=== PATIENT | female | born 1940 | race Caucasian/White ===

== ENCOUNTER → 2018-02-21 08:21 | Outpatient (CLI) | payer MEDICARE, OTHER, SELFPAY ==
[2018-02-21 09:48] LABS: Hemoglobin A1C% w Est Avg Glu 6.8 % (4.0-6.0)
[2018-02-21 10:35] LABS: Vitamin D 25 Hydroxy (D3) 34.4 ng/mL (30.0-100.0)
== END ==
PROVIDERS: PCP Physician Assistant; Visit Provider Physician Assistant
DX: E11.8 Type 2 diabetes mellitus with unspecified complications (principal); M81.0 Age-related osteoporosis without current pathological fracture
CPT/HCPCS: 36415; 82306; 83036

== ENCOUNTER → 2018-07-14 08:41 | Outpatient (CLI) | payer MEDICARE, OTHER, SELFPAY ==
[2018-07-14 09:23] LABS: Hemoglobin A1C% w Est Avg Glu 8.3 % (4.0-6.0)
[2018-07-14 09:24] LABS: Alanine Aminotransferase 27 IU/L (9-52); Albumin 4.2 g/dL (3.5-5.0); Albumin Globulin Ratio 1.6 (1.0-2.8); Alkaline Phosphatase 77 U/L (38-126); Aspartate Aminotransferase 32 IU/L (14-36); BUN Creatinine Ratio 14.3 (6-22); Bilirubin Total 0.6 mg/dL (0.2-1.3); Blood Urea Nitrogen 10 mg/dL (7-17); Calcium 9.5 mg/dL (8.4-10.2); Carbon Dioxide 26 mmol/L (22-32); Chloride 105 mmol/L (98-107); Cholesterol 250 mg/dL (140-199); Estimated Glomerular Filt Rate > 60.0 mL/min (>60); Globulin 2.7 g/dL (1.7-4.1); Glucose 132 mg/dL (80-110); HDL Cholesterol 65 mg/dL (40-60); HEMOLYSIS < 15 (0-50); LDL Cholesterol Calculated 165 mg/dL (<100); Potassium 4.7 mmol/L (3.4-5.1); Sodium 143 mmol/L (137-145); Total Protein 6.9 g/dL (6.3-8.2); Triglycerides 98 mg/dL (35-150)
[2018-07-14 09:33] LABS: Creatinine Urine Random 165.1 mg/dL
[2018-07-14 09:39] LABS: Microalbumi Creatinin Ratio Ur 38.7 ug/mg CR (<30); Microalbumin Urine Random 6.4 mg/dL (0-1.6)
[2018-07-14 09:50] LABS: Vitamin D 25 Hydroxy (D3) 49.1 ng/mL (30.0-100.0)
== END ==
PROVIDERS: PCP Physician Assistant; Visit Provider Physician Assistant
DX: E11.65 Type 2 diabetes mellitus with hyperglycemia (principal); I10 Essential (primary) hypertension; I25.10 Atherosclerotic heart disease of native coronary artery without angina pectoris; E78.2 Mixed hyperlipidemia; M81.0 Age-related osteoporosis without current pathological fracture
CPT/HCPCS: 36415; 80053; 80061; 82043; 82306; 82570; 83036

== ENCOUNTER 2018-10-07 07:54 | Emergency (ER) | payer MEDICARE, OTHER, SELFPAY ==
[2018-10-07 07:58] VITALS: BP 113/77; PULSE 94; RESP 16; TEMP 37.3; O2SAT 98; BMI 23.1
--- NOTE | 2018-10-07 08:39 | ED.HEATRA ---
HPI - Head Injury General Chief complaint: Head Injury Stated complaint: BUMP ON HEAD. FELL Time Seen by Provider: 10/07/18 08:31 Source: patient and family Mode of arrival: ambulatory Limitations: no limitations History of Present Illness HPI Narrative: This is a 78-year-old female comes to the emergency department with complaint of head injury. She states Saturday she was getting out of the car she stepped back and there was a drop off and she fell backwards striking her head on a rubber mat for a wheelchair ramp. Patient states she had a large bruise right away. She denies loss of consciousness. It was a witnessed fall. She does take aspirin she states every other day. Patient states that she has not had any other injuries. She denies any neck or back pain. She has some generalized muscular discomfort throughout her entire back. Patient states that she came in today because she was out of town. Patient is denying any dizziness, no vision changes, no nausea or vomiting. She has not had any other GI or urinary symptoms. No difficulty with breathing or chest pain. Patient states that she is scheduled for a trigger finger surgery tomorrow. Related Data Home Medications Medication Instructions Recorded Confirmed ASPIRIN (Aspir-Low) 81 mg PO QDAY #0 08/13/12 07/29/18 chlorpheniramine maleate 4 mg PO QDAY #0 06/12/16 07/29/18 [Aller-Chlor] [MAGNESIUM] 1 tab PO QDAY #0 06/13/17 07/29/18 [VITAMIN E] 1 tab PO QDAY #0 06/13/17 07/29/18 lysine 500 mg PO QDAY #0 06/13/17 07/29/18 sodium chloride 10 ml IH PRN PRN #0 11/20/17 07/29/18 Advair Diskus 500 mcg/50 mcg See Label Instructions .ROUTE 07/29/18 07/29/18 .COMPLEX Fluticasone 50 mcg See Label Instructions .ROUTE 07/29/18 07/29/18 .COMPLEX Miralax See Label Instructions .ROUTE 07/29/18 07/29/18 .COMPLEX Previous Rx's Medication Instructions Recorded calcium carbonate-vitamin D3 1 tab PO BID #180 tab 06/13/17 [Oyster Shell Calcium-Vit D3] albuterol sulfate HFA 90 2 puff INHALATION Q4-6HP PRN #3 ea 05/22/18 mcg/actuation aerosol inhaler citalopram 20 mg tablet 20 mg PO QDAY #90 tab 05/22/18 glipizide ER 2.5 mg tablet, 2.5 - 5 mg PO QDAY #180 tab 05/22/18 extended release 24 hr metformin 500 mg tablet 500 mg PO TID #180 tab 05/22/18 pantoprazole 40 mg tablet,delayed 40 mg PO HS #90 tab 05/22/18 release rosuvastatin 40 mg tablet 40 mg PO HS #90 tab 05/22/18 tretinoin 0.05 % topical cream 1 applictn TOPICAL HS #45 gram 05/22/18 [Test Strips] #100 each 07/09/18 acarbose 25 mg tablet 25 mg PO TID #90 tab 08/04/18 alendronate 40 mg tablet 40 mg PO QWEEK #12 tab 08/04/18 Allergies Allergy/AdvReac Type Severity Reaction Status Date / Time doxycycline Allergy Mild BLISTERS Verified 10/07/18 07:58 Review of Systems Constitutional Denies headache(s) and Reports other (head injury, bruise/hematoma) ENT Ears, Nose, Mouth, and Throat: Denies headache(s) and Denies neck pain Cardiovascular Denies chest pain, Denies syncope, Denies lightheadedness and Denies dyspnea Respiratory Denies chest congestion, Denies cough and Denies dyspnea Gastrointestinal Gastrointestinal: Denies nausea and Denies vomiting Musculoskeletal Reports as per HPI, Denies back pain, Reports myalgias, Denies arthralgias, Denies limited range of motion, Denies muscle weakness, Denies neck pain and Denies radiating pain into limb Integumentary/Breasts Reports unusual bruising (posterior scalp) Neurologic Denies syncope and Denies headache(s) [facility] Medical History Asthma (Chronic) CAD (coronary artery disease) (Chronic) Depression (Chronic) Diabetes mellitus (Chronic) Hyperlipidemia (Chronic) Hypertension (Chronic) Osteoporosis (Chronic) [place] (myocardial infarction) (Resolved 11/2008) Open bimalleolar fracture of right ankle (Resolved 11/29/17) Surgical History History of heart artery stent (Resolved 11/2008) History of open reduction and internal fixation (ORIF) procedure (Resolved 11/29/17) History of tonsillectomy (Resolved 1961) Status post Tyler fundoplication (Resolved 2001) Status post appendectomy (Resolved 1960) Family History Father Alcoholic Stroke Brother Leukemia Mother [place] (myocardial infarction) Sister Heart disease Sister Alzheimer's disease Sister No problems noted. Brother No problems noted. Family/Other Age: 56 Alcoholic Family/Other Age: 54 Hyperlipidemia Family/Other Age: 53 Hyperlipidemia Social History Smoking Status: Never smoker second hand exposure: Yes (I was for 42 years. ) alcohol intake: never substance use type: does not use Exam Narrative Exam Narrative: GEN: Patient appears in mild distress. HEAD: Patient has a 2 cm hematoma on the right posterior scalp, slightly tender, no bogginess, no raccoon/Evangelista sign. NECK: Nontender, painless range of motion, trachea midline Negative Nexus criteria, there is no line tenderness, distracting injury, altered mental status, neuro deficit, recent EtOH. EYES: PERRLA, EOMI ENT: External inspection normal, trachea is midline, TM's are normal no hemotypanum, Nares are clear, no septal hematoma, no dental or oral injury, airway is normal and with normal occlusion, No bony tenderness RESP: Chest is nontender and has symmetric movement, no ecchymosis, breath sounds are normal no crackles, wheezes or rales CVS: Heart sounds are normal, no murmur noted, No JVD. ABG/GI: Nontender, soft, normal bowel sounds, no distention, no organomegaly. NEURO: Oriented AOx3, neuro is grossly intact, sensation and motor is normal all 4 extremities moving, cranial nerves II through XII are intact, GCS is 15, gait is normal. PSYCH: Normal mood and affect SKIN: Intact, warm and dry, no crepitus and without decubitus BACK: No CVA tenderness, no vertebral tenderness, no step-off's, no crepitus EXT: Atraumatic, hips are nontender, no pedal edema, normal color and temperature, normal range of motion of extremities with normal tendon exam, 2+ pulses in all four extremities Initial Vital Signs Initial Vital Signs: Vital Signs Temperature 99.1 F 10/07/18 07:58 Pulse Rate 94 H 10/07/18 07:58 Respiratory Rate 16 10/07/18 07:58 Blood Pressure 113/77 10/07/18 07:58 Pulse Oximetry 98 10/07/18 07:58 Course Orders Ordered: ED Orders 10/07/18 08:41 CT head/brain wo con Stat Vital Signs - 8 hr 10/07/18 07:58 Temperature 99.1 F Pulse Rate 94 H Respiratory Rate 16 Blood Pressure 113/77 Pulse Oximetry 98 MDM - Head Injury Imaging Data CT scan - head: Radiologist's impression: [address] [address] [address] Scan Report Signed Patient: Poppy Meier MR#: [id number] : 1940 Acct:[id number] Age/Sex: 78 / F Date of Service: 10/07/18 Loc: ED Accession Number: [id number] Procedure: CT head/brain wo con Ordering Provider: Tamiko Min D.O. PROCEDURE: CT HEAD/BRAIN WO CON INDICATIONS: 78 year-old female on aspirin status post recent head trauma. TECHNIQUE: Noncontrast 4.5 mm thick angled axial sections acquired from the foramen magnum to the vertex, with coronal and sagittal reformats. For radiation dose reduction, the following was used: automated exposure control, adjustment of mA and/or kV according to patient size. COMPARISON: [facility], CT, HEAD WITHOUT CONTRAST, 11/10/2014, 15:47. FINDINGS: Image quality: Excellent. CSF spaces: Basal cisterns are patent. No extra-axial fluid collections. The ventricles are symmetric in size and shape. There is mild cerebral volume loss, with resultant ventricular and sulcal prominence. Brain: No intracranial hemorrhage, mass, or mass effect. There are subcortical, periventricular and deep white matter hypodensities consistent with mild chronic small vessel ischemic changes. There is intracranial internal carotid artery atherosclerosis. Skull and face: Calvarium and visualized facial bones appear intact, without suspicious lesions. Sinuses: Visualized sinuses demonstrate moderate mucosal thickening within the ethmoid sinuses. The mastoid air cells are clear. IMPRESSION: 1. No acute intracranial abnormality. 2. Mild chronic white matter small vessel ischemic changes and cerebral volume loss. Dictated by: Doug Bernardo M.D. on 10/07/2018 at 9:15 Approved by: Doug Bernardo M.D. on 10/07/2018 at 9:17 MDM Narrative Medical decision making narrative: Patient clinically cleared for her cervical spine. Patient's head CT is negative for any intracranial hemorrhage or other pathology. Discussed with patient she has got some generalized musculoskeletal discomfort but otherwise doing well. Discharged home with recommendations for concussion guidelines and signs and symptoms to watch out for although patient is not describing any symptoms consistent with concussion. Discharge Plan Departure Patient Disposition: Home Clinical Impression: Head injury Discharge Date/Time: 10/07/18 09:51 Interventions: ED Discharge Assessment Last Done: 10/07/18 09:51 Instructions: Closed Head Injury Activity Restrictions/Additional Instructions: Follow-up with her primary care physician in the next 7-10 days if you're having any continuing symptoms. Continue home medications as prescribed. You may take Tylenol as needed for pain. You may take up to a 1000 mg every 8 hr as needed for pain. Return to the Emergency Department for any new or worsening symptoms. Return to the Emergency Department for fevers not controlled by ibuprofen/Tylenol, severe abdominal pain, chest pain, shortness of breath, passing out, facial droop, new weakness or numbness, persistent vomiting, worrisome rash, or any other new or worsening symptoms. Prescriptions: No Action Fluticasone 50 mcg See Patient Comments .ROUTE .COMPLEX RF: 0 Advair Diskus 500 mcg/50 mcg See Patient Comments .ROUTE .COMPLEX RF: 0 Miralax See Patient Comments .ROUTE .COMPLEX RF: 0 ASPIRIN (Aspir-Low) 81 mg PO QDAY Qty: 0 RF: 0 chlorpheniramine maleate [Aller-Chlor] 4 MG tablet 4 mg PO QDAY Qty: 0 RF: 0 lysine 500 MG tablet 500 mg PO QDAY Qty: 0 RF: 0 [VITAMIN E] 1 tab PO QDAY Qty: 0 RF: 0 [MAGNESIUM] 1 tab PO QDAY Qty: 0 RF: 0 calcium carbonate-vitamin D3 [Oyster Shell Calcium-Vit D3] 500 MG/200 IU tablet 1 tab PO BID Qty: 180 RF: 3 sodium chloride 15 ML solution for nebulization 10 ml IH PRN PRNQty: 0 RF: 0 citalopram [Celexa] 20 mg tablet 20 mg PO QDAY Qty: 90 RF: 3 glipizide [Glucotrol XL] 2.5 mg tablet extended release 24hr 2.5 - 5 mg PO QDAY Qty: 180 RF: 3 metformin [Glucophage] 500 mg tablet 500 mg PO TID Qty: 180 RF: 3 pantoprazole 40 mg tablet,delayed release (DR/EC) 40 mg PO HS Qty: 90 RF: 3 rosuvastatin 40 mg tablet 40 mg PO HS Qty: 90 RF: 3 albuterol sulfate [Ventolin HFA] 90 mcg/actuation HFA aerosol inhaler 2 puff INHALATION Q4-6HP PRN (Reason: shortness of breath) Qty: 3 RF: 3 tretinoin 0.05 % cream 1 applictn Topical HS Qty: 45 RF: 0 [Test Strips] .Route .MEDSUPPLY Qty: 100 RF: 0 alendronate 40 mg tablet 40 mg PO QWEEK Qty: 12 RF: 0 acarbose 25 mg tablet 25 mg PO TID Qty: 90 RF: 3 Referrals: Florinda Goins PA-C [Primary Care Provider] -
--- NOTE | 2018-10-07 08:43 | ED_ITS ---
HPI - Head Injury General Chief complaint: Head Injury Stated complaint: BUMP ON HEAD. FELL Time Seen by Provider: 10/07/18 08:31 Source: patient and family Mode of arrival: ambulatory Limitations: no limitations History of Present Illness HPI Narrative: This is a 78-year-old female comes to the emergency department with complaint of head injury. She states Saturday she was getting out of the car she stepped back and there was a drop off and she fell backwards striking her head on a rubber mat for a wheelchair ramp. Patient states she had a large bruise right away. She denies loss of consciousness. It was a witnessed fall. She does take aspirin she states every other day. Patient states that she has not had any other injuries. She denies any neck or back pain. She has some generalized muscular discomfort throughout her entire back. Patient states that she came in today because she was out of town. Patient is denying any dizziness, no vision changes, no nausea or vomiting. She has not had any other GI or urinary symptoms. No difficulty with breathing or chest pain. Patient states that she is scheduled for a trigger finger surgery tomorrow. Related Data Home Medications Medication Instructions Recorded Confirmed ASPIRIN (Aspir-Low) 81 mg PO QDAY #0 08/13/12 07/29/18 chlorpheniramine maleate 4 mg PO QDAY #0 06/12/16 07/29/18 [Aller-Chlor] [MAGNESIUM] 1 tab PO QDAY #0 06/13/17 07/29/18 [VITAMIN E] 1 tab PO QDAY #0 06/13/17 07/29/18 lysine 500 mg PO QDAY #0 06/13/17 07/29/18 sodium chloride 10 ml IH PRN PRN #0 11/20/17 07/29/18 Advair Diskus 500 mcg/50 mcg See Label Instructions .ROUTE 07/29/18 07/29/18 .COMPLEX Fluticasone 50 mcg See Label Instructions .ROUTE 07/29/18 07/29/18 .COMPLEX Miralax See Label Instructions .ROUTE 07/29/18 07/29/18 .COMPLEX Previous Rx's Medication Instructions Recorded calcium carbonate-vitamin D3 1 tab PO BID #180 tab 06/13/17 [Oyster Shell Calcium-Vit D3] albuterol sulfate HFA 90 2 puff INHALATION Q4-6HP PRN #3 ea 05/22/18 mcg/actuation aerosol inhaler citalopram 20 mg tablet 20 mg PO QDAY #90 tab 05/22/18 glipizide ER 2.5 mg tablet, 2.5 - 5 mg PO QDAY #180 tab 05/22/18 extended release 24 hr metformin 500 mg tablet 500 mg PO TID #180 tab 05/22/18 pantoprazole 40 mg tablet,delayed 40 mg PO HS #90 tab 05/22/18 release rosuvastatin 40 mg tablet 40 mg PO HS #90 tab 05/22/18 tretinoin 0.05 % topical cream 1 applictn TOPICAL HS #45 gram 05/22/18 [Test Strips] #100 each 07/09/18 acarbose 25 mg tablet 25 mg PO TID #90 tab 08/04/18 alendronate 40 mg tablet 40 mg PO QWEEK #12 tab 08/04/18 Allergies Allergy/AdvReac Type Severity Reaction Status Date / Time doxycycline Allergy Mild BLISTERS Verified 10/07/18 07:58 Review of Systems Constitutional Denies headache(s) and Reports other (head injury, bruise/hematoma) ENT Ears, Nose, Mouth, and Throat: Denies headache(s) and Denies neck pain Cardiovascular Denies chest pain, Denies syncope, Denies lightheadedness and Denies dyspnea Respiratory Denies chest congestion, Denies cough and Denies dyspnea Gastrointestinal Gastrointestinal: Denies nausea and Denies vomiting Musculoskeletal Reports as per HPI, Denies back pain, Reports myalgias, Denies arthralgias, Denies limited range of motion, Denies muscle weakness, Denies neck pain and Denies radiating pain into limb Integumentary/Breasts Reports unusual bruising (posterior scalp) Neurologic Denies syncope and Denies headache(s) [facility] Medical History Asthma (Chronic) CAD (coronary artery disease) (Chronic) Depression (Chronic) Diabetes mellitus (Chronic) Hyperlipidemia (Chronic) Hypertension (Chronic) Osteoporosis (Chronic) [place] (myocardial infarction) (Resolved 11/2008) Open bimalleolar fracture of right ankle (Resolved 11/29/17) Surgical History History of heart artery stent (Resolved 11/2008) History of open reduction and internal fixation (ORIF) procedure (Resolved 11/29) History of tonsillectomy (Resolved 1961) Status post Tyler fundoplication (Resolved 2001) Status post appendectomy (Resolved 1960) Family History Father Alcoholic Stroke Brother Leukemia Mother [place] (myocardial infarction) Sister Heart disease Sister Alzheimer's disease Sister No problems noted. Brother No problems noted. Family/Other Age: 56 Alcoholic Family/Other Age: 54 Hyperlipidemia Family/Other Age: 53 Hyperlipidemia Social History Smoking Status: Never smoker second hand exposure: Yes (I was for 42 years. ) alcohol intake: never substance use type: does not use Exam Narrative Exam Narrative: GEN: Patient appears in mild distress. HEAD: Patient has a 2 cm hematoma on the right posterior scalp, slightly tender , no bogginess, no raccoon/Evangelista sign. NECK: Nontender, painless range of motion, trachea midline Negative Nexus criteria, there is no line tenderness, distracting injury, altered mental status, neuro deficit, recent EtOH. EYES: PERRLA, EOMI ENT: External inspection normal, trachea is midline, TM's are normal no hemotypanum, Nares are clear, no septal hematoma, no dental or oral injury, airway is normal and with normal occlusion, No bony tenderness RESP: Chest is nontender and has symmetric movement, no ecchymosis, breath sounds are normal no crackles, wheezes or rales CVS: Heart sounds are normal, no murmur noted, No JVD. ABG/GI: Nontender, soft, normal bowel sounds, no distention, no organomegaly. NEURO: Oriented AOx3, neuro is grossly intact, sensation and motor is normal all 4 extremities moving, cranial nerves II through XII are intact, GCS is 15, gait is normal. PSYCH: Normal mood and affect SKIN: Intact, warm and dry, no crepitus and without decubitus BACK: No CVA tenderness, no vertebral tenderness, no step-off's, no crepitus EXT: Atraumatic, hips are nontender, no pedal edema, normal color and temperature, normal range of motion of extremities with normal tendon exam, 2+ pulses in all four extremities Initial Vital Signs Initial Vital Signs: Vital Signs Temperature 99.1 F 10/07/18 07:58 Pulse Rate 94 H 10/07/18 07:58 Respiratory Rate 16 10/07/18 07:58 Blood Pressure 113/77 10/07/18 07:58 Pulse Oximetry 98 10/07/18 07:58 Course Orders Ordered: ED Orders 10/07/18 08:41 CT head/brain wo con Stat Vital Signs - 8 hr 10/07/18 07:58 Temperature 99.1 F Pulse Rate 94 H Respiratory Rate 16 Blood Pressure 113/77 Pulse Oximetry 98 MDM - Head Injury Imaging Data CT scan - head: Radiologist's impression: [address] [address] [address] Scan Report Signed Patient: Poppy Meier MR#: [id number] : 1940 Acct:[id number] Age/Sex: 78 / F Date of Service: 10/07/18 Loc: ED Accession Number: [id number] Procedure: CT head/brain wo con Ordering Provider: Tamiko Min D.O. PROCEDURE: CT HEAD/BRAIN WO CON INDICATIONS: 78 year-old female on aspirin status post recent head trauma. TECHNIQUE: Noncontrast 4.5 mm thick angled axial sections acquired from the foramen magnum to the vertex, with coronal and sagittal reformats. For radiation dose reduction, the following was used: automated exposure control, adjustment of mA and/or kV according to patient size. COMPARISON: [facility], CT, HEAD WITHOUT CONTRAST, 11/10/2014, 15:47. FINDINGS: Image quality: Excellent. CSF spaces: Basal cisterns are patent. No extra-axial fluid collections. The ventricles are symmetric in size and shape. There is mild cerebral volume loss , with resultant ventricular and sulcal prominence. Brain: No intracranial hemorrhage, mass, or mass effect. There are subcortical , periventricular and deep white matter hypodensities consistent with mild chronic small vessel ischemic changes. There is intracranial internal carotid artery atherosclerosis. Skull and face: Calvarium and visualized facial bones appear intact, without suspicious lesions. Sinuses: Visualized sinuses demonstrate moderate mucosal thickening within the ethmoid sinuses. The mastoid air cells are clear. IMPRESSION: 1. No acute intracranial abnormality. 2. Mild chronic white matter small vessel ischemic changes and cerebral volume loss. Dictated by: Doug Bernardo M.D. on 10/07/2018 at 9:15 Approved by: Doug Bernardo M.D. on 10/07/2018 at 9:17 MDM Narrative Medical decision making narrative: Patient clinically cleared for her cervical spine. Patient's head CT is negative for any intracranial hemorrhage or other pathology. Discussed with patient she has got some generalized musculoskeletal discomfort but otherwise doing well. Discharged home with recommendations for concussion guidelines and signs and symptoms to watch out for although patient is not describing any symptoms consistent with concussion. Discharge Plan Departure Patient Disposition: Home Clinical Impression: Head injury Discharge Date/Time: 10/07/18 09:51 Interventions: ED Discharge Assessment Last Done: 10/07/18 09:51 Instructions: Closed Head Injury Activity Restrictions/Additional Instructions: Follow-up with her primary care physician in the next 7-10 days if you're having any continuing symptoms. Continue home medications as prescribed. You may take Tylenol as needed for pain. You may take up to a 1000 mg every 8 hr as needed for pain. Return to the Emergency Department for any new or worsening symptoms. Return to the Emergency Department for fevers not controlled by ibuprofen/ Tylenol, severe abdominal pain, chest pain, shortness of breath, passing out, facial droop, new weakness or numbness, persistent vomiting, worrisome rash, or any other new or worsening symptoms. Prescriptions: No Action Fluticasone 50 mcg See Patient Comments .ROUTE .COMPLEX RF: 0 Advair Diskus 500 mcg/50 mcg See Patient Comments .ROUTE .COMPLEX RF: 0 Miralax See Patient Comments .ROUTE .COMPLEX RF: 0 ASPIRIN (Aspir-Low) 81 mg PO QDAY Qty: 0 RF: 0 chlorpheniramine maleate [Aller-Chlor] 4 MG tablet 4 mg PO QDAY Qty: 0 RF: 0 lysine 500 MG tablet 500 mg PO QDAY Qty: 0 RF: 0 [VITAMIN E] 1 tab PO QDAY Qty: 0 RF: 0 [MAGNESIUM] 1 tab PO QDAY Qty: 0 RF: 0 calcium carbonate-vitamin D3 [Oyster Shell Calcium-Vit D3] 500 MG/200 IU tablet 1 tab PO BID Qty: 180 RF: 3 sodium chloride 15 ML solution for nebulization 10 ml IH PRN PRNQty: 0 RF: 0 citalopram [Celexa] 20 mg tablet 20 mg PO QDAY Qty: 90 RF: 3 glipizide [Glucotrol XL] 2.5 mg tablet extended release 24hr 2.5 - 5 mg PO QDAY Qty: 180 RF: 3 metformin [Glucophage] 500 mg tablet 500 mg PO TID Qty: 180 RF: 3 pantoprazole 40 mg tablet,delayed release (DR/EC) 40 mg PO HS Qty: 90 RF: 3 rosuvastatin 40 mg tablet 40 mg PO HS Qty: 90 RF: 3 albuterol sulfate [Ventolin HFA] 90 mcg/actuation HFA aerosol inhaler 2 puff INHALATION Q4-6HP PRN (Reason: shortness of breath) Qty: 3 RF: 3 tretinoin 0.05 % cream 1 applictn Topical HS Qty: 45 RF: 0 [Test Strips] .Route .MEDSUPPLY Qty: 100 RF: 0 alendronate 40 mg tablet 40 mg PO QWEEK Qty: 12 RF: 0 acarbose 25 mg tablet 25 mg PO TID Qty: 90 RF: 3 Referrals: Florinda Goins PA-C [Primary Care Provider] -
[2018-10-07 09:50] VITALS: BP 124/81; PULSE 67; RESP 15; O2SAT 97
== END 2018-10-07 09:51 | disposition home or self-care (01) ==
PROVIDERS: Emergency Provider Emergency Medicine; PCP Physician Assistant
DX: S09.90XA Unspecified injury of head, initial encounter (principal); W19.XXXA Unspecified fall, initial encounter
CPT/HCPCS: 70450; 99282; 99284

== ENCOUNTER → 2018-11-25 07:22 | Outpatient (CLI) | payer MEDICARE, OTHER, SELFPAY ==
[2018-11-25 08:23] LABS: Cholesterol 149 mg/dL (140-199); HDL Cholesterol 58 mg/dL (40-60); LDL Cholesterol Calculated 76 mg/dL (<100); Triglycerides 75 mg/dL (35-150)
[2018-11-25 08:24] LABS: Hemoglobin A1C% w Est Avg Glu 8.1 % (4.0-6.0)
== END ==
PROVIDERS: PCP Physician Assistant; Visit Provider Physician Assistant
DX: E11.65 Type 2 diabetes mellitus with hyperglycemia (principal); E11.8 Type 2 diabetes mellitus with unspecified complications; E78.2 Mixed hyperlipidemia
CPT/HCPCS: 36415; 80061; 83036

== ENCOUNTER → 2019-03-12 08:27 | Outpatient (CLI) | payer MEDICARE, OTHER, SELFPAY ==
[2019-03-12 09:19] LABS: Hemoglobin A1C% w Est Avg Glu 7.6 % (4.0-6.0)
[2019-03-12 09:33] LABS: Cholesterol 144 mg/dL (140-199); HDL Cholesterol 52 mg/dL (40-60); LDL Cholesterol Calculated 68 mg/dL (<100); Triglycerides 118 mg/dL (35-150)
== END ==
PROVIDERS: PCP Physician Assistant; Visit Provider Physician Assistant
DX: E11.65 Type 2 diabetes mellitus with hyperglycemia (principal); E11.8 Type 2 diabetes mellitus with unspecified complications; E78.2 Mixed hyperlipidemia
CPT/HCPCS: 36415; 80061; 83036

== ENCOUNTER 2019-03-21 11:30 | Emergency (ER) | payer MEDICARE, OTHER, SELFPAY ==
[2019-03-21 11:35] VITALS: BP 128/99; PULSE 89; RESP 13; TEMP 36.9; O2SAT 97; BMI 22.6
--- NOTE | 2019-03-21 11:43 | DI.RAD.S_ITS ---
PROCEDURE: XR CHEST 1V INDICATIONS: chest pain TECHNIQUE: One view of the chest was acquired. COMPARISON: [facility], CHEST 1 VIEW, 07/03/2016, 2:15. [facility], CHEST 2 VIEW, 06/12/2016, 14:34. FINDINGS: Surgical changes and devices: None. Lungs and pleura: Lungs are clear. No pleural effusions or pneumothorax. Mediastinum: Mediastinal contours appear normal. Heart size is normal. Bones and chest wall: No suspicious bony lesions. Overlying soft tissues appear unremarkable. IMPRESSION: No acute process. Dictated by: Leslee Alejandro M.D. on 03/21/2019 at 11:39 Approved by: Leslee Alejandro M.D. on 03/21/2019 at 11:39
--- NOTE | 2019-03-21 11:43 | ED.CHESTPAIN ---
HPI - Chest Pain General Chief Complaint: Chest Pain Stated Complaint: Feels like weight on chest Time Seen by Provider: 03/21/19 11:36 Source: patient and family Mode of arrival: ambulatory Limitations: no limitations History of Present Illness HPI narrative: The patient is a 78-year-old female history of coronary artery disease presenting with what she thought was GERD. She woke up this morning with acid like reflux symptoms and some chest pressure. She actually had this yesterday as well he took nitro glycerin it did not seem to help. It stays in the center of her chest that is nonradiating nothing makes it better or worse. She denies any shortness of breath, no heart palpitations MD complaint: chest pain Duration: constant Pain radiation: none Relieving factors: nothing Exacerbating factors: nothing Related Data Home Medications Medication Instructions Recorded Confirmed lysine 500 mg PO QDAY #0 06/13/17 03/21/19 aspirin [Aspirin Childrens] 81 mg PO DAILY 03/21/19 03/21/19 fluticasone propion-salmeterol 1 inh INHALATION BID PRN 03/21/19 03/21/19 [Advair Diskus] Previous Rx's Medication Instructions Recorded calcium carbonate-vitamin D3 1 tab PO BID #180 tab 06/13/17 [Oyster Shell Calcium-Vit D3] albuterol sulfate HFA 90 2 puff INHALATION Q4-6HP PRN #3 ea 05/22/18 mcg/actuation aerosol inhaler pantoprazole 40 mg tablet,delayed 40 mg PO HS #90 tab 05/22/18 release rosuvastatin 40 mg tablet 40 mg PO HS #90 tab 05/22/18 [Test Strips] #100 each 07/09/18 acarbose 25 mg tablet 25 mg PO TID #90 tab 08/04/18 alendronate 40 mg tablet 40 mg PO QWEEK #12 tab 11/27/18 citalopram 20 mg tablet 20 mg PO QDAY #90 tab 01/29/19 glipizide ER 2.5 mg tablet, 2.5 - 5 mg PO QDAY #180 tab 01/29/19 extended release 24 hr metformin 500 mg tablet 500 mg PO TID #180 tab 01/29/19 Allergies Allergy/AdvReac Type Severity Reaction Status Date / Time doxycycline Allergy Mild BLISTERS Verified 03/21/19 11:46 Review of Systems Review of Systems GENERAL: Denies chills, fatigue, malaise, fever, sweats, travel HEENT: Denies sinus pain, ear pain, sore throat, difficulty swallowing, neck pain RESPIRATORY: Denies dyspnea, cough, wheezing, hemoptysis, sputum. CARDIOVASCULAR: See HPI GASTROINTESTINAL: Denies nausea, vomiting, abdominal pain, diarrhea, constipation, melena. : Denies dysuria, frequency, incontinence, hematuria, urinary retention, flank pain. MUSCULOSKELETAL: Denies weakness, joint pain, or bony pain SKIN: No rash, no erythema, no pruritus NEUROLOGIC: Denies weakness, dizziness, headache, numbness, change in speech, confusion PSYCHIATRIC: No concerning psychosocial issues. 12 point review of systems is negative except for those stated above and HPI [facility] Family History (Updated 07/22/18 @ 09:27 by Philly Mayo) Father Alcoholic Stroke Brother Leukemia Mother [place] (myocardial infarction) Sister Heart disease Sister Alzheimer's disease Sister No problems noted. Brother No problems noted. Family/Other Age: 56 Alcoholic Family/Other Age: 54 Hyperlipidemia Family/Other Age: 53 Hyperlipidemia Social History Smoking Status: Never smoker second hand exposure: Yes (I was for 42 years. ) alcohol intake: never substance use type: does not use Exam Initial Vital Signs Initial Vital Signs: Vital Signs Temperature 98.4 F 03/21/19 11:35 Pulse Rate 89 03/21/19 11:35 Respiratory Rate 13 03/21/19 11:35 Blood Pressure 128/99 H 03/21/19 11:35 Pulse Oximetry 97 03/21/19 11:35 GENERAL: Alert pleasant elderly female no acute distress HEENT: Head atraumatic,EOMI, pupils reactive, face symmetric, [moist] mucous membranes CARDIOVASCULAR: Regular rate and rhythm without murmurs, rubs or gallops. RESPIRATORY: Breath sounds equal bilaterally, no wheezes rales or rhonchi. ABDOMEN: Soft, nontender. Normoactive bowel sounds all 4 quadrants. No guarding or rebound. EXTREMITIES: Normal range of motion, no clubbing or edema. Neurovascularly intact NEUROLOGICAL: Alert and oriented x4.Normal gait and speech. Cranial nerves II through XII grossly intact. SKIN: Warm, dry, no laceration, no petechiae, no rashes or lesions. Course Orders Ordered: ED Orders 03/21/19 11:43 XR chest 1V Stat EKG-12 Lead Stat 03/21/19 11:50 B Type Natriuretic Peptide Stat Complete Blood Count AUTO DIFF Stat Comprehensive Metabolic Panel Stat Lipase Stat Partial Thromboplastin Time Stat Prothrombin Time INR Stat Troponin & CK Cardiac Panel Stat 03/21/19 14:31 EKG-12 Lead Stat 03/21/19 14:55 Troponin I Stat Discontinued Medications Aspirin (Aspirin Chew) 324 mg PO NOW ONE Stop: 03/21/19 11:44 Last Admin: 03/21/19 11:44 Dose: 324 mg Sodium Chloride (Normal Saline 0.9%) 1,000 mls @ 150 mls/hr IV CONT TERRIE Last Infusion: 03/21/19 16:22 Dose: 0 mls/hr Admin: 03/21/19 11:45 Dose: 150 mls/hr Nitroglycerin (Nitrostat) 0.4 mg SL NOW ONE Stop: 03/21/19 11:44 Last Admin: 03/21/19 11:45 Dose: 0.4 mg Nitroglycerin (Nitrostat) 0.4 mg SL [id number] PRN PRN Reason: Chest Pain Pantoprazole Sodium (Protonix) 40 mg IV NOW ONE Stop: 03/21/19 12:06 Last Admin: 03/21/19 12:16 Dose: 40 mg Vital Signs - 8 hr 03/21/19 11:35 03/21/19 11:45 03/21/19 12:06 Temperature 98.4 F Pulse Rate 89 82 88 Respiratory Rate 13 11 L Blood Pressure 128/99 H 135/102 H 123/66 Blood Pressure [Left Arm] 123/66 Pulse Oximetry 97 97 03/21/19 13:10 03/21/19 15:09 03/21/19 16:07 Temperature Pulse Rate 76 83 73 Respiratory Rate 11 L 16 16 Blood Pressure Blood Pressure [Left Arm] 117/64 128/70 121/66 Pulse Oximetry 96 97 97 MDM - Chest Pain Lab Data Attestation: I reviewed the patient's lab results. Result diagrams: 03/21/19 11:50 03/21/19 11:50 Lab Results 03/21/19 03/21/19 03/21/19 Range/Units 11:50 11:50 11:50 WBC 5.5 (4.5-11.0) X10^3/uL RBC 4.82 (4.0-5.2) X10^6/uL Hgb 13.7 (12.0-16.0) g/dL Hct 41.4 (36-46) % MCV 85.8 (80-100) fL MCH 28.4 (26-34) PG MCHC 33.1 (30-36) % RDW 15.2 H (11.6-14.8) % Plt Count 185 (150-400) X10^3/uL Neut % (Auto) 47.3 L (50-75) % Lymph % (Auto) 22.8 L (25-40) % [place] % (Auto) 7.1 (3-14) % Eos % (Auto) 20.5 H (2-4) % Baso % (Auto) 2.3 H (0-2) % Neut # (Auto) 2600 (1719-8642) /uL Lymph # (Auto) 1300 (9718-3861) /uL [place] # (Auto) 400 (0-900) /uL Eos # (Auto) 1100 H (0-450) /uL Baso # (Auto) 100 (0-100) /uL PT 11.4 (10.1-12.7) SECONDS INR 1.0 (0.9-1.3) APTT 30 (26.4-36.2) SECONDS Sodium 141 (137-145) mmol/L Potassium 4.8 (3.4-5.1) mmol/L Chloride 105 (98-107) mmol/L Carbon Dioxide 27 (22-32) mmol/L BUN 10 (7-17) mg/dL Creatinine 0.60 (0.52-1.04) mg/dL Estimated GFR > 60.0 (>60) mL/min BUN/Creatinine Ratio 16.7 (6-22) Glucose 240 H (80-110) mg/dL Calcium 10.2 (8.4-10.2) mg/dL Total Bilirubin 0.7 (0.2-1.3) mg/dL AST 24 (14-36) IU/L ALT 20 (9-52) IU/L Alkaline Phosphatase 56 (38-126) U/L Total Creatine Kinase 30 (30-135) U/L CK-MB (CK-2) TNP CK-MB (CK-2) Rel Index TNP Troponin I < 0.012 (0.01-0.034) ng/mL B-Natriuretic Peptide < 100 (<100) Total Protein 7.2 (6.3-8.2) g/dL Albumin 4.3 (3.5-5.0) g/dL Globulin 2.9 (1.7-4.1) g/dL Albumin/Globulin Ratio 1.5 (1.0-2.8) Lipase 92 (23-300) U/L 03/21/19 Range/Units 14:55 WBC (4.5-11.0) X10^3/uL RBC (4.0-5.2) X10^6/uL Hgb (12.0-16.0) g/dL Hct (36-46) % MCV (80-100) fL MCH (26-34) PG MCHC (30-36) % RDW (11.6-14.8) % Plt Count (150-400) X10^3/uL Neut % (Auto) (50-75) % Lymph % (Auto) (25-40) % [place] % (Auto) (3-14) % Eos % (Auto) (2-4) % Baso % (Auto) (0-2) % Neut # (Auto) (6662-9840) /uL Lymph # (Auto) (8871-7797) /uL [place] # (Auto) (0-900) /uL Eos # (Auto) (0-450) /uL Baso # (Auto) (0-100) /uL PT (10.1-12.7) SECONDS INR (0.9-1.3) APTT (26.4-36.2) SECONDS Sodium (137-145) mmol/L Potassium (3.4-5.1) mmol/L Chloride (98-107) mmol/L Carbon Dioxide (22-32) mmol/L BUN (7-17) mg/dL Creatinine (0.52-1.04) mg/dL Estimated GFR (>60) mL/min BUN/Creatinine Ratio (6-22) Glucose (80-110) mg/dL Calcium (8.4-10.2) mg/dL Total Bilirubin (0.2-1.3) mg/dL AST (14-36) IU/L ALT (9-52) IU/L Alkaline Phosphatase (38-126) U/L Total Creatine Kinase (30-135) U/L CK-MB (CK-2) CK-MB (CK-2) Rel Index Troponin I < 0.012 (0.01-0.034) ng/mL B-Natriuretic Peptide (<100) Total Protein (6.3-8.2) g/dL Albumin (3.5-5.0) g/dL Globulin (1.7-4.1) g/dL Albumin/Globulin Ratio (1.0-2.8) Lipase (23-300) U/L Imaging Data Chest x-ray: Radiologist's impression: PROCEDURE: XR CHEST 1V INDICATIONS: chest pain TECHNIQUE: One view of the chest was acquired. COMPARISON: [facility], CHEST 1 VIEW, 07/03/2016, 2:15. [facility], CHEST 2 VIEW, 06/12/2016, 14:34. FINDINGS: Surgical changes and devices: None. Lungs and pleura: Lungs are clear. No pleural effusions or pneumothorax. Mediastinum: Mediastinal contours appear normal. Heart size is normal. Bones and chest wall: No suspicious bony lesions. Overlying soft tissues appear unremarkable. IMPRESSION: No acute process. Dictated by: Leslee Alejandro M.D. on 03/21/2019 at 11:39 ECG Data Attestation: I personally reviewed and interpreted this ECG as follows: Prior ECG tracings: available for review Interpretation: EKG 1.: Normal sinus rhythm rate 80 low voltage noted in lead [address] changes no T-wave inversion from previous EKG no ST elevations or depressions [place] interval 186 EKG 2. Normal sinus rhythm rate 89 similar to prior no changes EKG 3. Normal sinus rhythm rate [address] changes or other prior EKG MDM Narrative Medical decision making narrative: Patient has have to 3 hour troponins which are negative. She is chest pain-free. And no EKG changes I discussed with her that she still needs a stress test. Her PCP can arrange this for her. I discussed with her and her if she should have any new or worsening chest discomfort she needs return to the ER immediately and can even call 911. She agrees. She overall is feeling much better. Patient had no change with nitroglycerin. Discharge Plan Departure Patient Disposition: Home Clinical Impression: Atypical chest pain Discharge Date/Time: 03/21/19 16:23 Interventions: ED Discharge Assessment Last Done: 03/21/19 16:22 Instructions: DI for Atypical Chest Pain Activity Restrictions/Additional Instructions: *You have been diagnosed with atypical chest *What to do: You still need a stress test. Please talk to your primary for scheduling *Continue to take medications as directed *Follow up with your primary care provider in 2-3 days *Return to ER if you should have increasing chest pain, shortness of breath or any new, worsening or concerning symptoms Prescriptions: No Action alendronate 40 mg tablet 40 mg PO QWEEK Qty: 12 RF: 3 lysine 500 MG tablet 500 mg PO QDAY Qty: 0 RF: 0 calcium carbonate-vitamin D3 [Oyster Shell Calcium-Vit D3] 500 MG/200 IU tablet 1 tab PO BID Qty: 180 RF: 3 pantoprazole 40 mg tablet,delayed release (DR/EC) 40 mg PO HS Qty: 90 RF: 3 rosuvastatin 40 mg tablet 40 mg PO HS Qty: 90 RF: 3 albuterol sulfate [Ventolin HFA] 90 mcg/actuation HFA aerosol inhaler 2 puff INHALATION Q4-6HP PRN (Reason: shortness of breath) Qty: 3 RF: 3 [Test Strips] .Route .MEDSUPPLY Qty: 100 RF: 0 acarbose 25 mg tablet 25 mg PO TID Qty: 90 RF: 3 glipizide [Glucotrol XL] 2.5 mg tablet extended release 24hr 2.5 - 5 mg PO QDAY Qty: 180 RF: 3 metformin [Glucophage] 500 mg tablet 500 mg PO TID Qty: 180 RF: 3 citalopram [Celexa] 20 mg tablet 20 mg PO QDAY Qty: 90 RF: 3 aspirin [Aspirin Childrens] 81 mg Tablet,Chewable 81 mg PO DAILY RF: 0 fluticasone propion-salmeterol [Advair Diskus] 250-50 mcg/dose Blister With Device 1 inh INHALATION BID PRN (Reason: allergies) RF: 0 Referrals: Florinda Goins PA-C [Primary Care Provider] -
[2019-03-21] MEDS: ASPIRIN 81 MG TAB 324 MG PO (11:44)
[2019-03-21 11:45] VITALS: BP 135/102; PULSE 82
[2019-03-21] MEDS: SODIUM CHLORIDE 0.9% 1,000 ML 150 ML IV (11:45)
[2019-03-21] MEDS: NITROGLYCERIN 0.4 MG SL TAB SL (11:45)
[2019-03-21 11:59] LABS: Add Manual Diff / Slide Review NO; Basophils Absolute Auto 100 /uL (0-100); Basophils Percent Auto 2.3 % (0-2); Eosinophils Absolute Auto 1100 /uL (0-450); Eosinophils Percent Auto 20.5 % (2-4); Hematocrit 41.4 % (36-46); Hemoglobin 13.7 g/dL (12.0-16.0); Lymphocytes Absolute Auto 1300 /uL (1100-4500); Lymphocytes Percent Auto 22.8 % (25-40); Mean Corpuscular HGB Conc 33.1 % (30-36); Mean Corpuscular Hemoglobin 28.4 PG (26-34); Mean Corpuscular Volume 85.8 fL (80-100); Monocytes Absolute Auto 400 /uL (0-900); Monocytes Percent Auto 7.1 % (3-14); Neutrophils Absolute Auto 2600 /uL (1500-7000); Neutrophils Percent Auto 47.3 % (50-75); Platelet Count 185 X10^3/uL (150-400); Red Blood Cell Count 4.82 X10^6/uL (4.0-5.2); Red Cell Distribution Width 15.2 % (11.6-14.8); White Blood Cell Count 5.5 X10^3/uL (4.5-11.0)
[2019-03-21 12:06] VITALS: BP 123/66; PULSE 84; PULSE 88; RESP 11; O2SAT 97
[2019-03-21 12:09] LABS: Prothrombin Time 11.4 SECONDS (10.1-12.7)
[2019-03-21 12:11] LABS: PTT Partial Thromboplastin Tim 30 SECONDS (26.4-36.2)
[2019-03-21 12:15] LABS: Alanine Aminotransferase 20 IU/L (9-52); Albumin 4.3 g/dL (3.5-5.0); Albumin Globulin Ratio 1.5 (1.0-2.8); Alkaline Phosphatase 56 U/L (38-126); Aspartate Aminotransferase 24 IU/L (14-36); BUN Creatinine Ratio 16.7 (6-22); Bilirubin Total 0.7 mg/dL (0.2-1.3); Blood Urea Nitrogen 10 mg/dL (7-17); Calcium 10.2 mg/dL (8.4-10.2); Carbon Dioxide 27 mmol/L (22-32); Chloride 105 mmol/L (98-107); Creatine Kinase 30 U/L (30-135); Estimated Glomerular Filt Rate > 60.0 mL/min (>60); Globulin 2.9 g/dL (1.7-4.1); Glucose 240 mg/dL (80-110); HEMOLYSIS < 15 (0-50); Lipase 92 U/L (23-300); Potassium 4.8 mmol/L (3.4-5.1); Sodium 141 mmol/L (137-145); Total Protein 7.2 g/dL (6.3-8.2)
[2019-03-21] MEDS: PANTOPRAZOLE 40 MG VIAL IV (12:16)
[2019-03-21 12:27] LABS: Troponin I < 0.012 ng/mL (0.01-0.034)
[2019-03-21 12:30] LABS: B Type Natriuretic Peptide < 100 (<100)
[2019-03-21 13:10] VITALS: BP 117/64; PULSE 76; RESP 11; O2SAT 96
[2019-03-21 15:09] VITALS: BP 128/70; PULSE 83; RESP 16; O2SAT 97
[2019-03-21 15:28] LABS: Troponin I < 0.012 ng/mL (0.01-0.034)
[2019-03-21 16:07] VITALS: BP 121/66; PULSE 73; RESP 16; O2SAT 97
--- NOTE | 2019-03-21 17:48 | ED_ITS ---
HPI - Chest Pain General Chief Complaint: Chest Pain Stated Complaint: Feels like weight on chest Time Seen by Provider: 03/21/19 11:36 Source: patient and family Mode of arrival: ambulatory Limitations: no limitations History of Present Illness HPI narrative: The patient is a 78-year-old female history of coronary artery disease presenting with what she thought was GERD. She woke up this morning with acid like reflux symptoms and some chest pressure. She actually had this yesterday as well he took nitro glycerin it did not seem to help. It stays in the center of her chest that is nonradiating nothing makes it better or worse. She denies any shortness of breath, no heart palpitations MD complaint: chest pain Duration: constant Pain radiation: none Relieving factors: nothing Exacerbating factors: nothing Related Data Home Medications Medication Instructions Recorded Confirmed lysine 500 mg PO QDAY #0 06/13/17 03/21/19 aspirin [Aspirin Childrens] 81 mg PO DAILY 03/21/19 03/21/19 fluticasone propion-salmeterol 1 inh INHALATION BID PRN 03/21/19 03/21/19 [Advair Diskus] Previous Rx's Medication Instructions Recorded calcium carbonate-vitamin D3 1 tab PO BID #180 tab 06/13/17 [Oyster Shell Calcium-Vit D3] albuterol sulfate HFA 90 2 puff INHALATION Q4-6HP PRN #3 ea 05/22/18 mcg/actuation aerosol inhaler pantoprazole 40 mg tablet,delayed 40 mg PO HS #90 tab 05/22/18 release rosuvastatin 40 mg tablet 40 mg PO HS #90 tab 05/22/18 [Test Strips] #100 each 07/09/18 acarbose 25 mg tablet 25 mg PO TID #90 tab 08/04/18 alendronate 40 mg tablet 40 mg PO QWEEK #12 tab 11/27/18 citalopram 20 mg tablet 20 mg PO QDAY #90 tab 01/29/19 glipizide ER 2.5 mg tablet, 2.5 - 5 mg PO QDAY #180 tab 01/29/19 extended release 24 hr metformin 500 mg tablet 500 mg PO TID #180 tab 01/29/19 Allergies Allergy/AdvReac Type Severity Reaction Status Date / Time doxycycline Allergy Mild BLISTERS Verified 03/21/19 11:46 Review of Systems Review of Systems GENERAL: Denies chills, fatigue, malaise, fever, sweats, travel HEENT: Denies sinus pain, ear pain, sore throat, difficulty swallowing, neck pain RESPIRATORY: Denies dyspnea, cough, wheezing, hemoptysis, sputum. CARDIOVASCULAR: See HPI GASTROINTESTINAL: Denies nausea, vomiting, abdominal pain, diarrhea, constipation, melena. : Denies dysuria, frequency, incontinence, hematuria, urinary retention, flank pain. MUSCULOSKELETAL: Denies weakness, joint pain, or bony pain SKIN: No rash, no erythema, no pruritus NEUROLOGIC: Denies weakness, dizziness, headache, numbness, change in speech, confusion PSYCHIATRIC: No concerning psychosocial issues. 12 point review of systems is negative except for those stated above and HPI [facility] Family History (Updated 07/22/18 @ 09:27 by Philly Mayo) Father Alcoholic Stroke Brother Leukemia Mother [place] (myocardial infarction) Sister Heart disease Sister Alzheimer's disease Sister No problems noted. Brother No problems noted. Family/Other Age: 56 Alcoholic Family/Other Age: 54 Hyperlipidemia Family/Other Age: 53 Hyperlipidemia Social History Smoking Status: Never smoker second hand exposure: Yes (I was for 42 years. ) alcohol intake: never substance use type: does not use Exam Initial Vital Signs Initial Vital Signs: Vital Signs Temperature 98.4 F 03/21/19 11:35 Pulse Rate 89 03/21/19 11:35 Respiratory Rate 13 03/21/19 11:35 Blood Pressure 128/99 H 03/21/19 11:35 Pulse Oximetry 97 03/21/19 11:35 GENERAL: Alert pleasant elderly female no acute distress HEENT: Head atraumatic,EOMI, pupils reactive, face symmetric, [moist] mucous membranes CARDIOVASCULAR: Regular rate and rhythm without murmurs, rubs or gallops. RESPIRATORY: Breath sounds equal bilaterally, no wheezes rales or rhonchi. ABDOMEN: Soft, nontender. Normoactive bowel sounds all 4 quadrants. No guarding or rebound. EXTREMITIES: Normal range of motion, no clubbing or edema. Neurovascularly intact NEUROLOGICAL: Alert and oriented x4.Normal gait and speech. Cranial nerves II through XII grossly intact. SKIN: Warm, dry, no laceration, no petechiae, no rashes or lesions. Course Orders Ordered: ED Orders 03/21/19 11:43 XR chest 1V Stat EKG-12 Lead Stat 03/21/19 11:50 B Type Natriuretic Peptide Stat Complete Blood Count AUTO DIFF Stat Comprehensive Metabolic Panel Stat Lipase Stat Partial Thromboplastin Time Stat Prothrombin Time INR Stat Troponin & CK Cardiac Panel Stat 03/21/19 14:31 EKG-12 Lead Stat 03/21/19 14:55 Troponin I Stat Discontinued Medications Aspirin (Aspirin Chew) 324 mg PO NOW ONE Stop: 03/21/19 11:44 Last Admin: 03/21/19 11:44 Dose: 324 mg Sodium Chloride (Normal Saline 0.9%) 1,000 mls @ 150 mls/hr IV CONT TERRIE Last Infusion: 03/21/19 16:22 Dose: 0 mls/hr Admin: 03/21/19 11:45 Dose: 150 mls/hr Nitroglycerin (Nitrostat) 0.4 mg SL NOW ONE Stop: 03/21/19 11:44 Last Admin: 03/21/19 11:45 Dose: 0.4 mg Nitroglycerin (Nitrostat) 0.4 mg SL [id number] PRN PRN Reason: Chest Pain Pantoprazole Sodium (Protonix) 40 mg IV NOW ONE Stop: 03/21/19 12:06 Last Admin: 03/21/19 12:16 Dose: 40 mg Vital Signs - 8 hr 03/21/19 11:35 03/21/19 11:45 03/21/19 12:06 Temperature 98.4 F Pulse Rate 89 82 88 Respiratory Rate 13 11 L Blood Pressure 128/99 H 135/102 H 123/66 Blood Pressure [Left Arm] 123/66 Pulse Oximetry 97 97 03/21/19 13:10 03/21/19 15:09 03/21/19 16:07 Temperature Pulse Rate 76 83 73 Respiratory Rate 11 L 16 16 Blood Pressure Blood Pressure [Left Arm] 117/64 128/70 121/66 Pulse Oximetry 96 97 97 MDM - Chest Pain Lab Data Attestation: I reviewed the patient's lab results. Result diagrams: 03/21/19 11:50 03/21/19 11:50 Lab Results 03/21/19 03/21/19 03/21/19 Range/Units 11:50 11:50 11:50 WBC 5.5 (4.5-11.0) X10^3/uL RBC 4.82 (4.0-5.2) X10^6/uL Hgb 13.7 (12.0-16.0) g/dL Hct 41.4 (36-46) % MCV 85.8 (80-100) fL MCH 28.4 (26-34) PG MCHC 33.1 (30-36) % RDW 15.2 H (11.6-14.8) % Plt Count 185 (150-400) X10^3/uL Neut % (Auto) 47.3 L (50-75) % Lymph % (Auto) 22.8 L (25-40) % [place] % (Auto) 7.1 (3-14) % Eos % (Auto) 20.5 H (2-4) % Baso % (Auto) 2.3 H (0-2) % Neut # (Auto) 2600 (6976-2025) /uL Lymph # (Auto) 1300 (2192-4258) /uL [place] # (Auto) 400 (0-900) /uL Eos # (Auto) 1100 H (0-450) /uL Baso # (Auto) 100 (0-100) /uL PT 11.4 (10.1-12.7) SECONDS INR 1.0 (0.9-1.3) APTT 30 (26.4-36.2) SECONDS Sodium 141 (137-145) mmol/L Potassium 4.8 (3.4-5.1) mmol/L Chloride 105 (98-107) mmol/L Carbon Dioxide 27 (22-32) mmol/L BUN 10 (7-17) mg/dL Creatinine 0.60 (0.52-1.04) mg/dL Estimated GFR > 60.0 (>60) mL/min BUN/Creatinine Ratio 16.7 (6-22) Glucose 240 H (80-110) mg/dL Calcium 10.2 (8.4-10.2) mg/dL Total Bilirubin 0.7 (0.2-1.3) mg/dL AST 24 (14-36) IU/L ALT 20 (9-52) IU/L Alkaline Phosphatase 56 (38-126) U/L Total Creatine Kinase 30 (30-135) U/L CK-MB (CK-2) TNP CK-MB (CK-2) Rel Index TNP Troponin I < 0.012 (0.01-0.034) ng/mL B-Natriuretic Peptide < 100 (<100) Total Protein 7.2 (6.3-8.2) g/dL Albumin 4.3 (3.5-5.0) g/dL Globulin 2.9 (1.7-4.1) g/dL Albumin/Globulin Ratio 1.5 (1.0-2.8) Lipase 92 (23-300) U/L 03/21/19 Range/Units 14:55 WBC (4.5-11.0) X10^3/uL RBC (4.0-5.2) X10^6/uL Hgb (12.0-16.0) g/dL Hct (36-46) % MCV (80-100) fL MCH (26-34) PG MCHC (30-36) % RDW (11.6-14.8) % Plt Count (150-400) X10^3/uL Neut % (Auto) (50-75) % Lymph % (Auto) (25-40) % [place] % (Auto) (3-14) % Eos % (Auto) (2-4) % Baso % (Auto) (0-2) % Neut # (Auto) (1826-4358) /uL Lymph # (Auto) (4060-2303) /uL [place] # (Auto) (0-900) /uL Eos # (Auto) (0-450) /uL Baso # (Auto) (0-100) /uL PT (10.1-12.7) SECONDS INR (0.9-1.3) APTT (26.4-36.2) SECONDS Sodium (137-145) mmol/L Potassium (3.4-5.1) mmol/L Chloride (98-107) mmol/L Carbon Dioxide (22-32) mmol/L BUN (7-17) mg/dL Creatinine (0.52-1.04) mg/dL Estimated GFR (>60) mL/min BUN/Creatinine Ratio (6-22) Glucose (80-110) mg/dL Calcium (8.4-10.2) mg/dL Total Bilirubin (0.2-1.3) mg/dL AST (14-36) IU/L ALT (9-52) IU/L Alkaline Phosphatase (38-126) U/L Total Creatine Kinase (30-135) U/L CK-MB (CK-2) CK-MB (CK-2) Rel Index Troponin I < 0.012 (0.01-0.034) ng/mL B-Natriuretic Peptide (<100) Total Protein (6.3-8.2) g/dL Albumin (3.5-5.0) g/dL Globulin (1.7-4.1) g/dL Albumin/Globulin Ratio (1.0-2.8) Lipase (23-300) U/L Imaging Data Chest x-ray: Radiologist's impression: PROCEDURE: XR CHEST 1V INDICATIONS: chest pain TECHNIQUE: One view of the chest was acquired. COMPARISON: [facility], CHEST 1 VIEW, 07/03/2016, 2:15. [facility], CHEST 2 VIEW, 06/12/2016, 14:34. FINDINGS: Surgical changes and devices: None. Lungs and pleura: Lungs are clear. No pleural effusions or pneumothorax. Mediastinum: Mediastinal contours appear normal. Heart size is normal. Bones and chest wall: No suspicious bony lesions. Overlying soft tissues appear unremarkable. IMPRESSION: No acute process. Dictated by: Leslee Alejandro M.D. on 03/21/2019 at 11:39 ECG Data Attestation: I personally reviewed and interpreted this ECG as follows: Prior ECG tracings: available for review Interpretation: EKG 1.: Normal sinus rhythm rate 80 low voltage noted in lead [address] changes no T-wave inversion from previous EKG no ST elevations or depressions [place] interval 186 EKG 2. Normal sinus rhythm rate 89 similar to prior no changes EKG 3. Normal sinus rhythm rate [address] changes or other prior EKG MDM Narrative Medical decision making narrative: Patient has have to 3 hour troponins which are negative. She is chest pain-free. And no EKG changes I discussed with her that she still needs a stress test. Her PCP can arrange this for her. I discussed with her and her if she should have any new or worsening chest discomfort she needs return to the ER immediately and can even call 911. She agrees. She overall is feeling much better. Patient had no change with nitroglycerin. Discharge Plan Departure Patient Disposition: Home Clinical Impression: Atypical chest pain Discharge Date/Time: 03/21/19 16:23 Interventions: ED Discharge Assessment Last Done: 03/21/19 16:22 Instructions: DI for Atypical Chest Pain Activity Restrictions/Additional Instructions: *You have been diagnosed with atypical chest *What to do: You still need a stress test. Please talk to your primary for scheduling *Continue to take medications as directed *Follow up with your primary care provider in 2-3 days *Return to ER if you should have increasing chest pain, shortness of breath or any new, worsening or concerning symptoms Prescriptions: No Action alendronate 40 mg tablet 40 mg PO QWEEK Qty: 12 RF: 3 lysine 500 MG tablet 500 mg PO QDAY Qty: 0 RF: 0 calcium carbonate-vitamin D3 [Oyster Shell Calcium-Vit D3] 500 MG/200 IU tablet 1 tab PO BID Qty: 180 RF: 3 pantoprazole 40 mg tablet,delayed release (DR/EC) 40 mg PO HS Qty: 90 RF: 3 rosuvastatin 40 mg tablet 40 mg PO HS Qty: 90 RF: 3 albuterol sulfate [Ventolin HFA] 90 mcg/actuation HFA aerosol inhaler 2 puff INHALATION Q4-6HP PRN (Reason: shortness of breath) Qty: 3 RF: 3 [Test Strips] .Route .MEDSUPPLY Qty: 100 RF: 0 acarbose 25 mg tablet 25 mg PO TID Qty: 90 RF: 3 glipizide [Glucotrol XL] 2.5 mg tablet extended release 24hr 2.5 - 5 mg PO QDAY Qty: 180 RF: 3 metformin [Glucophage] 500 mg tablet 500 mg PO TID Qty: 180 RF: 3 citalopram [Celexa] 20 mg tablet 20 mg PO QDAY Qty: 90 RF: 3 aspirin [Aspirin Childrens] 81 mg Tablet,Chewable 81 mg PO DAILY RF: 0 fluticasone propion-salmeterol [Advair Diskus] 250-50 mcg/dose Blister With Device 1 inh INHALATION BID PRN (Reason: allergies) RF: 0 Referrals: Florinda Goins PA-C [Primary Care Provider] -
== END 2019-03-21 16:23 | disposition home or self-care (01) ==
PROVIDERS: Emergency Provider Emergency Medicine; PCP Physician Assistant
DX: R07.89 Other chest pain (principal)
CPT/HCPCS: 36415; 36591; 71045; 80053; 82550; 83690; 83880; 84484; 85025; 85610; 85730; 93005; 93010; 99283; C9113

== ENCOUNTER → 2019-03-26 10:22 | Outpatient (CLI) | payer MEDICARE, OTHER, SELFPAY ==
--- NOTE | 2019-03-26 10:25 | DI.RAD.S_ITS ---
PROCEDURE: FL BARIUM SWALLOW INDICATIONS: GERD History of Lap Tyler for GERD in 2000 COMPARISON: [facility], RF, UPPER GI AIR CONTRAST WITH KUB, 01/21/2009, 13:09. [facility], CR, XR CHEST 1V, 03/21/2019, 12:17. [facility], US, US CAROTID DOPPLER BI, 03/26/2019, 11:16. FINDINGS: Function: There is moderate esophageal dysmotility with disorganized tertiary contractions. Severe gastroesophageal reflux was elicited on examination. There is obstruction of a calibrated barium tablet at the gastroesophageal junction. The barium tablet eventually went through the GE junction with additional water at the end of the exam. Morphology: Air-contrast images demonstrate normal mucosal morphology. There is mild narrowing at the gastroesophageal junction which could be secondary to postsurgical change. A small hiatal hernia is noted. No extrinsic mass effects or diverticula. Limited images of the stomach demonstrate normal appearance. IMPRESSION: 1. There is mild narrowing of the gastroesophageal junction with brief obstruction of the pelvic barium tablet. This finding could be secondary to postsurgical change or focal stricture. Upper endoscopy may be obtained for further evaluation if clinically indicated. 2. Moderate gastroesophageal dysmotility. 3. Severe gastroesophageal reflux. 4. Small hiatal hernia. Dictated by: Daniel Redman M.D. on 03/26/2019 at 14:12 Approved by: Daniel Redman M.D. on 03/26/2019 at 14:19
--- NOTE | 2019-03-26 10:25 | DI.US.S_ITS ---
PROCEDURE: US CAROTID DOPPLER BI INDICATIONS: HISTORY OF MILD CAROTID STENOSIS; CAD; DM TECHNIQUE: Color and pulse Doppler interrogation was performed of both carotid systems, with image documentation and velocity measurements. COMPARISON: [facility], , CAROTID ARTERY DOPPLER BILAT, 11/22/2017, 9:18. FINDINGS: Stenosis calculations are based on SRU (Society of Radiologists in Ultrasound) criteria. Right side: Brachial blood pressure: 135/84 mm Hg. Common carotid artery peak systolic velocity: 96 cm/sec. Internal carotid artery peak systolic velocity: 98 cm/sec. Internal carotid artery end diastolic velocity: 31 cm/sec. External carotid artery peak systolic velocity: 132 cm/sec. ICA/CCA peak systolic ratio: 1.0. Alexander scale imaging description: Mild scattered plaque in Percent internal carotid artery stenosis: Less than 50%. Vertebral artery: Flow direction is antegrade. Left side: Brachial blood pressure: 137/83 mm Hg. Common carotid artery peak systolic velocity: 75 cm/sec. Internal carotid artery peak systolic velocity: 119 cm/sec. Internal carotid artery end diastolic velocity: 29 cm/sec. External carotid artery peak systolic velocity: 325 cm/sec. ICA/CCA peak systolic ratio: 1.6. Alexander scale imaging description: Heavy scattered plaque. Percent internal carotid artery stenosis: Less than 50%. Vertebral artery: Flow direction is antegrade. IMPRESSION: Stable less than 50% bilateral internal carotid artery stenosis. Dictated by: Mario BHAT Interpreted: Anand Gomez MD on 03/26/2019 at 12:58 Approved by: Anand Gomez M.D. on 03/26/2019 at 17:01
== END ==
PROVIDERS: PCP Physician Assistant; Visit Provider Physician Assistant
DX: I65.23 Occlusion and stenosis of bilateral carotid arteries (principal); K21.9 Gastro-esophageal reflux disease without esophagitis; K22.4 Dyskinesia of esophagus; K44.9 Diaphragmatic hernia without obstruction or gangrene; I25.10 Atherosclerotic heart disease of native coronary artery without angina pectoris; E11.9 Type 2 diabetes mellitus without complications; I10 Essential (primary) hypertension
CPT/HCPCS: 74220; 93880

== ENCOUNTER 2019-04-27 10:26 | Day surgery (SDC) | payer MEDICARE, OTHER, SELFPAY ==
[2019-04-27] VITALS (9 sets, daily range): BP systolic 103–127; BP diastolic 56–82; PULSE 16–85; RESP 12–77; TEMP 35.9–36.4; O2SAT 92–96; BMI 22.3
--- NOTE | 2019-04-27 | PATH_ITS ---
[facility] Accession Number: [id number] . 01 Material submitted: . PART A: gastrointestinal site - RANDOM GASTRIC BIOPSIES PART B: gastrointestinal site - GASTRIC FUNDAL POLYP . 01 Clinical history: . EGD A. EVALUATE FOR H. PYLORI AND GASTRITIS . 02 Diagnosis: A. Random Stomach, Biopsies: Gastric antral and body mucosa with minimal chronic gastritis. No evidence of Helicobacter organisms on H/E stain. Negative for intestinal metaplasia, dysplasia or malignancy. . B. Gastric Fundus, Polyp: Features of hyperplastic gastric polyp. No evidence of Helicobacter organisms on H/E stain. Negative for intestinal metaplasia, dysplasia or malignancy. Additional step sections examined. [facility]/04/28/2019 . 02 Electronically signed: . Tyrone Grimes MD, PhD, Pathologist NPI- [id number] . 01 Gross description: . Part A: RANDOM GASTRIC BIOPSIES: Received in formalin are multiple fragment(s) of urrutia, soft tissue measuring 0.1 x 0.1 x 0.1 cm to 0.4 x 0.1 x 0.1 cm which is entirely submitted and submitted entirely in 1 cassette(s) Part B: GASTRIC FUNDAL POLYP: Received in formalin are 3 fragment(s) of urrutia, soft tissue measuring 0.1 x 0.1 x 0.1 cm to 0.2 x 0.2 x 0.1 cm which is entirely submitted and submitted entirely in 1 cassette(s) /DMC /D[facility] . 02 Pathologist provided ICD-10: K29.70, K31.7 . 02 CPT . 794616, 818067 Performed at: 01 [facility] [address] [place] [address] [address], [place], [place] [id number] MD Doug Royal MD Phone: [phone] Performed at: 02 [facility] [place] [address] [place] [id number] MD Khloe Zelaya MD Phone: [phone]
[2019-04-27] MEDS: SODIUM CHLORIDE 0.9% 1,000 ML 200 ML IV (11:30)
--- NOTE | 2019-04-27 11:50 | PM.HP.1 ---
History of Present Illness Date Patient Seen: 04/27/19 Time Patient Seen: 11:40 Chief complaint: 22701 EGD Narrative: Patient seen and examined Relatively unchanged since recent clinic visit Does report an episode dry heaves and felt shifting in epigastrium. Has noted less reflux symptoms since this time Patient History Family & Social History Family History (Updated 04/14/19 @ 10:13 by Myah Wells RN) Father Alcoholic Stroke Hypertension Brother Leukemia Mother [place] (myocardial infarction) Heart disease Sister Heart disease Sister Alzheimer's disease Sister No problems noted. Brother No problems noted. Family/Other Age: 56 Alcoholic Family/Other Age: 54 Hyperlipidemia Family/Other Age: 53 Hyperlipidemia Social History: household members spouse Tobacco & Substance use: Smoking Status Never smoker alcohol intake never Substance Use Type does not use Meds Home Medications Medication Instructions Recorded Confirmed Type calcium carbonate-vitamin D3 1 tab PO BID #180 tab 06/13/17 04/27/19 Rx [Oyster Shell Calcium-Vit D3] lysine 500 mg PO QDAY #0 06/13/17 04/27/19 History albuterol sulfate HFA 90 2 puff INHALATION Q4-6HP PRN #3 ea 05/22/18 04/27/19 Rx mcg/actuation aerosol inhaler [Test Strips] #100 each 07/09/18 04/14/19 Rx acarbose 25 mg tablet 25 mg PO TID #90 tab 08/04/18 04/27/19 Rx alendronate 40 mg tablet 40 mg PO QWEEK #12 tab 11/27/18 04/27/19 Rx citalopram 20 mg tablet 20 mg PO QDAY #90 tab 01/29/19 04/27/19 Rx glipizide ER 2.5 mg tablet, 2.5 - 5 mg PO QDAY #180 tab 01/29/19 04/27/19 Rx extended release 24 hr metformin 500 mg tablet 500 mg PO TID #180 tab 01/29/19 04/27/19 Rx aspirin [Aspirin Childrens] 81 mg PO DAILY 03/21/19 04/27/19 History fluticasone propion-salmeterol 1 inh INHALATION BID PRN 03/21/19 04/27/19 History [Advair Diskus] pantoprazole 40 mg tablet,delayed 40 mg PO HS #90 tab 03/23/19 04/27/19 Rx release rosuvastatin 40 mg tablet 40 mg PO HS #90 tab 04/06/19 04/27/19 Rx sucralfate 100 mg/mL oral 2 gram PO BID #420 ml 04/06/19 04/27/19 Rx suspension ezetimibe [Zetia] 10 mg PO DAILY 04/27/19 04/27/19 History Allergies Allergy/AdvReac Type Severity Reaction Status Date / Time doxycycline Allergy Mild BLISTERS Verified 04/27/19 11:08 Exam Vital Signs (past 8 hours): - 04/27/19 10:50 Temperature 97.3 F L Pulse Rate 16 L Respiratory Rate 77 H Blood Pressure 127/82 Pulse Oximetry 96 Oxygen Delivery Method Room Air
[2019-04-27] MEDS: MIDAZOLAM 5 MG/5 ML VIAL IV (11:51)
[2019-04-27] MEDS: LIDOCAINE 4% SOLN 50 ML 20 ML TOP (11:51)
[2019-04-27] MEDS: TETRACAINE/BENZOCAINE/BUTAMBEN (CETACAINE) BOTTLE 1 SPRAY TOP ×2 (11:52→11:55)
[2019-04-27] MEDS: fentaNYL 250 MCG/5 ML INJ IV (11:56)
--- NOTE | 2019-04-27 12:19 | PM.OP.ENDO ---
Operative Date/Time/Diagnoses Date of procedure: 04/27/19 Time of procedure: 12:20 Pre-op diagnosis: Recurrent reflux after Tyler fundoplication Post-op diagnosis: same Procedure & Clinicians Study performed: EGD, gastric biopsies Same procedure as scheduled: Yes Indications: 78-year-old woman with Tyler fundoplication performed laparoscopically over a decade ago, presented to clinic with new onset of GERD symptoms fairly severe Surgeon: Uriel Spicer Procedure Notes SCOAP/Timeout: completed Procedure in detail: Patient was taken to the endoscopy suite, time-out was completed. For the entire course of the procedure a total of 50 mcg of fentanyl and 2 mg of midazolam were given. The gastroscope was then introduced through the oropharynx the epiglottis was readily identified and was passed posterior to this intubating the pharyngeal esophagus readily. The scope was then easily advanced down the remainder of the esophagus into the stomach. The stomach rugae appeared generally healthy there was some punctate areas of erythema these were biopsied. The pylorus a pill to healthy there were no gastric ulcers or pyloric ulcers. The scope was easily passed through the pylorus into the 1st portion of the duodenum which appeared to be normal with healthy mucosa and jeffery. The scope was then withdrawn to the stomach and retroflexed to look at the anti-reflux mechanism The valve was quite patulous and had obviously broken down The lip appears thick of approximately 2 cm in length from the prior Tyler fundoplication The anterior groove was completely absent the posterior groove was deep but relatively wide The lesser curvature was also wide The GE junction itself was opened with a patulous flap-type valve. I was able to with the retroflexed endoscope, up through the open valve mechanism and visualize the GE junction. The diaphragmatic hiatus was fairly close to the wrap with the GE junction more distal to this. The Z-line was measured at 35 cm from the incisors, the fundal wrap was at 37 cm from the incisors, The scope was withdrawn into the distal esophagus -from this vantage point the anti reflux mechanism/GE junction was opened during all phases of the respiratory cycle Evaluating the data as a whole it appeared that the wrap had slipped down onto the stomach body and the wrap/superior stomach body was partially herniated into the chest Scope withdrawal time: Na Sedation minutes: 21 Findings: polyp Specimen(s): other (Random gastric biopsies evaluate for H pylori, fundic polyp) Complications: none Impression: Slipped Tyler fundoplication -with portion of the wrap in chest Open GE junction/valve Fundic polyp status post biopsy Plan for aftercare: Follow up in clinic for discussion of results Follow up: weeks Disposition: PACU
--- NOTE | 2019-04-27 12:24 | SUR.PHASEI ---
Eyes open spontaneously, appropriate responses to voice. Skin warm and dry, resp unlabored, declines ice chips & returned to sleep.
--- NOTE | 2019-04-27 12:29 | P.OP.ENDO_ITS ---
Operative Date/Time/Diagnoses Date of procedure: 04/27/19 Time of procedure: 12:20 Pre-op diagnosis: Recurrent reflux after Tyler fundoplication Post-op diagnosis: same Procedure & Clinicians Study performed: EGD, gastric biopsies Same procedure as scheduled: Yes Indications: 78-year-old woman with Tyler fundoplication performed laparoscop ically over a decade ago, presented to clinic with new onset of GERD symptoms fairly severe Surgeon: Uriel Spicer Procedure Notes SCOAP/Timeout: completed Procedure in detail: Patient was taken to the endoscopy suite, time-out was completed. For the entire course of the procedure a total of 50 mcg of fentanyl and 2 mg of midazolam were given. The gastroscope was then introduced through the oropharynx the epiglottis was readily identified and was passed posterior to this intubating the pharyngeal esophagus readily. The scope was then easily advanced down the remainder of the esophagus into the stomach. The stomach rugae appeared generally healthy there was some punctate areas of erythema these were biopsied. The pylorus a pill to healthy there were no gastric ulcers or pyloric ulcers. The scope was easily passed through the pylorus into the 1st portion of the duodenum which appeared to be normal with healthy mucosa and jeffery. The scope was then withdrawn to the stomach and retroflexed to look at the anti- reflux mechanism The valve was quite patulous and had obviously broken down The lip appears thick of approximately 2 cm in length from the prior Tyler fundoplication The anterior groove was completely absent the posterior groove was deep but rel atively wide The lesser curvature was also wide The GE junction itself was opened with a patulous flap-type valve. I was able to with the retroflexed endoscope, up through the open valve mechanism and visualize the GE junction. The diaphragmatic hiatus was fairly close to the wrap with the GE junction more distal to this. The Z-line was measured at 35 cm from the incisors, the fundal wrap was at 37 cm from the incisors, The scope was withdrawn into the distal esophagus -from this vantage point the anti reflux mechanism/GE junction was opened during all phases of the respiratory cycle Evaluating the data as a whole it appeared that the wrap had slipped down onto the stomach body and the wrap/superior stomach body was partially herniated into the chest Scope withdrawal time: Na Sedation minutes: 21 Findings: polyp Specimen(s): other (Random gastric biopsies evaluate for H pylori, fundic polyp) Complications: none Impression: Slipped Tyler fundoplication -with portion of the wrap in chest Open GE junction/valve Fundic polyp status post biopsy Plan for aftercare: Follow up in clinic for discussion of results Follow up: weeks Disposition: PACU
--- NOTE | 2019-04-27 12:54 | SUR.PHASEI ---
1241 Report given to RN, patient to OPD, awake, drowsy, stable.
== END 2019-04-27 13:30 | disposition home or self-care (01) ==
PROVIDERS: PCP Physician Assistant; Visit Provider Surgery
PROC: 0DJ08ZZ Inspection of Upper Intestinal Tract, Via Natural or Artificial Opening Endoscopic (ICD-10-PCS; CPT 43235; principal; 2019-04-27 11:45)
DX: K21.9 Gastro-esophageal reflux disease without esophagitis (principal); K29.70 Gastritis, unspecified, without bleeding; Z98.890 Other specified postprocedural states; K31.7 Polyp of stomach and duodenum
CPT/HCPCS: 43239; 88305; 99152; J2250; J3010

== ENCOUNTER → 2019-05-13 09:09 | Outpatient (CLI) | payer MEDICARE, OTHER, SELFPAY ==
--- NOTE | 2019-05-13 09:12 | DI.NM.S_ITS ---
PROCEDURE: NM GASTRIC EMPTYING STUDY RADIOPHARMACEUTICAL: 1.0 mCi Tc-99m sulfur colloid in an egg sandwich. INDICATIONS: diabetic gastroparesis? TECHNIQUE: A Tc-99m labeled sulfur colloid labeled egg sandwich or oatmeal was served to the patient. Anterior and posterior planar images of the abdomen were obtained at 0 minutes and 30 minutes, then at hourly intervals up to 4 hours. The patient was upright and ambulating during the interval. COMPARISON: None. FINDINGS: The stomach has normal size, morphology, and position. There is normal emptying of solid gastric contents from the stomach by visual inspection. No gastroesophageal reflux is visualized. The percentage of tracer retained at specific time points are as follows: Time point Percent gastric retention Normal range 30 minutes 83% 70% or more 1 hour 75% 30% to 90% 2 hours 41% 60% or less 3 hours 7% 30% or less IMPRESSION: Normal gastric emptying study. Dictated by: Antonio Avalos M.D. on 05/13/2019 at 14:28 Approved by: Antonio Avalos M.D. on 05/13/2019 at 14:29
== END ==
PROVIDERS: PCP Physician Assistant; Visit Provider Surgery
DX: K21.9 Gastro-esophageal reflux disease without esophagitis (principal)
CPT/HCPCS: 78264; A9541

== ENCOUNTER → 2019-06-05 08:31 | Outpatient (CLI) | payer MEDICARE, OTHER, SELFPAY | PROVIDERS: PCP Physician Assistant; Visit Provider Surgery | DX: K30 Functional dyspepsia (principal) | CPT/HCPCS: 86677 ==

== ENCOUNTER → 2019-07-13 09:52 | Outpatient (CLI) | payer MEDICARE, OTHER, SELFPAY | PROVIDERS: PCP Physician Assistant; Visit Provider Physician Assistant | DX: E11.65 Type 2 diabetes mellitus with hyperglycemia (principal) | CPT/HCPCS: 36415; 83036 ==

== ENCOUNTER 2019-11-23 09:29 | Day surgery (SDC) | payer MEDICARE, OTHER, SELFPAY ==
[2019-11-23] VITALS (7 sets, daily range): BP systolic 99–136; BP diastolic 59–74; PULSE 70–78; RESP 11–16; TEMP 35.7–36.3; O2SAT 95–99; BMI 23.4
[2019-11-23] MEDS: SODIUM CHLORIDE 0.9% 1,000 ML 200 ML IV (10:09)
--- NOTE | 2019-11-23 11:04 | PM.HP.1 ---
History of Present Illness History of Present Illness Date Patient Seen: 11/23/19 Time Patient Seen: 11:05 Chief complaint: [address] EGD Narrative: 79-year-old woman with a history of gastroesophageal reflux disease and I hyperplastic gastric polyp resected on EGD 6 months ago. She is here for a repeat EGD. Minimal gastroesophageal reflux disease. Her only symptom is belching but otherwise she has no dysphagia dyspepsia. She is not on anticoagulation. Patient History Family & Social History Family History (Updated 04/14/19 @ 10:13 by Myah Wells RN) Father Alcoholic Stroke Hypertension Brother Leukemia Mother [place] (myocardial infarction) Heart disease Sister Heart disease Sister Alzheimer's disease Sister No problems noted. Brother No problems noted. Family/Other Age: 57 Alcoholic Family/Other Age: 55 Hyperlipidemia Family/Other Age: 54 Hyperlipidemia Social History: household members spouse Tobacco & Substance use: Smoking Status Never smoker alcohol intake never Substance Use Type does not use Meds Home Medications and Allergies Home Medications Medication Instructions Recorded Confirmed Type calcium carbonate-vitamin D3 1 tab PO BID #180 tab 06/13/17 11/23/19 Rx [Oyster Shell Calcium-Vit D3] lysine 500 mg PO QDAY #0 06/13/17 11/23/19 History albuterol sulfate 90 mcg/actuation 2 puff INHALATION Q4-6HP PRN #3 ea 05/22/18 11/23/19 Rx aerosol inhaler [Test Strips] #100 each 07/09/18 08/12/19 Rx alendronate 40 mg tablet 40 mg PO QWEEK #12 tab 11/27/18 11/23/19 Rx citalopram 20 mg tablet 20 mg PO QDAY #90 tab 01/29/19 11/23/19 Rx glipizide 2.5 mg tablet, extended 2.5 - 5 mg PO QDAY #180 tab 01/29/19 11/23/19 Rx release 24 hr metformin 500 mg tablet 500 mg PO TID #180 tab 01/29/19 11/23/19 Rx pantoprazole 40 mg tablet,delayed 40 mg PO HS #90 tab 03/23/19 11/23/19 Rx release rosuvastatin 40 mg tablet 40 mg PO HS #90 tab 04/06/19 11/23/19 Rx ezetimibe [Zetia] 10 mg PO DAILY 04/27/19 11/23/19 History aspirin 81 mg tablet,delayed 81 mg PO DAILY 08/12/19 11/23/19 History release fluticasone 250 mcg-salmeterol 50 1 inh INHALATION BID PRN #180 each 08/12/19 11/23/19 Rx mcg/dose blistr powdr for inhalation Allergies Allergy/AdvReac Type Severity Reaction Status Date / Time doxycycline Allergy Mild BLISTERS Verified 11/23/19 09:53 acarbose AdvReac Severe gas; Verified 11/23/19 09:53 belching sucralfate AdvReac Severe Nausea Verified 11/23/19 09:53 Review of Systems Review of Systems Narrative: A 10 point review of systems is negative except as noted in the HPI Exam Vital Signs (past 8 hours): - 11/23/19 09:59 Temperature 96.2 F L Pulse Rate 77 Respiratory Rate 16 Blood Pressure 136/74 Pulse Oximetry 97 Oxygen Delivery Method Room Air Narrative Exam Narrative: General-no acute distress, well nourished HEENT-moist mucous membranes, no scleral icterus Neck-supple, no lymphadenopathy Chest- non labored respirations, clear to auscultation bilaterally Cardiac-regular rate no peripheral edema Abdomen-soft, nontender, non distended Extremities-warm, well perfused Neurological-alert and oriented, no focal deficits Assessment & Plan Assessment and plan (1) Gastric polyp: Current visit: Yes Status: Acute Assessment & Plan narrative: 79-year-old female with a history of hyperplastic polyp and on pantoprazole for gastroesophageal reflux disease. Polyp was resected 6 months ago she is here for surveillance EGD. Discussed the technical nature of the procedure including its risks of bleeding infection perforation need for further procedure operation. Questions were answered she is in agreement with this plan
[2019-11-23] MEDS: LIDOCAINE 4% SOLN 50 ML 20 ML TOP (11:10)
[2019-11-23] MEDS: fentaNYL 250 MCG/5 ML INJ IV (11:11)
[2019-11-23] MEDS: MIDAZOLAM 5 MG/ML VIAL 4 MG IV (11:11)
--- NOTE | 2019-11-23 11:12 | PM.OP.ENDO ---
Operative Date/Time/Diagnoses Date of procedure: 11/23/19 Time of procedure: 11:12 Pre-op diagnosis: Gastric polyp Post-op diagnosis: same Procedure & Clinicians Study performed: Esophagoduodenoscopy Same procedure as scheduled: Yes Indications: History of gastric polyp Surgeon: Donell Srinivasan Procedure Notes SCOAP/Timeout: Performed Procedure in detail: Patient placed in left lateral decubitus position. Time out was performed. Procedural sedation was administered with Versed and Fentanyl. A bite block was placed. the scope was inserted into the mouth and advanced through the esophagus and into the stomach. The pylorus was intubated and the duodenum was normal. The scope was retroflexed within the stomach and there was a hiatal hernia, there were no gastric polyps. No ulcers, or gastritis. The scope was withdrawn into the esophagus the Z line was seen at 35 cm from the incisions. There was no mart's esophagitis or masses or strictures. Stomach was desufflated and scope removed. Patient tolerated procedure well. Sedation minutes: 4 Findings: hiatal hernia Complications: none Impression: Hiatal hernia Post-procedure Recommendations: Reflux diet Disposition: same day surgery
== END 2019-11-23 12:18 | disposition home or self-care (01) ==
PROVIDERS: Referring Provider Surgery; Visit Provider Surgery
PROC: 0DJ08ZZ Inspection of Upper Intestinal Tract, Via Natural or Artificial Opening Endoscopic (ICD-10-PCS; CPT 43235; principal; 2019-11-23 10:45)
DX: K31.7 Polyp of stomach and duodenum (principal); K44.9 Diaphragmatic hernia without obstruction or gangrene
CPT/HCPCS: 43235; J2250; J3010

== ENCOUNTER → 2020-05-02 10:08 | Outpatient (CLI) | payer MEDICARE, OTHER, SELFPAY ==
[2020-05-02 11:02] LABS: Add Manual Diff / Slide Review NO; Basophils Absolute Auto 100 /uL (0-100); Basophils Percent Auto 0.9 % (0-2); Eosinophils Absolute Auto 600 /uL (0-450); Eosinophils Percent Auto 11.2 % (2-4); Hematocrit 40.4 % (36-46); Hemoglobin 13.4 g/dL (12.0-16.0); Lymphocytes Absolute Auto 1700 /uL (1100-4500); Lymphocytes Percent Auto 29.1 % (25-40); Mean Corpuscular HGB Conc 33.2 % (30-36); Mean Corpuscular Hemoglobin 28.1 PG (26-34); Mean Corpuscular Volume 84.7 fL (80-100); Monocytes Absolute Auto 400 /uL (0-900); Monocytes Percent Auto 7.6 % (3-14); Neutrophils Absolute Auto 2900 /uL (1500-7000); Neutrophils Percent Auto 51.2 % (50-75); Platelet Count 191 X10^3/uL (150-400); Red Blood Cell Count 4.77 X10^6/uL (4.0-5.2); Red Cell Distribution Width 14.2 % (11.6-14.8); White Blood Cell Count 5.7 X10^3/uL (4.5-11.0)
[2020-05-02 11:16] LABS: Alanine Aminotransferase 19 IU/L (<35); Albumin 4.2 g/dL (3.5-5.0); Albumin Globulin Ratio 1.4 (1.0-2.8); Alkaline Phosphatase 104 U/L (38-126); Aspartate Aminotransferase 27 IU/L (14-36); BUN Creatinine Ratio 21.1 (6-22); Bilirubin Total 0.8 mg/dL (0.2-1.3); Blood Urea Nitrogen 16 mg/dL (7-17); Calcium 10.2 mg/dL (8.4-10.2); Carbon Dioxide 25 mmol/L (22-32); Chloride 106 mmol/L (98-107); Cholesterol 171 mg/dL (140-199); Estimated Glomerular Filt Rate > 60.0 mL/min (>60); Globulin 2.9 g/dL (1.7-4.1); Glucose 231 mg/dL (80-110); HDL Cholesterol 57 mg/dL (40-60); HEMOLYSIS < 15 (0-50); LDL Cholesterol Calculated 91 mg/dL (<100); Potassium 4.6 mmol/L (3.4-5.1); Sodium 139 mmol/L (137-145); Total Protein 7.1 g/dL (6.3-8.2); Triglycerides 116 mg/dL (35-150)
[2020-05-02 11:44] LABS: Hemoglobin A1C% w Est Avg Glu 10.3 % (4.0-6.0)
[2020-05-02 12:06] LABS: Vitamin D 25 Hydroxy (D3) 30.9 ng/mL (30.0-100.0)
[2020-05-02 20:50] LABS: Creatinine Urine Random 84.5 mg/dL
[2020-05-02 20:55] LABS: Microalbumi Creatinin Ratio Ur 28.4 ug/mg CR (<30); Microalbumin Urine Random 2.4 mg/dL (0-1.6)
== END ==
PROVIDERS: Referring Provider Internal Medicine; Visit Provider Internal Medicine
DX: M81.0 Age-related osteoporosis without current pathological fracture (principal); E11.9 Type 2 diabetes mellitus without complications; F32.1 Major depressive disorder, single episode, moderate
CPT/HCPCS: 80053; 80061; 82043; 82306; 82570; 83036; 84443; 85025

== ENCOUNTER → 2020-05-18 09:05 | Outpatient (CLI) | payer MEDICARE, OTHER, SELFPAY ==
[2020-05-19 07:09] LABS: C Peptide 2.9 ng/mL (1.1-4.4)
== END ==
PROVIDERS: PCP Internal Medicine; Referring Provider Internal Medicine; Visit Provider Internal Medicine
DX: E11.21 Type 2 diabetes mellitus with diabetic nephropathy (principal)
CPT/HCPCS: 36415; 84681

== ENCOUNTER 2020-05-19 13:55 | Emergency (ER) | payer MEDICARE, OTHER, SELFPAY ==
[2020-05-19 14:00] VITALS: BP 128/99; PULSE 86; RESP 16; TEMP 36.8; O2SAT 98
--- NOTE | 2020-05-19 14:05 | DI.CT.S_ITS ---
PROCEDURE: CT HEAD/BRAIN WO CON INDICATIONS: head trauma LEFT FORHEAD TECHNIQUE: Noncontrast 4.5 mm thick angled axial sections acquired from the foramen magnum to the vertex, with coronal and sagittal reformats. For radiation dose reduction, the following was used: automated exposure control, adjustment of mA and/or kV according to patient size. COMPARISON: [facility], CT, CT HEAD/BRAIN WO CON, 10/07/2018, 8:44. [facility], CT, HEAD WITHOUT CONTRAST, 11/10/2014, 15:47. FINDINGS: Image quality: Excellent. CSF spaces: Basal cisterns are patent. No extra-axial fluid collections. The ventricles are symmetric in size and shape. Brain: No acute intracranial hemorrhage or mass effect. There is cerebral volume loss for age, with resultant ventricular and sulcal prominence. There are periventricular and deep white matter chronic small vessel ischemic changes. There is intracranial internal carotid artery atherosclerosis. Skull and face: Irregularity of the skin surface overlying the right frontal sinus may represent focal laceration. No underlying skull fracture is seen. Sinuses: There is partial opacification of the ethmoid air cells bilaterally. Mild mucosal thickening is seen in the left sphenoid sinus and the bilateral maxillary sinuses. IMPRESSION: No acute intracranial hemorrhage or mass effect. Probable forehead laceration. No skull fracture is seen. Mild chronic microvascular ischemic changes. Dictated by: Abdulaziz Amaro M.D. on 05/19/2020 at 14:41 Approved by: Abdulaziz Amaro M.D. on 05/19/2020 at 14:45
--- NOTE | 2020-05-19 14:05 | DI.RAD.S_ITS ---
PROCEDURE: XR KNEE RT 3V INDICATIONS: R knee pain post fall TECHNIQUE: 4 views of the knee were acquired. COMPARISON: None. FINDINGS: Bones: No fractures or dislocations. No suspicious bony lesions. Soft tissues: No joint effusion. No suspicious soft tissue calcifications. IMPRESSION: Moderately severe osteoarthritis as indicated by joint space narrowing at the lateral compartment, mild to moderate such degenerative change at the medial compartment and mild osteoarthritis at the patellofemoral joint. No acute trauma found. Dictated by: Antonio Avalos M.D. on 05/19/2020 at 15:03 Approved by: Antonio Avalos M.D. on 05/19/2020 at 15:04
--- NOTE | 2020-05-19 14:05 | DI.RAD.S_ITS ---
PROCEDURE: XR WRIST RT MIN 3V INDICATIONS: R wrist pain post fall TECHNIQUE: 4 views of the wrist were acquired. COMPARISON: None. FINDINGS: Bones: No fractures or dislocations. No suspicious bony lesions. Scaphoid view: No trauma. Soft tissues: No suspicious soft tissue calcifications. IMPRESSION: No trauma found. If there is clinical concern for presence of hidden fracture follow-up by delayed plain films or advanced imaging, such as CT or MRI, could be obtained. The normal superimposition of multiple osseous margins in this area reduces the study's ability to detect nondisplaced fractures. Dictated by: Antonio Avalos M.D. on 05/19/2020 at 15:02 Approved by: Antonio Avalos M.D. on 05/19/2020 at 15:03
--- NOTE | 2020-05-19 14:07 | ED.FALL ---
HPI - Fall <ALAN VelizP - Last Filed: 05/19/20 20:53> General Chief Complaint: Fall Stated Complaint: FALL Time Seen by Provider: 05/19/20 13:56 Source: EMS Mode of arrival: EMS History of Present Illness HPI Narrative: 79yo female with a history of diabetes, presents to the emergency department after a fall. She states she was walking to the pharmacy when she tripped and fell forward hitting her head on the tile floor. Bystanders witnessed the fall, no loss of consciousness, no vomiting. Patient denies feeling a symptoms prior to fall such as dizziness or weakness. Patient states she needed help getting up, was transported to the hospital via EMS. She states she has a dull aching 5/10 headache, right wrist and right knee pain. Patient states she is currently taking aspirin, denies taking any Coumadin, warfarin, or Plavix. Patient denies any dizziness at this time, chest pain, shortness of breath, high fevers, vertigo, nausea, vomiting, diarrhea, or other concerns. Related Data Home Medications Medication Instructions Recorded Confirmed aspirin 81 mg tablet,delayed 81 mg PO DAILY 08/12/19 06/03/20 release Previous Rx's Medication Instructions Recorded calcium carbonate-vitamin D3 1 tab PO BID #180 tab 06/13/17 [Oyster Shell Calcium-Vit D3] albuterol sulfate 90 mcg/actuation 2 puff INHALATION Q4-6HP PRN #3 ea 05/22/18 aerosol inhaler citalopram 20 mg tablet 20 mg PO QDAY #90 tab 01/29/19 rosuvastatin 40 mg tablet 40 mg PO HS #90 tab 04/06/19 fluticasone 250 mcg-salmeterol 50 1 inh INHALATION BID PRN #180 each 08/12/19 mcg/dose blistr powdr for inhalation ezetimibe 10 mg tablet 10 mg PO DAILY #90 tab 06/03/20 glipizide 2.5 mg tablet, extended 2.5 mg PO TID #270 tab 06/03/20 release 24 hr lancets percision extra #100 each 06/03/20 lisinopril 2.5 mg tablet 2.5 mg PO DAILY #90 tab 06/03/20 metformin 1,000 mg tablet 1,000 mg PO BID #180 tab 06/03/20 pantoprazole 40 mg tablet,delayed 40 mg PO HS #90 tab 06/03/20 release [Test Strips] #100 each 06/10/20 Allergies Allergy/AdvReac Type Severity Reaction Status Date / Time doxycycline Allergy Mild BLISTERS Verified 06/03/20 13:27 acarbose AdvReac Severe gas; Verified 06/03/20 13:27 belching sucralfate AdvReac Severe Nausea Verified 06/03/20 13:27 Review of Systems <ANTONIO Veliz - Last Filed: 05/19/20 20:53> Review of Systems Narrative: REVIEW OF SYSTEMS: GENERAL: Denies fever or chills. HENT: Reports head trauma, see HPI. EYES: No loss of vision, double vision, eye pain, or irritation. CARDIOVASCULAR: No chest pain or syncope. RESPIRATORY: No shortness of breath or cough. GASTROINTESTINAL: No nausea, vomiting, diarrhea, or constipation. GENITOURINARY: No flank pain. MUSCULOSKELETAL: Reports right sided wrist and knee pain, see HPI. INTEGUMENTARY: No rash, lesions, or pruritus. NEURO: No numbness or tingling. No confusion. No LOC. No dizziness. PSYCH: No behavior or mood changes. Patient History <ANTONIO Veliz - Last Filed: 05/19/20 20:53> Medical History (Updated 06/04/20 @ 19:41 by Noe Simpson MD) Asthma (Chronic) CAD (coronary artery disease) (Chronic) Depression (Chronic) Diabetes mellitus (Chronic) Hemorrhoids (Chronic) History of open fracture (Resolved) Hyperlipidemia (Chronic) Hypertension (Chronic) CA (myocardial infarction) (Resolved 11/2008) Open bimalleolar fracture of right ankle (Resolved 11/29/17) Osteoporosis (Chronic) Vaginal candidiasis (Resolved) Surgical History History of heart artery stent (Resolved 11/2008) History of open reduction and internal fixation (ORIF) procedure (Resolved 11/29/17) History of tonsillectomy (Resolved 1961) Status post appendectomy (Resolved 1960) Status post Tyler fundoplication (Resolved 2001) Family History Father Alcoholic Stroke Hypertension Brother Leukemia Mother CA (myocardial infarction) Heart disease Sister Heart disease Sister Alzheimer's disease Sister No problems noted. Brother No problems noted. Family/Other Age: 57 Alcoholic Family/Other Age: 55 Hyperlipidemia Family/Other Age: 54 Hyperlipidemia Social History marital status: household members: spouse occupational status: previously employed Smoking Status: Never smoker second hand exposure: Yes (I was for 42 years. ) alcohol intake: never substance use type: does not use Smoking Status: Never smoker Substance Use Type: does not use Exam <ANTONIO Veliz - Last Filed: 05/19/20 20:53> Initial Vital Signs Initial Vital Signs: Vital Signs Temperature 98.3 F 05/19/20 14:00 Pulse Rate 86 05/19/20 14:00 Respiratory Rate 16 05/19/20 14:00 Blood Pressure 128/99 H 05/19/20 14:00 Pulse Oximetry 98 05/19/20 14:00 PHYSICAL EXAMINATION: GENERAL: Well groomed, alert, and cooperative. Answers questions promptly and appropriately. Vital signs noted. HENT: Ecchymosis noted to right eyebrow and over upper nasal bridge. A 3 cm laceration noted above right eyebrow on forehead. No foreign bodies. EYES: Conjunctiva pink, sclera white, no periorbital swelling. CHEST: Normal to inspection and without deformities. CARDIOVASCULAR: S1 and S2 sounds normal. Regular rate and rhythm, no murmurs, clicks, or bruits. No pedal edema. RESPIRATORY: Normal respiratory rate, trachea midline, airway patent. No stridor, nasal flaring or accessory muscle use. Lungs are clear in all rocha without wheeze, rhonchi, or crackles. GASTROINTESTINAL: Bowel sounds normoactive. Abdomen is soft and non-tender. No organomegaly. MUSCULOSKELETAL: Tenderness radial aspect of wrist with palpation. Slight tenderness to palpation of right knee, small amount of ecchymosis noted. No significant effusion appreciated. Normal gait and coordination. Equal tone and mass bilaterally. EXTREMITIES: CMS intact. Moves all extremities. SKIN: Warm, dry, soft, appropriate color for ethnicity. Large 9cm x 5cm skin tear noted to right wrist, small amount of ecchymosis noted. NEURO: Alert and Oriented X 3. Good coordination. No ataxia, or sensory deficits, or cognitive issues. Cranial Nerves: II: Visual rocha grossly intact. III & IV & : EOMIs V: Able to open and close jaw. VII: Facial movements symetrical. Able to close eyelids tightly. VIII: Hearing grossly intact, adequate balance. X: Uvula pronation intact. XI: Patient is able to shrug shoulders. XII: Patient is able to stick out tongue and move it side to side. PSYCH: Appropriate affect and mood. <Parminder Vieira MD - Last Filed: 06/13/20 07:13> Initial Vital Signs Initial Vital Signs: Vital Signs Temperature 98.3 F 05/19/20 14:00 Pulse Rate 86 05/19/20 14:00 Respiratory Rate 16 05/19/20 14:00 Blood Pressure 128/99 H 05/19/20 14:00 Pulse Oximetry 98 05/19/20 14:00 Procedures <ANTONIO Veliz - Last Filed: 05/19/20 20:53> Laceration Repair Laceration 1: Site: face Size (cm): 3 Description: linear Depth: simple, single layer Pre-repair: wound explored and irrigated extensively Skin layer closed with: dermabond Scores <ANTONIO Veliz - Last Filed: 05/19/20 20:53> Nexus Score for C-Spine Focal Neurologic deficit present: No Midline spinal tenderness present: No Altered level of conciousness present: No Intoxication present: No Distracting Injury Present: No Nexus Criteria for C-spine: 0 Course <ANTONIO Veliz - Last Filed: 05/19/20 20:53> Course Course Narrative: Tdap updated. Tylenol given for pain, patient states she is feeling much better. Orders Ordered: Discontinued Medications Acetaminophen (Tylenol) 650 mg PO NOW ONE Stop: 05/19/20 14:06 Last Admin: 05/19/20 14:52 Dose: 650 mg Documented by: AVRIL Diphtheria/Tetanus/Acell Pertussis (Adacel) 0.5 ml IM .ONCE ONE Stop: 05/19/20 14:06 Last Admin: 05/19/20 14:51 Dose: 0.5 ml Documented by: AVRIL Vital Signs Vital signs: Vital Signs - 8 hr 05/19/20 14:00 05/19/20 14:42 05/19/20 15:00 Temperature 98.3 F Pulse Rate 86 89 Respiratory Rate 16 Blood Pressure 128/99 H Pulse Oximetry 98 97 97 05/19/20 15:30 05/19/20 15:31 Temperature Pulse Rate 83 86 Respiratory Rate Blood Pressure 110/65 Pulse Oximetry 97 97 <Parminder Vieira MD - Last Filed: 06/13/20 07:13> Orders Ordered: Discontinued Medications Acetaminophen (Tylenol) 650 mg PO NOW ONE Stop: 05/19/20 14:06 Last Admin: 05/19/20 14:52 Dose: 650 mg Documented by: AVRIL Diphtheria/Tetanus/Acell Pertussis (Adacel) 0.5 ml IM .ONCE ONE Stop: 05/19/20 14:06 Last Admin: 05/19/20 14:51 Dose: 0.5 ml Documented by: AVRIL Vital Signs Vital signs: Vital Signs - 8 hr 05/19/20 14:00 05/19/20 14:42 05/19/20 15:00 Temperature 98.3 F Pulse Rate 86 89 Respiratory Rate 16 Blood Pressure 128/99 H Pulse Oximetry 98 97 97 05/19/20 15:30 05/19/20 15:31 Temperature Pulse Rate 83 86 Respiratory Rate Blood Pressure 110/65 Pulse Oximetry 97 97 MDM - Fall <ANTONIO Veliz - Last Filed: 05/19/20 20:53> Medical Records Attestation: I reviewed the patient's medical records. Lab Data Attestation: I reviewed the patient's lab results. Imaging Data CT scan - head: Radiologist's Impression: [address] [address] [address] Scan Report Signed Patient: Poppy Meier KMR#: [id number] : 2Acct:[id number] Age/Sex: 79 / FDate of Service: 05/19/20 Loc: ED Accession Number: [id number] Procedure: CT head/brain wo con Ordering Provider: Evy Villarreal PROCEDURE: CT HEAD/BRAIN WO CON INDICATIONS: head trauma LEFT FORHEAD TECHNIQUE: Noncontrast 4.5 mm thick angled axial sections acquired from the foramen magnum to the vertex, with coronal and sagittal reformats. For radiation dose reduction, the following was used: automated exposure control, adjustment of mA and/or kV according to patient size. COMPARISON: [facility], CT, CT HEAD/BRAIN WO CON, 10/07/2018, 8:44. [facility], CT, HEAD WITHOUT CONTRAST, 11/10/2014, 15:47. FINDINGS: Image quality: Excellent. CSF spaces: Basal cisterns are patent. No extra-axial fluid collections. The ventricles are symmetric in size and shape. Brain: No acute intracranial hemorrhage or mass effect. There is cerebral volume loss for age, with resultant ventricular and sulcal prominence. There are periventricular and deep white matter chronic small vessel ischemic changes. There is intracranial internal carotid artery atherosclerosis. Skull and face: Irregularity of the skin surface overlying the right frontal sinus may represent focal laceration. No underlying skull fracture is seen. Sinuses: There is partial opacification of the ethmoid air cells bilaterally. Mild mucosal thickening is seen in the left sphenoid sinus and the bilateral maxillary sinuses. IMPRESSION: No acute intracranial hemorrhage or mass effect. Probable forehead laceration. No skull fracture is seen. Mild chronic microvascular ischemic changes. Dictated by: Abdulaziz Amaro M.D. on 05/19/2020 at 14:41 Approved by: Abdulaziz Amaro M.D. on 05/19/2020 at 14:45 CT Face: Radiologist's Impression: [place] [address] CT Scan Report Signed Patient: Poppy Meier KMR#: [id number] : 2Acct:[id number] Age/Sex: 79 / FDate of Service: 05/19/20 Loc: ED Accession Number: [id number] Procedure: CT facial bones wo con Ordering Provider: Evy Villarreal PROCEDURE: CT FACIAL BONES WO CON INDICATIONS: Trauma to LEFT forehead and nose TECHNIQUE: Noncontrast 2.5 mm thick axial images acquired from the mandible through the frontal sinuses, with coronal and sagittal reformatting. For radiation dose reduction, the following was used: automated exposure control, adjustment of mA and/or kV according to patient size. COMPARISON: None. FINDINGS: Image quality: Excellent. Bones and teeth: Orbital hermosillo are intact. Sinus hermosillo show no fracture or deformity. Nasal bones and septum are intact. Visualized portions of the mandible demonstrate no fractures or subluxation. Zygomatic arches are intact. Pterygoid plates are intact. Visualized portions of the skull base and auditory canals are intact. Degenerative changes are seen in the temporomandibular joints bilaterally. Mild multilevel degenerative changes are seen in the included portions of the cervical spine. Sinuses: There is partial opacification of the ethmoid air cells bilaterally. Mild mucosal thickening is seen in the left sphenoid sinus and both maxillary sinuses as well as the inferior portion of the left frontal sinus. Mastoid air cells are aerated. Soft tissues: Focal skin irregularity in the right forehead with mild subcutaneous edema most likely represents small focal laceration. The adjacent calvarium is intact. Thinning of the intra-articular lenses is compatible with prior cataract/cataracts surgery. No enlarged lymph nodes. Vascular: Visualized vascular structures appear normal in the absence of contrast. Bony vascular foramina and canals are intact. IMPRESSION: 1. Right forehead laceration is noted. No acute facial fracture is seen. 2. Mucosal thickening and partial opacification throughout the paranasal sinuses. Dictated by: Abdulaziz Amaro M.D. on 05/19/2020 at 14:45 Approved by: Abdulaziz Amaro M.D. on 05/19/2020 at 14:53 CT wrist: Radiologist's Impression: [place] [address] XRay Report Signed Patient: Poppy Meier KMR#: [id number] : 2Acct:[id number] Age/Sex: 79 / FDate of Service: 05/19/20 Loc: ED Accession Number: [id number] Procedure: XR wrist RT min 3V Ordering Provider: Evy Villarreal PROCEDURE: XR WRIST RT MIN 3V INDICATIONS: R wrist pain post fall TECHNIQUE: 4 views of the wrist were acquired. COMPARISON: None. FINDINGS: Bones: No fractures or dislocations. No suspicious bony lesions. Scaphoid view: No trauma. Soft tissues: No suspicious soft tissue calcifications. IMPRESSION: No trauma found. If there is clinical concern for presence of hidden fracture follow-up by delayed plain films or advanced imaging, such as CT or MRI, could be obtained. The normal superimposition of multiple osseous margins in this area reduces the study's ability to detect nondisplaced fractures. Dictated by: Antonio Avalos M.D. on 05/19/2020 at 15:02 Approved by: Antonio Avalos M.D. on 05/19/2020 at 15:03 CT knee: Radiologist's Impression: [address] [address] XRay Report Signed Patient: Poppy Meier KMR#: [id number] : 2Acct:[id number] Age/Sex: 79 / FDate of Service: 05/19/20 Loc: ED Accession Number: [id number] Procedure: XR knee RT 3V Ordering Provider: Evy Villarreal PROCEDURE: XR KNEE RT 3V INDICATIONS: R knee pain post fall TECHNIQUE: 4 views of the knee were acquired. COMPARISON: None. FINDINGS: Bones: No fractures or dislocations. No suspicious bony lesions. Soft tissues: No joint effusion. No suspicious soft tissue calcifications. IMPRESSION: Moderately severe osteoarthritis as indicated by joint space narrowing at the lateral compartment, mild to moderate such degenerative change at the medial compartment and mild osteoarthritis at the patellofemoral joint. No acute trauma found. Dictated by: Antonio Avalos M.D. on 05/19/2020 at 15:03 Approved by: Antonio Avalos M.D. on 05/19/2020 at 15:04 [facility] Narrative Medical decision making narrative: 79-year-old female presents emergency department for a clearly stated mechanical fall with a laceration to her face, swelling around her nose, and right wrist and right knee pain. CT negative for any fractures, nexus score 0. Patient awake and alert. No concerning signs as vomiting or syncope. X-rays negative for wrist fractures or infections. Patient able to ambulate without difficulty. Laceration repaired with Dermabond per procedure note. Return precautions given for new or worsening symptoms. Patient agreed to plan of care verbalized understanding. Discharge Plan Departure Patient Disposition: Home Clinical Impression: Head injury, Laceration, Skin tear Discharge Date/Time: 05/19/20 15:50 Instructions: DI for Laceration Repair, How to Prevent Falls, Closed Head Injury Activity Restrictions/Additional Instructions: Thank you for entrusting me with your care today. As discussed, your laceration was repaired with glue. Do not place any Neosporin or ointment on this area for the next 5 days. Please try to keep the area dry for the next 24 hours. After that, you may rinse the area gently with soap and water. The glue will start to peel off in the next few days, do not pull on it. Your x-rays and CTs are negative for any fractures or other concerns such as bleeding in the brain. Keep the bandage on your skin tear for the next 24 hours, after that you may remove the bandage. Apply Neosporin or bacitracin to the area 1 to 2 times a day. Wash gently with soap and water. You may feel more tired and sore over the next few days. Use Tylenol for pain. Return emergency department for any new or worsening symptoms such as vomiting, unusual behavior, severe pain, or any other concerns. Prescriptions: No Action calcium carbonate-vitamin D3 [Oyster Shell Calcium-Vit D3] 500 MG/200 IU tablet 1 tab PO BID Qty: 180 RF: 3 albuterol sulfate [Ventolin HFA] 90 mcg/actuation HFA aerosol inhaler 2 puff INHALATION Q4-6HP PRN (Reason: shortness of breath) Qty: 3 RF: 3 citalopram [Celexa] 20 mg tablet 20 mg PO QDAY Qty: 90 RF: 3 rosuvastatin 40 mg tablet 40 mg PO HS Qty: 90 RF: 3 (DME) [Test Strips] 0 .Route .MEDSUPPLY Qty: 100 RF: 3 aspirin [Adult Low Dose Aspirin] 81 mg tablet,delayed release (DR/EC) 81 mg PO DAILY RF: 0 fluticasone propion-salmeterol [Advair Diskus] 250-50 mcg/dose blister with device 1 inh INHALATION BID PRN (Reason: allergies) Qty: 180 RF: 3 lisinopril 2.5 mg tablet 2.5 mg PO DAILY Qty: 90 RF: 3 metformin 1,000 mg tablet 1,000 mg PO BID Qty: 180 RF: 3 glipizide [Glucotrol XL] 2.5 mg tablet extended release 24hr 2.5 mg PO TID Qty: 270 RF: 3 ezetimibe 10 mg tablet 10 mg PO DAILY Qty: 90 RF: 3 pantoprazole 40 mg tablet,delayed release (DR/EC) 40 mg PO HS Qty: 90 RF: 3 (DME) lancets percision extra Qty: 100 RF: 5 Referrals: Stephenie Gore MD [Primary Care Provider] -
--- NOTE | 2020-05-19 14:15 | DI.CT.S_ITS ---
PROCEDURE: CT FACIAL BONES WO CON INDICATIONS: Trauma to LEFT forehead and nose TECHNIQUE: Noncontrast 2.5 mm thick axial images acquired from the mandible through the frontal sinuses, with coronal and sagittal reformatting. For radiation dose reduction, the following was used: automated exposure control, adjustment of mA and/or kV according to patient size. COMPARISON: None. FINDINGS: Image quality: Excellent. Bones and teeth: Orbital hermosillo are intact. Sinus hermosillo show no fracture or deformity. Nasal bones and septum are intact. Visualized portions of the mandible demonstrate no fractures or subluxation. Zygomatic arches are intact. Pterygoid plates are intact. Visualized portions of the skull base and auditory canals are intact. Degenerative changes are seen in the temporomandibular joints bilaterally. Mild multilevel degenerative changes are seen in the included portions of the cervical spine. Sinuses: There is partial opacification of the ethmoid air cells bilaterally. Mild mucosal thickening is seen in the left sphenoid sinus and both maxillary sinuses as well as the inferior portion of the left frontal sinus. Mastoid air cells are aerated. Soft tissues: Focal skin irregularity in the right forehead with mild subcutaneous edema most likely represents small focal laceration. The adjacent calvarium is intact. Thinning of the intra-articular lenses is compatible with prior cataract/cataracts surgery. No enlarged lymph nodes. Vascular: Visualized vascular structures appear normal in the absence of contrast. Bony vascular foramina and canals are intact. IMPRESSION: 1. Right forehead laceration is noted. No acute facial fracture is seen. 2. Mucosal thickening and partial opacification throughout the paranasal sinuses. Dictated by: Abdulaziz Amaro M.D. on 05/19/2020 at 14:45 Approved by: Abdulaziz Amaro M.D. on 05/19/2020 at 14:53
[2020-05-19 14:42] VITALS: PULSE 89; O2SAT 97
[2020-05-19] MEDS: TET,DIPH,PERTUSS(ACELL),VAC/PF 0.5 ML SYRINGE IM (14:51)
[2020-05-19] MEDS: ACETAMINOPHEN 325 MG TABLET 650 MG PO (14:52)
[2020-05-19 15:00] VITALS: O2SAT 97
[2020-05-19 15:30] VITALS: PULSE 83; O2SAT 97
[2020-05-19 15:31] VITALS: BP 110/65; PULSE 86; PULSE 87; O2SAT 97
== END 2020-05-19 15:50 | disposition home or self-care (01) ==
PROVIDERS: Emergency Provider Nurse Practitioner; PCP Internal Medicine
DX: S01.01XA Laceration without foreign body of scalp, initial encounter (principal); W01.0XXA Fall on same level from slipping, tripping and stumbling without subsequent striking against object, initial encounter
CPT/HCPCS: 12013; 70450; 70486; 73110; 73562; 90471; 99284; 90715

== ENCOUNTER → 2020-06-03 14:19 | Outpatient (CLI) | payer MEDICARE, OTHER, SELFPAY ==
--- NOTE | 2020-06-03 14:21 | DI.RAD.S_ITS ---
PROCEDURE: XR RIBS RT MIN 3V W CXR 1V INDICATIONS: Chest pain following fall TECHNIQUE: To views of the right ribs were acquired, along with a single view chest. COMPARISON: None. FINDINGS: Surgical changes and devices: None. Bones and chest wall: No fractures or dislocations. No suspicious bony lesions. Overlying soft tissues appear unremarkable. Lungs and pleura: No pleural effusions or pneumothorax. Lungs appear clear. Mediastinum: Mediastinal contours appear normal. Heart size is normal. IMPRESSION: No displaced rib fracture. No acute cardiopulmonary disease process. Dictated by: Elyse Jean MD, PhD on 06/03/2020 at 15:11 Approved by: Elyse Jean MD, PhD on 06/03/2020 at 15:12
== END ==
PROVIDERS: PCP Student in an Organized Health Care Education/Training Program; Referring Provider Student in an Organized Health Care Education/Training Program; Visit Provider Student in an Organized Health Care Education/Training Program
DX: R07.9 Chest pain, unspecified (principal)
CPT/HCPCS: 71101

== ENCOUNTER → 2020-06-17 09:44 | Outpatient (CLI) | payer MEDICARE, OTHER, SELFPAY | PROVIDERS: PCP Student in an Organized Health Care Education/Training Program; Referring Provider Student in an Organized Health Care Education/Training Program; Visit Provider Student in an Organized Health Care Education/Training Program | DX: M81.0 Age-related osteoporosis without current pathological fracture (principal); Z78.0 Asymptomatic menopausal state; E11.9 Type 2 diabetes mellitus without complications | CPT/HCPCS: 77080 ==

== ENCOUNTER → 2020-08-04 09:50 | Outpatient (CLI) | payer MEDICARE, OTHER, SELFPAY ==
[2020-08-04 19:07] LABS: Hemoglobin A1C% w Est Avg Glu 7.8 % (4.0-6.0)
== END ==
PROVIDERS: PCP Student in an Organized Health Care Education/Training Program; Referring Provider Student in an Organized Health Care Education/Training Program; Visit Provider Student in an Organized Health Care Education/Training Program
DX: E11.65 Type 2 diabetes mellitus with hyperglycemia (principal); E11.8 Type 2 diabetes mellitus with unspecified complications
CPT/HCPCS: 36415; 83036

== ENCOUNTER → 2020-08-07 08:52 | Outpatient (CLI) | payer MEDICARE, OTHER, SELFPAY ==
[2020-08-08 20:13] LABS: COVID19 Sendout Not Detected (Not Detect)
== END ==
PROVIDERS: PCP Student in an Organized Health Care Education/Training Program; Visit Provider Physician Assistant
DX: Z11.59 Encounter for screening for other viral diseases (principal)
CPT/HCPCS: 87635

== ENCOUNTER 2020-08-10 07:55 | Day surgery (SDC) | payer MEDICARE, OTHER, SELFPAY ==
--- NOTE | 2020-08-10 | PATH_ITS ---
[facility] Accession Number: [id number] . 01 Material submitted: . colon - HEPATIC FLEXURE POLYP . 01 Clinical history: . DX COLONOSCOPY . 02 Diagnosis: Hepatic Flexure, Polyp, Biopsy: Tubular adenoma. MRV 08/16/2020 1455 Local . 02 Electronically signed: . Khloe Zelaya MD, Pathologist NPI- [id number] . 01 Gross description: . Received in formalin, labeled hepatic flexure polyp, and consists of two urrutia-pink fragments of soft tissue measuring 0.5 x 0.4 x 0.2 cm in aggregate. The specimen is entirely submitted in cassette A1. ([id number]) /MRV 08/11/2020 1549 Local . 02 Pathologist provided ICD-10: D12.3 . 02 CPT . 965946 Performed at: 01 [facility] [address], [place], [place] [id number] MD Doug Royal MD Phone: [phone] Performed at: 02 [facility] [address] [place], [place] [id number] MD Khloe Zelaya MD Phone: [phone]
[2020-08-10 08:16] VITALS: BP 101/63; PULSE 105; RESP 20; TEMP 36.2; O2SAT 98; BMI 22.3
--- NOTE | 2020-08-10 08:18 | PM.HP.1 ---
History of Present Illness History of Present Illness Chief complaint: DX COLONOSCOPY Narrative: Patient is a 79 year old female who presented for colonoscopy. She was seen in the office 06/30/2020 for change of bowel habits, fecal incontinence and history of polyps. Patient History Medical History (Updated 06/04/20 @ 19:41 by Noe Simpson MD) Asthma (Chronic) CAD (coronary artery disease) (Chronic) Depression (Chronic) Diabetes mellitus (Chronic) Hemorrhoids (Chronic) History of open fracture (Resolved) Hyperlipidemia (Chronic) Hypertension (Chronic) ND (myocardial infarction) (Resolved 11/2008) Open bimalleolar fracture of right ankle (Resolved 11/29/17) Osteoporosis (Chronic) Vaginal candidiasis (Resolved) Surgical History History of heart artery stent (Resolved 11/2008) History of open reduction and internal fixation (ORIF) procedure (Resolved 11/29/17) History of tonsillectomy (Resolved 1961) Status post appendectomy (Resolved 1960) Status post Tyler fundoplication (Resolved 2001) Family & Social History Family History Father Alcoholic Stroke Hypertension Brother Leukemia Mother ND (myocardial infarction) Heart disease Sister Heart disease Sister Alzheimer's disease Sister No problems noted. Brother No problems noted. Family/Other Age: 57 Alcoholic Family/Other Age: 55 Hyperlipidemia Family/Other Age: 54 Hyperlipidemia Social History: household members spouse Tobacco & Substance use: Smoking Status Never smoker alcohol intake never Substance Use Type does not use Meds Home Medications and Allergies Home Medications Medication Instructions Recorded Confirmed Type calcium carbonate-vitamin D3 1 tab PO BID #180 tab 06/13/17 08/10/20 Rx [Oyster Shell Calcium-Vit D3] albuterol sulfate 90 mcg/actuation 2 puff INHALATION Q4-6HP PRN #3 ea 05/22/18 08/10/20 Rx aerosol inhaler citalopram 20 mg tablet 20 mg PO QDAY #90 tab 01/29/19 08/10/20 Rx rosuvastatin 40 mg tablet 40 mg PO HS #90 tab 04/06/19 08/10/20 Rx aspirin 81 mg tablet,delayed 81 mg PO DAILY 08/12/19 08/10/20 History release fluticasone 250 mcg-salmeterol 50 1 inh INHALATION BID PRN #180 each 08/12/19 08/10/20 Rx mcg/dose blistr powdr for inhalation ezetimibe 10 mg tablet 10 mg PO DAILY #90 tab 06/03/20 08/10/20 Rx glipizide 2.5 mg tablet, extended 2.5 mg PO TID #270 tab 06/03/20 08/10/20 Rx release 24 hr lancets percision extra #100 each 06/03/20 08/10/20 Rx lisinopril 2.5 mg tablet 2.5 mg PO DAILY #90 tab 06/03/20 08/10/20 Rx metformin 1,000 mg tablet 1,000 mg PO BID #180 tab 06/03/20 08/10/20 Rx pantoprazole 40 mg tablet,delayed 40 mg PO HS #90 tab 06/03/20 08/10/20 Rx release [Test Strips] #100 each 06/10/20 08/10/20 Rx Allergies Allergy/AdvReac Type Severity Reaction Status Date / Time doxycycline Allergy Mild BLISTERS Verified 06/30/20 13:04 acarbose AdvReac Severe gas; Verified 06/30/20 13:04 belching sucralfate AdvReac Severe Nausea Verified 06/30/20 13:04
--- NOTE | 2020-08-10 08:19 | PM.HP.1 ---
History of Present Illness History of Present Illness Chief complaint: DX COLONOSCOPY Narrative: Patient is a 79 year old female who presented for colonoscopy. She was seen in the office 06/30/2020 for change of bowel habits, fecal incontinence and history of polyps. Patient History Medical History Asthma (Chronic) CAD (coronary artery disease) (Chronic) Depression (Chronic) Diabetes mellitus (Chronic) Hemorrhoids (Chronic) History of open fracture (Resolved) Hyperlipidemia (Chronic) Hypertension (Chronic) VA (myocardial infarction) (Resolved 11/2008) Open bimalleolar fracture of right ankle (Resolved 11/29/17) Osteoporosis (Chronic) Vaginal candidiasis (Resolved) Surgical History History of heart artery stent (Resolved 11/2008) History of open reduction and internal fixation (ORIF) procedure (Resolved 11/29/17) History of tonsillectomy (Resolved 1961) Status post appendectomy (Resolved 1960) Status post Tyler fundoplication (Resolved 2001) Family & Social History Family History Father Alcoholic Stroke Hypertension Brother Leukemia Mother [place] (myocardial infarction) Heart disease Sister Heart disease Sister Alzheimer's disease Sister No problems noted. Brother No problems noted. Family/Other Age: 57 Alcoholic Family/Other Age: 55 Hyperlipidemia Family/Other Age: 54 Hyperlipidemia Social History: household members spouse Tobacco & Substance use: Smoking Status Never smoker alcohol intake never Substance Use Type does not use Meds Home Medications and Allergies Home Medications Medication Instructions Recorded Confirmed Type calcium carbonate-vitamin D3 1 tab PO BID #180 tab 06/13/17 08/10/20 Rx [Oyster Shell Calcium-Vit D3] albuterol sulfate 90 mcg/actuation 2 puff INHALATION Q4-6HP PRN #3 ea 05/22/18 08/10/20 Rx aerosol inhaler citalopram 20 mg tablet 20 mg PO QDAY #90 tab 01/29/19 08/10/20 Rx rosuvastatin 40 mg tablet 40 mg PO HS #90 tab 04/06/19 08/10/20 Rx aspirin 81 mg tablet,delayed 81 mg PO DAILY 11/13/19 11/11/20 History release fluticasone 250 mcg-salmeterol 50 1 inh INHALATION BID PRN #180 each 08/12/19 08/10/20 Rx mcg/dose blistr powdr for inhalation ezetimibe 10 mg tablet 10 mg PO DAILY #90 tab 06/03/20 08/10/20 Rx glipizide 2.5 mg tablet, extended 2.5 mg PO TID #270 tab 06/03/20 08/10/20 Rx release 24 hr lancets percision extra #100 each 06/03/20 08/10/20 Rx lisinopril 2.5 mg tablet 2.5 mg PO DAILY #90 tab 06/03/20 08/10/20 Rx metformin 1,000 mg tablet 1,000 mg PO BID #180 tab 06/03/20 08/10/20 Rx pantoprazole 40 mg tablet,delayed 40 mg PO HS #90 tab 06/03/20 08/10/20 Rx release [Test Strips] #100 each 06/10/20 08/10/20 Rx Allergies Allergy/AdvReac Type Severity Reaction Status Date / Time doxycycline Allergy Mild BLISTERS Verified 06/30/20 13:04 acarbose AdvReac Severe gas; Verified 06/30/20 13:04 belching sucralfate AdvReac Severe Nausea Verified 06/30/20 13:04
[2020-08-10] MEDS: SODIUM CHLORIDE 0.9% 1,000 ML 70 ML IV (08:34)
--- NOTE | 2020-08-10 08:59 | PM.HP.1 ---
History of Present Illness History of Present Illness Chief complaint: DX COLONOSCOPY Narrative: Patient is a 79 year old female who presented for colonoscopy. She was seen in the office 06/30/2020 for change of bowel habits, fecal incontinence and history of polyps. She denies any changes to her symptoms since that time. Patient History Medical History Asthma (Chronic) CAD (coronary artery disease) (Chronic) Depression (Chronic) Diabetes mellitus (Chronic) Hemorrhoids (Chronic) History of open fracture (Resolved) Hyperlipidemia (Chronic) Hypertension (Chronic) [place] (myocardial infarction) (Resolved 11/2008) Open bimalleolar fracture of right ankle (Resolved 11/29/17) Osteoporosis (Chronic) Vaginal candidiasis (Resolved) Surgical History History of heart artery stent (Resolved 11/2008) History of open reduction and internal fixation (ORIF) procedure (Resolved 11/29/17) History of tonsillectomy (Resolved 1961) Status post appendectomy (Resolved 1960) Status post Tyler fundoplication (Resolved 2001) Family & Social History Family History Father Alcoholic Stroke Hypertension Brother Leukemia Mother [place] (myocardial infarction) Heart disease Sister Heart disease Sister Alzheimer's disease Sister No problems noted. Brother No problems noted. Family/Other Age: 57 Alcoholic Family/Other Age: 55 Hyperlipidemia Family/Other Age: 54 Hyperlipidemia Social History: household members spouse Tobacco & Substance use: Smoking Status Never smoker alcohol intake never Substance Use Type does not use Meds Home Medications and Allergies Home Medications Medication Instructions Recorded Confirmed Type calcium carbonate-vitamin D3 1 tab PO BID #180 tab 06/13/17 08/10/20 Rx [Oyster Shell Calcium-Vit D3] albuterol sulfate 90 mcg/actuation 2 puff INHALATION Q4-6HP PRN #3 ea 05/22/18 08/10/20 Rx aerosol inhaler citalopram 20 mg tablet 20 mg PO QDAY #90 tab 01/29/19 08/10/20 Rx rosuvastatin 40 mg tablet 40 mg PO HS #90 tab 04/06/19 08/10/20 Rx aspirin 81 mg tablet,delayed 81 mg PO DAILY 08/12/19 08/10/20 History release fluticasone 250 mcg-salmeterol 50 1 inh INHALATION BID PRN #180 each 08/12/19 08/10/20 Rx mcg/dose blistr powdr for inhalation ezetimibe 10 mg tablet 10 mg PO DAILY #90 tab 06/03/20 08/10/20 Rx glipizide 2.5 mg tablet, extended 2.5 mg PO TID #270 tab 06/03/20 08/10/20 Rx release 24 hr lancets percision extra #100 each 06/03/20 08/10/20 Rx lisinopril 2.5 mg tablet 2.5 mg PO DAILY #90 tab 06/03/20 08/10/20 Rx metformin 1,000 mg tablet 1,000 mg PO BID #180 tab 06/03/20 08/10/20 Rx pantoprazole 40 mg tablet,delayed 40 mg PO HS #90 tab 06/03/20 08/10/20 Rx release [Test Strips] #100 each 06/10/20 08/10/20 Rx Allergies Allergy/AdvReac Type Severity Reaction Status Date / Time doxycycline Allergy Mild BLISTERS Verified 06/30/20 13:04 acarbose AdvReac Severe gas; Verified 06/30/20 13:04 belching sucralfate AdvReac Severe Nausea Verified 06/30/20 13:04 Review of Systems Review of Systems ROS: Yes All systems reviewed with the patient and are negative except as otherwise documented Exam Vital Signs (past 8 hours): - 08/10/20 08:16 Temperature 97.1 F L Pulse Rate 105 H Respiratory Rate 20 Blood Pressure 101/63 Pulse Oximetry 98 Oxygen Delivery Method Room Air Const General: cooperative, healthy appearing, comfortable, well developed and well groomed Nutritional Appearance: thin Orientation: alert, awake and oriented x3 HENMT Head: normocephalic and atraumatic Resp Effort & Inspection: normal respiratory effort and able to speak in complete sentences Auscultation: clear to auscultation bilaterally Cardio Rate: regular rate Rhythm: regular rhythm Heart Sounds: S1 normal and S2 normal GI Palpation: soft and No tender Auscultation: normal bowel sounds Extrem Right lower extremity: no edema Left lower extremity: no edema Assessment & Plan Assessment & Plan narrative: 1. Change in bowel habits 2. History of colon polyps - Colonoscopy today, further recommendations to follow
[2020-08-10] MEDS: fentaNYL 250 MCG/5 ML INJ IV (09:02)
[2020-08-10] MEDS: MIDAZOLAM 5 MG/5 ML VIAL IV (09:02)
[2020-08-10 09:30] VITALS: BP 93/56; PULSE 89; RESP 10; TEMP 36.3; O2SAT 98
[2020-08-10 09:35] VITALS: BP 94/55; PULSE 89; RESP 10; O2SAT 97
--- NOTE | 2020-08-10 09:36 | PM.OP.ENDO ---
Operative Date/Time/Diagnoses Date of procedure: 08/10/20 Time of procedure: 09:04 Procedure Notes Procedure in detail: Surgeon: Amina Ravi DO Procedure: Colonoscopy with polypectomy Preoperative diagnosis: 1. Change in bowel habits 2. History of colon polyps Postoperative diagnosis: 1. 3 mm polyp at the hepatic flexure 2. Scattered diverticulosis in the descending and sigmoid colon 3. Grade 1 mild internal hemorrhoids Medications: Conscious sedation using 2 mg IV of Midazolam and 50 mcg IV of Fentanyl Preanesthesia Assessment An H and P was performed/updated and the Px?s ASA class is 2. The procedure was discussed in detail with the patient. The potential risks and complications including infection, bleeding, missed lesions, perforation, need for surgery in case of perforation, prolonged hospital stay, and were explained. A brief question and answer period was allotted and once all questions were answered, informed consent was obtained. The patient was brought back to the procedure room and placed on standard monitoring. The patient?s vital signs were monitored continuously throughout the entire procedure. Prior to starting, a timeout was performed to confirm the patient?s identity, allergies, medications, and procedure. Procedure in detail The patient was placed in left lateral decubitus position and once adequate sedation was obtained a ALBARO was performed. The digital rectal examination did not reveal any palpable lesions. The tip of the colonoscope was placed in the anal canal and advanced with some difficulty, due to tortuous colon manual pressure was applied and we were able to advance all the way to the cecum which was identified by the appendiceal orifice and the ileocecal valve. Careful examination of all hermosillo of the colon was performed with irrigation of any residual stool. A 2nd pass evaluation was completed in the ascending colon. 3 mm polyp in hepatic flexure removed with Jumbo forceps Scattered diverticulosis noted in the sigmoid and descending colon Mild grade 1 internal hemorrhoids were noted on retroflexion The patient tolerated the procedure well and will be brought back to the recovery area to be discharged once criteria are met. The prep was judged to be good/excellent and adequate to identify polyps less than 5 mm. The withdrawal time was 9min. The total physician intraservice time was 21 minutes. Complications There were no complications and estimated blood loss was minimal. Recommendations: Resume previous diet Continue outPx medications Follow up pathology results No repeat colonoscopy due to age Office follow up if persistent symptoms An emergency contact number was given to the patient for any complications related to the procedure
[2020-08-10 09:40] VITALS: BP 97/57; PULSE 91; RESP 17; O2SAT 96
[2020-08-10 09:45] VITALS: BP 100/64; PULSE 88; RESP 14; TEMP 36.9; O2SAT 97
[2020-08-10 10:10] VITALS: BP 101/63; PULSE 89; RESP 16; TEMP 36.9; O2SAT 98
--- NOTE | 2020-08-10 10:20 | SUR.PHASEII ---
Dr. De Guzman to bedside to speak with pt, pt to have f/u at their office, doctor said she would have them schedule the appt. Multiple attempts to contact have not been successful, pt dressed and awaiting in chair.
== END 2020-08-10 10:21 | disposition home or self-care (01) ==
PROVIDERS: PCP Student in an Organized Health Care Education/Training Program; Referring Provider Student in an Organized Health Care Education/Training Program; Visit Provider Student in an Organized Health Care Education/Training Program
PROC: 0DJD8ZZ Inspection of Lower Intestinal Tract, Via Natural or Artificial Opening Endoscopic (ICD-10-PCS; CPT 45378; principal; 2020-08-10 09:00)
DX: R19.4 Change in bowel habit (principal); R15.0 Incomplete defecation; I10 Essential (primary) hypertension; E11.9 Type 2 diabetes mellitus without complications; I25.10 Atherosclerotic heart disease of native coronary artery without angina pectoris; J45.909 Unspecified asthma, uncomplicated; E78.5 Hyperlipidemia, unspecified; I25.2 Old myocardial infarction; Z79.84 Long term (current) use of oral hypoglycemic drugs; K64.0 First degree hemorrhoids; K57.30 Diverticulosis of large intestine without perforation or abscess without bleeding; D12.3 Benign neoplasm of transverse colon
CPT/HCPCS: 45380; J2250; J3010

== ENCOUNTER → 2020-11-23 07:35 | Outpatient (CLI) | payer MEDICARE, OTHER, SELFPAY ==
[2020-11-23 08:24] LABS: Hemoglobin A1C% w Est Avg Glu 7.8 % (4.0-6.0)
== END ==
PROVIDERS: PCP Student in an Organized Health Care Education/Training Program; Referring Provider Student in an Organized Health Care Education/Training Program; Visit Provider Student in an Organized Health Care Education/Training Program
DX: E11.9 Type 2 diabetes mellitus without complications (principal)
CPT/HCPCS: 36415; 83036

== ENCOUNTER 2021-01-11 12:28 | Observation (INO) | payer MEDICARE, OTHER, SELFPAY ==
[2021-01-11] VITALS (71 sets, daily range): BP systolic 76–169; BP diastolic 43–83; PULSE 65–113; RESP 12–28; TEMP 36.6–37.1; O2SAT 88–99; BMI 21.7; BMI 22.4
--- NOTE | 2021-01-11 12:30 | DI.CT.S_ITS ---
PROCEDURE: CT HEAD/BRAIN WO CON INDICATIONS: fall 8ft TECHNIQUE: Noncontrast 4.5 mm thick angled axial sections acquired from the foramen magnum to the vertex, with coronal and sagittal reformats. For radiation dose reduction, the following was used: automated exposure control, adjustment of mA and/or kV according to patient size. COMPARISON: [facility], CT, CT HEAD/BRAIN WO CON, 05/19/2020, 14:12. FINDINGS: Image quality: Excellent. CSF spaces: Basal cisterns are patent. No extra-axial fluid collections. The ventricles are symmetric in size and shape. Brain: No intracranial bleeds or masses. There is cerebral volume loss for age, with resultant ventricular and sulcal prominence. There are moderate periventricular and deep white matter chronic small vessel ischemic changes. There is intracranial internal carotid artery atherosclerosis. Skull and face: Calvarium and visualized facial bones appear intact, without suspicious lesions. Subgaleal hematoma, left occipital region. Sinuses: Chronic ethmoid sinusitis with subtotal opacification of the anterior ethmoids and patchy opacification of the posterior ethmoids and some bony remodeling. Small air-fluid level in the left maxillary sinus. Left maxillary sinus mucosal thickening. IMPRESSION: 1. Age related volume loss and moderate small vessel ischemic change. 2. No evidence acute stroke, hemorrhage, or mass. 3. No evidence of significant intracranial sequelae of acute trauma. 4. Left posterior occipital subgaleal hematoma. 5. Acute on chronic sinusitis. Dictated by: Anand Gomez M.D. on 01/11/2021 at 12:46 Approved by: Anand Gomez M.D. on 01/11/2021 at 12:49
--- NOTE | 2021-01-11 12:38 | DI.CT.S_ITS ---
PROCEDURE: CT CHEST ABD PEL W CON INDICATIONS: fall pain ribs TECHNIQUE: After the administration of intravenous contrast, 5 mm thick sections acquired from the lung apices to the symphysis. 2.5 mm thick coronal and sagittal reformats were acquired. Additional 7 mm thick coronal maximum intensity projection (MIP) reformats acquired through the lungs. Optional 10-minute delayed imaging may be performed from the kidneys to the bladder. For radiation dose reduction, the following was used: automated exposure control, adjustment of mA and/or kV according to patient size. COMPARISON: None. FINDINGS: Image quality: Excellent. CHEST: Lungs: No pulmonary contusions or lacerations. No acute airspace opacities. No pneumothorax or hemothorax. Central and peripheral airways appear patent and normal in caliber. Mediastinum: No mediastinal hematomas. Heart size is normal. No pericardial effusion. Thoracic aorta and pulmonary arteries demonstrate normal size and enhancement. No mediastinal or hilar adenopathy. Esophagus is normal in caliber. No hiatal hernia. Chest wall: Numerous old left-sided rib fractures. No acute rib fractures. No subcutaneous emphysema. No axillary or supraclavicular adenopathy. Thyroid gland contains multiple thyroid nodules, including a 1.4 cm right thyroid nodule and a 2.0 cm right thyroid nodule. ABDOMEN: Solid organs: Liver is normal in size and enhancement, without lacerations. Gallbladder is unremarkable. Biliary system is non-dilated. Pancreas enhances normally, without transection. Spleen is normal in size and enhancement, without lacerations. No adrenal hematomas. There is an indeterminate left adrenal nodule measuring 2.5 x 1.5 cm. Both kidneys enhance normally, without hydronephrosis or lacerations. Peritoneum and bowel: Minimal pelvic ascites. No free air. Unenhanced bowel loops demonstrate normal wall thickness and caliber. Nodes and vessels: No retroperitoneal or mesenteric adenopathy. Aorta and inferior vena cava are normal in size and enhancement. Miscellaneous: No ventral hernias. PELVIS: Genitourinary: Bladder wall thickness is normal. Miscellaneous: No inguinal hernias or adenopathy. Bones: Pelvic ring and hip joints appear intact. There is a T4 compression fracture which appears to be acute. There are old compression fractures of T7 and T11. There are left transverse process fractures of L1, L2 and L4. IMPRESSION: 1. Numerous old, healed left rib fractures. 2. No evidence of acute pulmonary process. 3. Acute T4 compression, old T7 and T11 compressions. 4. Acute left transverse process fractures of L1, L2, and L4. 5. Indeterminate left adrenal nodule measuring 2.5 cm. Nonemergent multiphase adrenal CT is suggested. 6. Question antral gastritis. Suggest clinical correlation. 7. Multinodular thyroid. Consider nonemergent thyroid ultrasound. Dictated by: Anand Gomez M.D. on 01/11/2021 at 13:18 Approved by: Anand Gomez M.D. on 01/11/2021 at 13:26
--- NOTE | 2021-01-11 12:38 | DI.CT.S_ITS ---
PROCEDURE: CT CERVICAL SPINE WO CON INDICATIONS: fall 8 ft TECHNIQUE: Noncontrast 3 mm thick sections acquired from the skull base to the T4 level. Sagittal and coronal reformats were then constructed. For radiation dose reduction, the following was used: automated exposure control, adjustment of mA and/or kV according to patient size. COMPARISON: [facility], CT, CT CHEST ABD PEL W CON, 01/11/2021, 12:27. [facility], CT, CT HEAD/BRAIN WO CON, 01/11/2021, 12:27. FINDINGS: Image quality: Excellent. Bones: At the superior aspect of this study, there is a subacute appearing T4 fracture, with approximately 20% loss of height superiorly. Mild posterior displacement of fracture fragments can be seen. No additional fractures or dislocations. Visualized superior ribs are intact. Degenerative changes are seen, with moderate disc space narrowing at C4-C5, C5-C6, and C6-C7. Focal degenerative change is seen involving the C1-C2 interface anteriorly. Milder degenerative changes are seen elsewhere. Soft tissues: Prevertebral soft tissues are normal in thickness. No paravertebral hematomas. No apical pneumothoraces. Atherosclerotic calcification is noted. At least 1 calcified granuloma can be seen at the right lung apex. IMPRESSION: There is a subacute appearing T4 fracture noted. No additional displaced fractures can be seen. Cervical spine degenerative changes are seen, which are most prominent inferiorly. Dictated by: Colin Christiansen M.D. on 01/11/2021 at 11:59 Approved by: Colin Christiansen M.D. on 01/11/2021 at 12:03
--- NOTE | 2021-01-11 12:52 | ED_ITS ---
HPI - Trauma General Chief Complaint: Trauma Stated Complaint: Fell off ladder, expieriencing chest + rib pain Time Seen by Provider: 01/11/21 12:29 Source: patient, family and EMS Mode of arrival: EMS Limitations: no limitations History of Present Illness HPI narrative: The patient elderly 80-year-old who presents as a modified trauma. She and her are moving she was up on a step stool any attic about 8 ft up when she fell landing on her left side and back. EMS was immediately called. She did not lose consciousness. She is on aspirin daily but no other his anticoagulation. She is currently is a backboard in C-spine precautions. She denies numbness or tingling. Or complaining of pain in her left ribs only. MD complaint: fall Onset (ago): minute(s) Loss of Consciousness: no Related Data Home Medications Medication Instructions Recorded Confirmed aspirin 81 mg tablet,delayed 81 mg PO DAILY 08/12/19 01/11/21 release diphenhydramine HCl [Benadryl] 25 mg PO BEDTIME PRN 01/11/21 01/11/21 Previous Rx's Medication Instructions Recorded calcium carbonate-vitamin D3 1 tab PO BID #180 tab 06/13/17 [Oyster Shell Calcium-Vit D3] albuterol sulfate 90 mcg/actuation 2 puff INHALATION Q4-6HP PRN #3 ea 05/22/18 aerosol inhaler citalopram 20 mg tablet 20 mg PO QDAY #90 tab 01/29/19 fluticasone 250 mcg-salmeterol 50 1 inh INHALATION BID PRN #180 each 08/12/19 mcg/dose blistr powdr for inhalation ezetimibe 10 mg tablet 10 mg PO DAILY #90 tab 06/03/20 lancets percision extra #100 each 06/03/20 lisinopril 2.5 mg tablet 2.5 mg PO DAILY #90 tab 06/03/20 metformin 1,000 mg tablet 1,000 mg PO BID #180 tab 06/03/20 glipizide 10 mg tablet, extended 10 mg PO DAILY #90 tab 08/12/20 release 24 hr rosuvastatin 40 mg tablet 40 mg PO HS #90 tab 09/05/20 [Test Strips] #250 ea 09/07/20 pioglitazone 15 mg tablet 15 mg PO DAILY #90 tab 10/07/20 Allergies Allergy/AdvReac Type Severity Reaction Status Date / Time doxycycline Allergy Mild BLISTERS Verified 01/11/21 13:05 acarbose AdvReac Severe gas; Verified 01/11/21 13:05 belching sucralfate AdvReac Severe Nausea Verified 01/11/21 13:05 Review of Systems Review of Systems ROS Unobtainable: All systems reviewed & are unremarkable except as noted in HPI and below Constitutional Constitutional: Denies chills, Denies fever(s), Denies lethargy and Denies weakness ENT Ears, Nose, Mouth, and Throat: Denies dizziness Cardiovascular Cardiovascular: Reports chest pain (Left side), Denies syncope, Denies irregular heart rhythm, Denies lightheadedness, Denies palpitations, Denies dyspnea, Den ies dyspnea on exertion and Denies orthopnea Respiratory Respiratory: Denies cough, Denies dyspnea, Denies dyspnea on exertion and Denies wheezing Gastrointestinal Gastrointestinal: Denies abdominal pain, Denies change in bowel habits, Denies diarrhea, Denies nausea and Denies vomiting Musculoskeletal Musculoskeletal: Denies back pain and Denies myalgias Integumentary/Breasts Skin/Breast: Denies pruritus, Denies erythema, Denies rash and Denies wounds Neurologic Neurologic: Denies dizziness, Denies syncope and Denies weakness Endocrine Endocrine: Denies palpitations Allergic/Immunologic Allergic/Immunologic: Denies wheezing Patient History Medical History (Updated 01/11/21 @ 16:58 by Joy Garcia DO) Asthma CAD (coronary artery disease) Depression Diabetes mellitus Hemorrhoids History of open fracture Hyperlipidemia Hypertension [place] (myocardial infarction) (11/2008) Open bimalleolar fracture of right ankle (11/29/17) Osteoporosis Vaginal candidiasis Surgical History History of heart artery stent (11/2008) History of open reduction and internal fixation (ORIF) procedure (11/29/17) History of tonsillectomy (1961) Status post appendectomy (1960) Status post Tyler fundoplication (2001) Family History Father Alcoholic Stroke Hypertension Brother Leukemia Mother [place] (myocardial infarction) Heart disease Sister Heart disease Sister Alzheimer's disease Sister No problems noted. Brother No problems noted. Family/Other Age: 58 Alcoholic Family/Other Age: 56 Hyperlipidemia Family/Other Age: 55 Hyperlipidemia Social History marital status: household members: spouse occupational status: previously employed Smoking Status: Never smoker second hand exposure: Yes (I was for 42 years. ) alcohol intake: never substance use type: does not use Smoking Status: Never smoker Substance Use Type: does not use Exam Initial Vital Signs Initial Vital Signs: Vital Signs Temperature 98.2 F 01/11/21 12:40 Pulse Rate 95 H 01/11/21 12:40 Respiratory Rate 14 01/11/21 12:40 Blood Pressure 116/56 L 01/11/21 12:40 Pulse Oximetry 95 01/11/21 12:40 GENERAL: Alert well-appearing 80-year-old HEENT: Head normocephalic,, EOMI, pupils reactive, face symmetric, moist mucous membranes, no hemotympanum, no septal hematoma NECK: C-collar in sign CARDIOVASCULAR: Regular rate and rhythm without murmurs, rubs or gallops. RESPIRATORY: Breath sounds equal bilaterally, no wheezes rales or rhonchi. No crepitations, no subcutaneous air, chest is nontender, no signs of trauma ABDOMEN: Soft, nontender. Normoactive bowel sounds all 4 quadrants. No guarding or rebound. BACK: Nontender vertebrae, no step-offs, no contusions PELVIS: stable. EXTREMITIES: Normal range of motion, no clubbing or edema. Right upper extremity: Within normal limits Left upper extremity: Within normal limits Right lower extremity: Within normal limits Left lower extremity:Within normal limits NEUROLOGICAL: Cranial nerves II through XII grossly intact. Sensation in lower extremities intact SKIN: small abrasion noted on her right elbow. Left ankle but actually has quite a bit of contusion however patient states that is old from the vacuum casting cleaner fell on her. Small contusion noted on left anterior chest. Course Orders Ordered: ED Orders 01/11/21 12:30 CT head/brain wo con Stat 01/11/21 12:38 CT cervical spine wo con Stat CT chest abd pel w con Stat 01/11/21 13:20 COVID19 - ADMIT (UI SOFTWARE DEVELOPER swab/PCR) Stat Complete Blood Count AUTO DIFF Stat Comprehensive Metabolic Panel Stat Lipase Stat Troponin & CK Cardiac Panel Stat Acetaminophen (Acetaminophen 325 Mg Tablet) 650 mg PO TID [facility] Albuterol (Albuterol Hfa Mdi 60 Puff/8 Gm Inhaler) 2 puff INH Q4H PRN PRN Reason: shortness of breath Aspirin (Aspirin Ec 81 Mg Tablet) 81 mg PO DAILY [facility] Bisacodyl (Bisacodyl 5 Mg Tablet) 10 mg PO BID PRN PRN Reason: Constipation Citalopram Hydrobromide (Citalopram 10 Mg Tablet) 20 mg PO DAILY [facility] Dextrose (Dextrose 50 % In Water 25 Gm/50 Ml Syringe) 25 gm IV PRN PRN; Protocol PRN Reason: Hypoglycemia Docusate Sodium (Docusate 250 Mg Capsule) 250 mg PO BEDTIME [facility] Ezetimibe (Ezetimibe 10 Mg Tablet) 10 mg PO DAILY [facility] Enoxaparin Sodium (Enoxaparin 40 Mg/0.4 Ml Syringe) 40 mg SUBCUT DAILY [facility] Glipizide (Glipizide Xl 5 Mg Tab) 10 mg PO DAILY [facility] Insulin Aspart (Insulin Aspart 100 Unit/Ml Insuln Pen) 0 unit SUBCUT ACHS TERRIE; Protocol Metformin HCl (Metformin Hcl 500 Mg Tablet) 1,000 mg PO BID [facility] Morphine Sulfate (Morphine 2 Mg/Ml Inj) 2 mg IV Q4HR PRN PRN Reason: Pain, Severe (7-10) Last Admin: 01/11/21 18:22 Dose: 2 mg Documented by: BETHANIE Naloxone HCl (Naloxone 0.4 Mg/Ml Vial) 0.2 mg IV Q2MIN PRN PRN Reason: Opiate Reversal Ondansetron HCl (Ondansetron 4 Mg/2 Ml Inj) 4 mg IV Q4HR PRN PRN Reason: Nausea And Vomiting Oxycodone HCl (Oxycodone Ir 5 Mg Tablet) 5 mg PO Q4HR PRN PRN Reason: Pain, Moderate (4-6) Pioglitazone HCl (Pioglitazone 15 Mg Tablet) 15 mg PO DAILY [facility] Polyethylene Glycol (Polyethylene Glycol 3350 17 Gm Powd.Pack) 17 gm PO DAILY [facility] Rosuvastatin Calcium (Rosuvastatin 10 Mg Tablet) 40 mg PO BEDTIME [facility] Zolpidem Tartrate (Zolpidem 5 Mg Tablet) 5 mg PO BEDTIME PRN PRN Reason: Sleep Discontinued Medications Sodium Chloride (Normal Saline 0.9%) 1,000 mls @ 1,000 mls/hr IV BOLUS ONE Stop: 01/11/21 15:46 Last Infusion: 01/11/21 16:32 Dose: 0 mls/hr Documented by: Admin: 01/11/21 14:52 Dose: 1,000 mls/hr Documented by: AVRIL Lisinopril (Lisinopril 5 Mg Tablet) 2.5 mg PO DAILY TERRIE Morphine Sulfate (Morphine 2 Mg/Ml Inj) 2 mg IV NOW ONE Stop: 01/11/21 15:49 Last Admin: 01/11/21 15:55 Dose: 2 mg Documented by: AVRIL Ondansetron HCl (Ondansetron 4 Mg/2 Ml Inj) 4 mg IV NOW ONE Stop: 01/11/21 14:48 Last Admin: 01/11/21 14:52 Dose: 4 mg Documented by: AVRIL Vital Signs Vital signs: Vital Signs - 8 hr 01/11/21 12:40 01/11/21 12:42 01/11/21 12:44 Temperature 98.2 F Pulse Rate 95 H 92 H 91 H Respiratory Rate 14 Blood Pressure 116/56 L Pulse Oximetry 95 96 96 01/11/21 12:46 01/11/21 12:50 01/11/21 12:52 Temperature Pulse Rate 94 H 98 H 94 H Respiratory Rate 13 Blood Pressure 128/70 Pulse Oximetry 96 96 01/11/21 12:54 01/11/21 12:55 01/11/21 12:56 Temperature Pulse Rate 91 H 91 H 91 H Respiratory Rate 12 15 14 Blood Pressure 140/71 Pulse Oximetry 97 94 01/11/21 12:58 01/11/21 13:00 01/11/21 13:05 Temperature Pulse Rate 90 91 H 92 H Respiratory Rate 13 13 16 Blood Pressure 152/69 H 136/56 L Pulse Oximetry 95 95 96 01/11/21 13:10 01/11/21 13:15 01/11/21 13:20 Temperature Pulse Rate 92 H 95 H 96 H Respiratory Rate 16 14 17 Blood Pressure 137/71 134/70 134/71 Pulse Oximetry 96 96 96 01/11/21 13:25 01/11/21 13:26 01/11/21 13:30 Temperature 98.2 F Pulse Rate 97 H 95 H 98 H Respiratory Rate 15 14 17 Blood Pressure 139/74 116/56 L 136/74 Pulse Oximetry 97 97 95 01/11/21 13:35 01/11/21 13:40 01/11/21 13:45 Temperature Pulse Rate 97 H 97 H 97 H Respiratory Rate 18 19 21 Blood Pressure 138/76 138/83 Pulse Oximetry 96 99 98 01/11/21 13:46 01/11/21 13:50 01/11/21 13:55 Temperature Pulse Rate 97 H 97 H 99 H Respiratory Rate 15 15 17 Blood Pressure 169/75 H 149/74 H 140/73 Pulse Oximetry 97 97 88 L 01/11/21 14:00 01/11/21 14:05 01/11/21 14:10 Temperature Pulse Rate 97 H 97 H 99 H Respiratory Rate 17 12 12 Blood Pressure 140/74 146/76 H 146/77 H Pulse Oximetry 97 97 96 01/11/21 14:15 01/11/21 14:20 01/11/21 14:25 Temperature Pulse Rate 98 H 99 H 97 H Respiratory Rate 13 13 14 Blood Pressure 147/81 H 134/76 138/75 Pulse Oximetry 97 96 95 01/11/21 14:30 01/11/21 14:35 01/11/21 14:40 Temperature Pulse Rate 97 H 96 H 96 H Respiratory Rate 18 15 14 Blood Pressure 133/69 127/70 120/67 Pulse Oximetry 96 96 96 01/11/21 14:45 01/11/21 14:46 01/11/21 14:48 Temperature Pulse Rate 65 107 H 100 H Respiratory Rate 28 H 25 H 20 Blood Pressure 76/45 L 113/61 Pulse Oximetry 96 95 92 01/11/21 14:50 01/11/21 14:55 01/11/21 15:00 Temperature Pulse Rate 100 H 101 H 102 H Respiratory Rate 14 18 16 Blood Pressure 116/64 91/56 L 116/62 Pulse Oximetry 95 94 95 01/11/21 15:05 01/11/21 15:06 01/11/21 15:10 Temperature Pulse Rate 101 H 105 H 101 H Respiratory Rate 23 20 16 Blood Pressure 101/43 L 111/62 Pulse Oximetry 95 94 01/11/21 15:15 01/11/21 15:20 01/11/21 15:25 Temperature Pulse Rate 100 H 101 H 101 H Respiratory Rate 22 20 13 Blood Pressure 113/73 117/73 121/71 Pulse Oximetry 95 95 94 01/11/21 15:30 01/11/21 15:35 01/11/21 15:40 Temperature Pulse Rate 103 H 104 H 104 H Respiratory Rate 13 13 14 Blood Pressure 131/73 138/63 129/68 Pulse Oximetry 95 93 95 01/11/21 15:45 01/11/21 15:50 01/11/21 15:55 Temperature Pulse Rate 105 H 106 H 106 H Respiratory Rate 15 15 15 Blood Pressure 129/64 119/65 118/61 Pulse Oximetry 93 92 92 01/11/21 16:00 01/11/21 16:05 01/11/21 16:10 Temperature Pulse Rate 106 H 106 H 106 H Respiratory Rate 15 14 15 Blood Pressure 106/58 L 109/59 L 110/58 L Pulse Oximetry 92 90 L 91 01/11/21 16:15 01/11/21 16:20 01/11/21 16:25 Temperature Pulse Rate 108 H 107 H 108 H Respiratory Rate 15 14 17 Blood Pressure 107/58 L 100/59 L 92/55 L Pulse Oximetry 92 92 91 01/11/21 16:26 Temperature Pulse Rate 108 H Respiratory Rate 18 Blood Pressure 101/55 L Pulse Oximetry 92 MDM - Trauma Lab Data Attestation: I reviewed the patient's lab results. Result diagrams: 01/11/21 13:20 01/11/21 13:20 Labs: Lab Results 01/11/21 01/11/21 01/11/21 Range/Units 13:20 13:20 13:20 WBC 4.7 (4.5-11.0) X10^3/uL RBC 3.64 L (4.0-5.2) X10^6/uL Hgb 10.3 L (12.0-16.0) g/dL Hct 31.7 L (36-46) % MCV 87.1 (80-100) fL MCH 28.4 (26-34) PG MCHC 32.6 (30-36) % RDW 15.2 H (11.6-14.8) % Plt Count 133 L (150-400) X10^3/uL Neut % (Auto) 71.0 (50-75) % Lymph % (Auto) 16.0 L (25-40) % [place] % (Auto) 6.2 (3-14) % Eos % (Auto) 6.0 H (2-4) % Baso % (Auto) 0.8 (0-2) % Neut # (Auto) 3400 (0918-4860) /uL Lymph # (Auto) 800 L (0912-7136) /uL [place] # (Auto) 300 (0-900) /uL Eos # (Auto) 300 (0-450) /uL Baso # (Auto) 0 (0-100) /uL Sodium 135 L (137-145) mmol/L Potassium 4.6 (3.4-5.1) mmol/L Chloride 103 (98-107) mmol/L Carbon Dioxide 25 (22-32) mmol/L BUN 14 (7-17) mg/dL Creatinine 0.87 (0.52-1.04) mg/dL Estimated GFR > 60.0 (>60) mL/min BUN/Creatinine Ratio 16.1 (6-22) Glucose 211 H (80-110) mg/dL Calcium 9.6 (8.4-10.2) mg/dL Total Bilirubin 0.5 (0.2-1.3) mg/dL AST 58 H (14-36) IU/L ALT 37 H (<35) IU/L Alkaline Phosphatase 54 (38-126) U/L Total Creatine Kinase 163 H (30-135) U/L CK-MB (CK-2) 2.79 H (<2.37) ng/mL CK-MB (CK-2) Rel Index 1.7 (1.5-5.0) % Troponin I < 0.012 (0.01-0.034) ng/mL Total Protein 6.6 (6.3-8.2) g/dL Albumin 3.7 (3.5-5.0) g/dL Globulin 2.9 (1.7-4.1) g/dL Albumin/Globulin Ratio 1.3 (1.0-2.8) Lipase 285 (23-300) U/L SARS-CoV-2 (PCR) Negative (Negative) Urine Dip Bedside Urine Glucose 1000 mg/dl Bedside Urine Bilirubin - Negative Bedside Urine Ketone - Negative Urine Specific [place] 1.010 Bedside Urine Occult Blood ++ Bedside Urine pH 6.0 Bedside Urine Protein - Negative Bedside Urine Urobilinogen - Negative Bedside Urine Nitrite - Negative Bedside Urine Leukocytes - Negative Esterase Imaging Data CT scan - head: Radiologist's Impression: PROCEDURE: CT HEAD/BRAIN WO CON INDICATIONS: fall 8ft TECHNIQUE: Noncontrast 4.5 mm thick angled axial sections acquired from the foramen magnum to the vertex, with coronal and sagittal reformats. For radiation dose reduction, the following was used: automated exposure control, adjustment of mA and/or kV according to patient size. COMPARISON: [facility], CT, CT HEAD/BRAIN WO CON, 05/19/2020, 14:12. FINDINGS: Image quality: Excellent. CSF spaces: Basal cisterns are patent. No extra-axial fluid collections. The ventricles are symmetric in size and shape. Brain: No intracranial bleeds or masses. There is cerebral volume loss for age, with resultant ventricular and sulcal prominence. There are moderate periventricular and deep white matter chronic small vessel ischemic changes. There is intracranial internal carotid artery atherosclerosis. Skull and face: Calvarium and visualized facial bones appear intact, without suspicious lesions. Subgaleal hematoma, left occipital region. Sinuses: Chronic ethmoid sinusitis with subtotal opacification of the anterior ethmoids and patchy opacification of the posterior ethmoids and some bony remodeling. Small air-fluid level in the left maxillary sinus. Left maxillary sinus mucosal thickening. IMPRESSION: 1. Age related volume loss and moderate small vessel ischemic change. 2. No evidence acute stroke, hemorrhage, or mass. 3. No evidence of significant intracranial sequelae of acute trauma. 4. Left posterior occipital subgaleal hematoma. 5. Acute on chronic sinusitis. Dictated by: Anand Gomez M.D. on 01/11/2021 at 12:46 CT - cervical spine: Radiologist's Impression: PROCEDURE: CT CERVICAL SPINE WO CON INDICATIONS: fall 8 ft TECHNIQUE: Noncontrast 3 mm thick sections acquired from the skull base to the T4 level. Sagittal and coronal reformats were then constructed. For radiation dose reduction, the following was used: automated exposure control, adjustment of mA and/or kV according to patient size. COMPARISON: [facility], CT, CT CHEST ABD PEL W CON, 01/11/2021, 12:27. [facility], CT, CT HEAD/BRAIN WO CON, 01/11/2021, 12:27. FINDINGS: Image quality: Excellent. Bones: At the superior aspect of this study, there is a subacute appearing T4 fracture, with approximately 20% loss of height superiorly. Mild posterior displacement of fracture fragments can be seen. No additional fractures or dislocations. Visualized superior ribs are intact. Degenerative changes are seen, with moderate disc space narrowing at C4-C5, C5- C6, and C6-C7. Focal degenerative change is seen involving the C1-C2 interface anter iorly. Milder degenerative changes are seen elsewhere. Soft tissues: Prevertebral soft tissues are normal in thickness. No paravertebral hematomas. No apical pneumothoraces. Atherosclerotic calcification is noted. At least 1 calcified granuloma can be seen at the right lung apex. IMPRESSION: There is a subacute appearing T4 fracture noted. No additional displaced fractures can be seen. Cervical spine degenerative changes are seen, which are most prominent inferiorly. Dictated by: Colin Christiansen M.D. on 01/11/2021 at 11:59 CT scan - abdomen/pelvis: Radiologist's Impression: PROCEDURE: CT CERVICAL SPINE WO CON INDICATIONS: fall 8 ft TECHNIQUE: Noncontrast 3 mm thick sections acquired from the skull base to the T4 level. Sagittal and coronal reformats were then constructed. For radiation dose reduction, the following was used: automated exposure control, adjustment of mA and/or kV according to patient size. COMPARISON: [facility], CT, CT CHEST ABD PEL W CON, 01/11/2021, 12:27. [facility], CT, CT HEAD/BRAIN WO CON, 01/11/2021, 12:27. FINDINGS: Image quality: Excellent. Bones: At the superior aspect of this study, there is a subacute appearing T4 fracture, with approximately 20% loss of height superiorly. Mild posterior displacement of fracture fragments can be seen. No additional fractures or dislocations. Visualized superior ribs are intact. Degenerative changes are seen, with moderate disc space narrowing at C4-C5, C5- C6, and C6-C7. Focal degenerative change is seen involving the C1-C2 interface anteriorly. Milder degenerative changes are seen elsewhere. Soft tissues: Prevertebral soft tissues are normal in thickness. No paraverte bral hematomas. No apical pneumothoraces. Atherosclerotic calcification is noted. At least 1 calcified granuloma can be seen at the right lung apex. IMPRESSION: There is a subacute appearing T4 fracture noted. No additional displaced fractures can be seen. Cervical spine degenerative changes are seen, which are most prominent inferiorly. Dictated by: Colin Christiansen M.D. on 01/11/2021 at 11:59 ECG Data Attestation: I personally reviewed and interpreted this ECG as follows: Interpretation: Sinus rhythm rate 102 p.r. interval 220 QRS 86 QTC 450 MDM Narrative Medical decision making narrative: Patient's CT does confirm transverse process fractures L2, L4-L5 and a compression fracture on his T4. She is neurologically intact and fact really was not tender over her vertebrae and still is complaining of pain behind her left breast. She has a small contusion on her left chest as well. Blood work is overall reassuring slightly more anemic than she was a year ago. Patient suddenly got extremely nauseous blood pressure was found to be hypotensive she is given fluids pain med and nausea medication. Patient was reassessed an ambulation trial attempted however she continued to be extremely dizzy and have severe pain. At this time or command admitting for pain control. 1430 Dr. Baldwin updated on pain should symptoms test results at this time lumbar corset may be beneficial along with avoiding bending and twisting. Can follow up as outpatient. 1640-Dr. Keyes surgery updated on patient's symptoms test results at this time agrees with admission for pain control but requested admitting to h ospitalist 1650 Dr. Guy updated on patient's symptoms test results and recommendations of specialist agrees with admission Patient's pain is in her left anterior chest there is a small contusion there. She did not have pain upon palpation to her spine though those are where her fractures are. However when she stood she did have severe pain. She is neurologically intact. Discharge Plan Departure Patient Disposition: Admitted as Observation Clinical Impression: Fracture of transverse process of lumbar vertebra Qualifiers: Encounter type: initial encounter Fracture type: closed Qualified Code(s): S32.009A - Unspecified fracture of unspecified lumbar vertebra, initial encounter for closed fracture Compression fracture of thoracic vertebra Qualifiers: Encounter type: initial encounter Thoracic vertebra fracture level: T4 Qualified Code(s): S22.040A - Wedge compression fracture of fourth thoracic ve rtebra, initial encounter for closed fracture Admit Date/Time: 01/11/21 16:58 Admit Provider: Carlos Guy
[2021-01-11 13:28] LABS: Add Manual Diff / Slide Review NO; Basophils Absolute Auto 0 /uL (0-100); Basophils Percent Auto 0.8 % (0-2); Eosinophils Absolute Auto 300 /uL (0-450); Hematocrit 31.7 % (36-46); Hemoglobin 10.3 g/dL (12.0-16.0); Lymphocytes Absolute Auto 800 /uL (1100-4500); Mean Corpuscular HGB Conc 32.6 % (30-36); Mean Corpuscular Hemoglobin 28.4 PG (26-34); Mean Corpuscular Volume 87.1 fL (80-100); Monocytes Absolute Auto 300 /uL (0-900); Monocytes Percent Auto 6.2 % (3-14); Neutrophils Absolute Auto 3400 /uL (1500-7000); Platelet Count 133 X10^3/uL (150-400); Red Blood Cell Count 3.64 X10^6/uL (4.0-5.2); Red Cell Distribution Width 15.2 % (11.6-14.8); White Blood Cell Count 4.7 X10^3/uL (4.5-11.0)
--- NOTE | 2021-01-11 13:34 | PC.NURSE ---
see trauma activation flow sheet
[2021-01-11 13:52] LABS: Alanine Aminotransferase 37 IU/L (<35); Albumin 3.7 g/dL (3.5-5.0); Albumin Globulin Ratio 1.3 (1.0-2.8); Alkaline Phosphatase 54 U/L (38-126); Aspartate Aminotransferase 58 IU/L (14-36); BUN Creatinine Ratio 16.1 (6-22); Bilirubin Total 0.5 mg/dL (0.2-1.3); Blood Urea Nitrogen 14 mg/dL (7-17); Calcium 9.6 mg/dL (8.4-10.2); Carbon Dioxide 25 mmol/L (22-32); Chloride 103 mmol/L (98-107); Creatine Kinase 163 U/L (30-135); Estimated Glomerular Filt Rate > 60.0 mL/min (>60); Globulin 2.9 g/dL (1.7-4.1); Glucose 211 mg/dL (80-110); Lipase 285 U/L (23-300); Sodium 135 mmol/L (137-145); Total Protein 6.6 g/dL (6.3-8.2)
[2021-01-11 13:53] LABS: Potassium 4.6 mmol/L (3.4-5.1)
[2021-01-11 14:04] LABS: Troponin I < 0.012 ng/mL (0.01-0.034)
[2021-01-11 14:08] LABS: CKMB % Relative Index 1.7 % (1.5-5.0); Creatine Kinase MB 2.79 ng/mL (<2.37); HEMOLYSIS 28 (0-50)
[2021-01-11 14:30] LABS: COVID19 - ADMIT (NP swab/PCR) Negative (Negative)
[2021-01-11] MEDS: SODIUM CHLORIDE 0.9% 1,000 ML 1000 ML IV (14:52)
[2021-01-11] MEDS: ONDANSETRON 4 MG/2 ML INJ IV (14:52)
[2021-01-11] MEDS: MORPHINE 2 MG/ML INJ IV ×2 (15:55→18:22)
--- NOTE | 2021-01-11 16:48 | PC.NURSE ---
Attempted to ambulate and assist with walking but patient stated that she was dizzy and sat back on the bed. Attempted to walk a second time but did not get any further than the first attempt. Pt stated dizziness again and began to lean to the left and was leaning on her husbands arm. I helped her to sit upright and we were able to get up and side step (inches) towards the head of the bed so that she could get into bed comfortably.
--- NOTE | 2021-01-11 18:03 | P.HP_ITS ---
History of Present Illness History of Present Illness Date Patient Seen: 01/11/21 Time Patient Seen: 17:30 Date of Onset of Symptoms: 01/11/21 Chief complaint: Fell off ladder, experiencing chest + rib pain Narrative: Patient is a 80-year-old female with history type 2 diabetes, hypertension, hyperlipidemia, asthma brought to emergency department due to fall from ladder. Patient clearly recalls event leading to fall. She states she was standing on top rung of an 8 ft ladder to get in the attic and was trying to adjust her footing when ladder slipped from under her causing her to fall backwards to the ground. She denies LOC. Her witnessed the event and called 911 at patient's direction. Her CT scan showed acute T4 compression fracture, acute transverse process fracture of L1, L2 and L4, old fractures of T7 and T11. She has old rib fractures on chest CT. Head CT showed left posterior occipital subgaleal hematoma but no intracerebral bleed. She has moderate anemia. EKG showed sinus tachycardia with first-degree AV block. Patient is complaining of nausea and severe pain in her back. She denies chest pain, palpitations, dyspnea, LOC or loss of vision. Patient endorses poor balance with prior history of falls. However she does not use an assist device such as cane or walker. Patient History Medical History (Updated 01/11/21 @ 16:58 by Joy Garcia DO) Asthma CAD (coronary artery disease) Depression Diabetes mellitus Hemorrhoids History of open fracture Hyperlipidemia Hypertension LA (myocardial infarction) (11/2008) Open bimalleolar fracture of right ankle (11/29/17) Osteoporosis Vaginal candidiasis Surgical History History of heart artery stent (11/2008) History of open reduction and internal fixation (ORIF) procedure (11/29/17) History of tonsillectomy (1961) Status post appendectomy (1960) Status post Tyler fundoplication (2001) Family & Social History Family History Father Alcoholic Stroke Hypertension Brother Leukemia Mother LA (myocardial infarction) Heart disease Sister Heart disease Sister Alzheimer's disease Sister No problems noted. Brother No problems noted. Family/Other Age: 58 Alcoholic Family/Other Age: 56 Hyperlipidemia Family/Other Age: 55 Hyperlipidemia Social History: household members spouse Safety & Behavioral: Feels Safe in Current Yes Environment Been Physically Hurt or No Threatened By a Person Tobacco & Substance use: Smoking Status Never smoker alcohol intake never alcohol intake frequency 0-2 drinks per day Substance Use Type does not use Meds Home Medications and Allergies Home Medications Medication Instructions Recorded Confirmed Type calcium carbonate-vitamin D3 1 tab PO BID #180 tab 06/13/17 01/11/21 Rx [Oyster Shell Calcium-Vit D3] albuterol sulfate 90 mcg/actuation 2 puff INHALATION Q4-6HP PRN #3 ea 05/22/18 01/11/21 Rx aerosol inhaler citalopram 20 mg tablet 20 mg PO QDAY #90 tab 01/29/19 01/11/21 Rx aspirin 81 mg tablet,delayed 81 mg PO DAILY 08/12/19 01/11/21 History release fluticasone 250 mcg-salmeterol 50 1 inh INHALATION BID PRN #180 each 08/12/19 01/11/21 Rx mcg/dose blistr powdr for inhalation ezetimibe 10 mg tablet 10 mg PO DAILY #90 tab 06/03/20 01/11/21 Rx lancets percision extra #100 each 06/03/20 08/12/20 Rx lisinopril 2.5 mg tablet 2.5 mg PO DAILY #90 tab 06/03/20 01/11/21 Rx metformin 1,000 mg tablet 1,000 mg PO BID #180 tab 06/03/20 08/12/20 Rx glipizide 10 mg tablet, extended 10 mg PO DAILY #90 tab 08/12/20 01/11/21 Rx release 24 hr rosuvastatin 40 mg tablet 40 mg PO HS #90 tab 09/05/20 01/11/21 Rx [Test Strips] #250 ea 09/07/20 Rx pioglitazone 15 mg tablet 15 mg PO DAILY #90 tab 10/07/20 01/11/21 Rx diphenhydramine HCl [Benadryl] 25 mg PO BEDTIME PRN 01/11/21 01/11/21 History Allergies Allergy/AdvReac Type Severity Reaction Status Date / Time doxycycline Allergy Mild BLISTERS Verified 01/11/21 13:05 acarbose AdvReac Severe gas; Verified 01/11/21 13:05 belching sucralfate AdvReac Severe Nausea Verified 01/11/21 13:05 Review of Systems Review of Systems ROS: Yes All systems reviewed with the patient and are negative except as otherwise documented Exam Vital Signs (past 8 hours): - 01/11/21 12:40 01/11/21 12:42 01/11/21 12:44 Temperature 98.2 F Pulse Rate 95 H 92 H 91 H Respiratory Rate 14 Blood Pressure 116/56 L Pulse Oximetry 95 96 96 01/11/21 12:46 01/11/21 12:50 01/11/21 12:52 Temperature Pulse Rate 94 H 98 H 94 H Respiratory Rate 13 Blood Pressure 128/70 Pulse Oximetry 96 96 01/11/21 12:54 01/11/21 12:55 01/11/21 12:56 Temperature Pulse Rate 91 H 91 H 91 H Respiratory Rate 12 15 14 Blood Pressure 140/71 Pulse Oximetry 97 94 01/11/21 12:58 01/11/21 13:00 01/11/21 13:05 Temperature Pulse Rate 90 91 H 92 H Respiratory Rate 13 13 16 Blood Pressure 152/69 H 136/56 L Pulse Oximetry 95 95 96 01/11/21 13:10 01/11/21 13:15 01/11/21 13:20 Temperature Pulse Rate 92 H 95 H 96 H Respiratory Rate 16 14 17 Blood Pressure 137/71 134/70 134/71 Pulse Oximetry 96 96 96 01/11/21 13:25 01/11/21 13:26 01/11/21 13:30 Temperature 98.2 F Pulse Rate 97 H 95 H 98 H Respiratory Rate 15 14 17 Blood Pressure 139/74 116/56 L 136/74 Pulse Oximetry 97 97 95 01/11/21 13:35 01/11/21 13:40 01/11/21 13:45 Temperature Pulse Rate 97 H 97 H 97 H Respiratory Rate 18 19 21 Blood Pressure 138/76 138/83 Pulse Oximetry 96 99 98 01/11/21 13:46 01/11/21 13:50 01/11/21 13:55 Temperature Pulse Rate 97 H 97 H 99 H Respiratory Rate 15 15 17 Blood Pressure 169/75 H 149/74 H 140/73 Pulse Oximetry 97 97 88 L 01/11/21 14:00 01/11/21 14:05 01/11/21 14:10 Temperature Pulse Rate 97 H 97 H 99 H Respiratory Rate 17 12 12 Blood Pressure 140/74 146/76 H 146/77 H Pulse Oximetry 97 97 96 01/11/21 14:15 01/11/21 14:20 01/11/21 14:25 Temperature Pulse Rate 98 H 99 H 97 H Respiratory Rate 13 13 14 Blood Pressure 147/81 H 134/76 138/75 Pulse Oximetry 97 96 95 01/11/21 14:30 01/11/21 14:35 01/11/21 14:40 Temperature Pulse Rate 97 H 96 H 96 H Respiratory Rate 18 15 14 Blood Pressure 133/69 127/70 120/67 Pulse Oximetry 96 96 96 01/11/21 14:45 01/11/21 14:46 01/11/21 14:48 Temperature Pulse Rate 65 107 H 100 H Respiratory Rate 28 H 25 H 20 Blood Pressure 76/45 L 113/61 Pulse Oximetry 96 95 92 01/11/21 14:50 01/11/21 14:55 01/11/21 15:00 Temperature Pulse Rate 100 H 101 H 102 H Respiratory Rate 14 18 16 Blood Pressure 116/64 91/56 L 116/62 Pulse Oximetry 95 94 95 01/11/21 15:05 01/11/21 15:06 01/11/21 15:10 Temperature Pulse Rate 101 H 105 H 101 H Respiratory Rate 23 20 16 Blood Pressure 101/43 L 111/62 Pulse Oximetry 95 94 01/11/21 15:15 01/11/21 15:20 01/11/21 15:25 Temperature Pulse Rate 100 H 101 H 101 H Respiratory Rate 22 20 13 Blood Pressure 113/73 117/73 121/71 Pulse Oximetry 95 95 94 01/11/21 15:30 01/11/21 15:35 01/11/21 15:40 Temperature Pulse Rate 103 H 104 H 104 H Respiratory Rate 13 13 14 Blood Pressure 131/73 138/63 129/68 Pulse Oximetry 95 93 95 01/11/21 15:45 01/11/21 15:50 01/11/21 15:55 Temperature Pulse Rate 105 H 106 H 106 H Respiratory Rate 15 15 15 Blood Pressure 129/64 119/65 118/61 Pulse Oximetry 93 92 92 01/11/21 16:00 01/11/21 16:05 01/11/21 16:10 Temperature Pulse Rate 106 H 106 H 106 H Respiratory Rate 15 14 15 Blood Pressure 106/58 L 109/59 L 110/58 L Pulse Oximetry 92 90 L 91 01/11/21 16:15 01/11/21 16:20 01/11/21 16:25 Temperature Pulse Rate 108 H 107 H 108 H Respiratory Rate 15 14 17 Blood Pressure 107/58 L 100/59 L 92/55 L Pulse Oximetry 92 92 91 01/11/21 16:26 01/11/21 17:02 01/11/21 17:04 Temperature Pulse Rate 108 H 108 H 112 H Respiratory Rate 18 21 Blood Pressure 101/55 L 106/59 L Pulse Oximetry 92 93 94 01/11/21 17:05 01/11/21 17:30 Temperature 98.7 F Pulse Rate 110 H 112 H Respiratory Rate 17 18 Blood Pressure 112/66 Pulse Oximetry 95 98 Oxygen Delivery Method Nasal Cannula Oxygen Flow Rate 2 Narrative Exam Narrative: General: Alert and communicative elderly female in mild distress HEENT: There is a left occipital hematoma, danny, EOMI Neck: No lymphadenopathy Lungs: Clear to auscultation Heart: Tachycardia with regular rhythm, no murmur Back: Tender over upper thoracic and lumbar vertebrae Extremities: There is extensive superficial bruise ears on the left and right lower legs and dorsum of left foot Neurological: A and O x3, speech is fluent, affect normal, no pronator drift, no leg drift Objective Labs Result Diagrams: 01/11/21 13:20 01/11/21 13:20 Labs: Laboratory Results - last 24 hr 01/11/21 01/11/21 01/11/21 13:20 13:20 13:20 WBC 4.7 RBC 3.64 L Hgb 10.3 L Hct 31.7 L MCV 87.1 MCH 28.4 MCHC 32.6 RDW 15.2 H Plt Count 133 L Neut % (Auto) 71.0 Lymph % (Auto) 16.0 L [place] % (Auto) 6.2 Eos % (Auto) 6.0 H Baso % (Auto) 0.8 Neut # (Auto) 3400 Lymph # (Auto) 800 L [place] # (Auto) 300 Eos # (Auto) 300 Baso # (Auto) 0 Sodium 135 L Potassium 4.6 Chloride 103 Carbon Dioxide 25 BUN 14 Creatinine 0.87 Estimated GFR > 60.0 BUN/Creatinine Ratio 16.1 Glucose 211 H Calcium 9.6 Total Bilirubin 0.5 AST 58 H ALT 37 H Alkaline Phosphatase 54 Total Creatine Kinase 163 H CK-MB (CK-2) 2.79 H CK-MB (CK-2) Rel Index 1.7 Troponin I < 0.012 Total Protein 6.6 Albumin 3.7 Globulin 2.9 Albumin/Globulin Ratio 1.3 Lipase 285 SARS-CoV-2 (PCR) Negative Assessment & Plan Assessment & Plan narrative: Patient is a 80-year-old female with history type 2 diabetes, hypertension, hyperlipidemia, asthma brought to emergency department due to fall from ladder. 1. Acute traumatic fractures of T4 and transverse process of L1, L2 and L4 -as noted patient lost balance and fell from the top rung of 8 ft ladder, no LOC, no evidence of spinal cord compromise on exam -past history of falls with evidence of old rib and vertebral fractures -admit to observation for pain control and PT/OT consult -Tylenol 650 mg t.i.d. scheduled -oxycodone 5 mg q.4 hours as needed moderate pain -morphine 2 mg IV q.4 hours as needed severe pain -docusate 250 mg HS and MiraLax q.d. for bowel regimen -PT/OT consult 2. Left posterior occipital subgaleal hematoma -no evidence of intracerebral bleed -monitor neurological status 3. Coronary artery disease, stable -history of LA and stent in 2008 -EKG without ischemia changes -continue aspirin, lipid agents per home routine 4. Type 2 diabetes -lab glucose 211 -continue oral medications except hold metformin times [address] IV contrast (resume on 01/13 dinner) -check A1c 5. Hypertension, chronic -currently borderline hypotensive and may be over controlled -hold lisinopril 2.5 mg q.d. and consider discontinuing at discharge 6. Normocytic anemia -patient has developed moderate anemia with hemoglobin of 10.3 which appears new finding relative to a normal hemoglobin of 13.4 on 05/02/2020 -check iron profile and ferritin -outpatient follow-up for anemia 7. Multinodular goiter -this was noted on CT -check TSH reflex free T4 8. Indeterminate left adrenal nodule -CT findings of 2.5 cm left adrenal nodule -further follow-up can be pursued as outpatient if needed 9. Recurrent falls -patient with history of serious falls -address any medication causes such as Benadryl which she took 2 tablets on morning of admission, consider potential excessive blood pressure lowering or hypoglycemia -PT/OT consult Admit status: Observation Code status: DNR per discussion with patient at time of admission, does not want CPR or intubation Surrogate decisionmaker:
[2021-01-11 19:55] LABS: Iron 65 ug/dL (37-170)
[2021-01-11 20:01] LABS: Ferritin 892 ng/mL (11-264)
[2021-01-11 20:05] LABS: HEMOLYSIS 86 (0-50)
[2021-01-11 20:06] LABS: Percent Iron Saturation 24 % (15-50); Total Iron Binding Capacity 274 ug/dL (265-497); Transferrin 218 mg/dL (206-381)
[2021-01-11] MEDS: ACETAMINOPHEN 325 MG TABLET 650 MG PO (20:46)
[2021-01-11] MEDS: ROSUVASTATIN 10 MG TABLET 40 MG PO (20:47)
[2021-01-11] MEDS: METFORMIN HCL 500 MG TABLET 1000 MG PO (20:47)
[2021-01-11] MEDS: DOCUSATE 250 MG CAPSULE PO (20:47)
[2021-01-11] MEDS: INSULIN ASPART 100 UNIT/ML INSULN PEN SUBCUT (20:48)
--- NOTE | 2021-01-12 00:36 | PC.NURSE ---
Addendum entered by Serena Bauer R.N. 01/12/21 06:58: States she slept well but is now complaining of 7/10 pain across upper abdomen and in left ribs; medicated with Morphine. Original Note: patient is alert and oriented; [place] and has bilateral hearing aids; not in at this time. Breath sounds CTA with RA sat of 92%. HRR. Denies nausea. BT present and abdomen is soft; reports she has not had BM since 01/09 and denies flatus. Voiding per bedpan and denies dysuria, frequency or urgency. Is able to turn self in bed. Gait not assessed at this time. Is able to move all extremities and strength is equal bilaterally. Has bruising of all extremities, left breast and left lower back. Dressing to skin tear on right elbow is CDI. Denies pain at present time except for some minimal tenderness to left lateral ribs; declines offer of pain medication. Fall risk score is high and bed alarm is activated.
[2021-01-12 03:32] VITALS: BP 99/58; PULSE 98; RESP 16; TEMP 36.5; O2SAT 92
[2021-01-12] MEDS: SODIUM CHLORIDE 0.9% FLUSH 10 ML IV ×2 (06:55→08:46)
[2021-01-12] MEDS: MORPHINE 2 MG/ML INJ IV (06:55)
[2021-01-12] MEDS: INSULIN ASPART 100 UNIT/ML INSULN PEN SUBCUT ×2 (08:21→12:37)
[2021-01-12] MEDS: CITALOPRAM 10 MG TABLET 20 MG PO (08:26)
[2021-01-12] MEDS: glipiZIDE XL 5 MG TAB 10 MG PO (08:26)
[2021-01-12] MEDS: polyethylene glycoL 3350 17 GM POWD.PACK PO (08:26)
[2021-01-12] MEDS: ENOXAPARIN 40 MG/0.4 ML SYRINGE SUBCUT (08:26)
[2021-01-12] MEDS: ACETAMINOPHEN 325 MG TABLET 650 MG PO (08:26)
[2021-01-12] MEDS: ASPIRIN EC 81 MG TABLET PO (08:26)
[2021-01-12] MEDS: EZETIMIBE 10 MG TABLET PO (08:26)
[2021-01-12] MEDS: PIOGLITAZONE 15 MG TABLET PO (08:27)
[2021-01-12 08:49] VITALS: BP 94/54; PULSE 103; RESP 18; TEMP 37.2; O2SAT 94
--- NOTE | 2021-01-12 09:30 | P.CONS_ITS ---
History of Present Illness Consult details Date Patient Seen: 01/12/21 Time Patient Seen: 09:30 Chief complaint: Fell off ladder, experiencing chest + rib pain Reason for consult: abnormal transverse colon on CT Requesting provider: Carlos Guy Narrative: Around 2-3 days of increasing abdominal pain in LLQ. No emesis, no diarrhea. Recent hemacult test was negative for occult bloods. Pain dull to cramping w/o relief until antibiotics overnight and now only sore to palpation. No previous episodes. Last colonoscopy was years ago. Mother of complication of Cdif colitis. Meds Home Medications and Allergies Home Medications Medication Instructions Recorded Confirmed Type calcium carbonate-vitamin D3 1 tab PO BID #180 tab 06/13/17 01/11/21 Rx [Oyster Shell Calcium-Vit D3] albuterol sulfate 90 mcg/actuation 2 puff INHALATION Q4-6HP PRN #3 ea 05/22/18 01/11/21 Rx aerosol inhaler citalopram 20 mg tablet 20 mg PO QDAY #90 tab 01/29/19 01/11/21 Rx aspirin 81 mg tablet,delayed 81 mg PO DAILY 08/12/19 01/11/21 History release fluticasone 250 mcg-salmeterol 50 1 inh INHALATION BID PRN #180 each 08/12/19 01/11/21 Rx mcg/dose blistr powdr for inhalation ezetimibe 10 mg tablet 10 mg PO DAILY #90 tab 06/03/20 01/11/21 Rx lancets percision extra #100 each 06/03/20 01/11/21 Rx lisinopril 2.5 mg tablet 2.5 mg PO DAILY #90 tab 06/03/20 01/11/21 Rx metformin 1,000 mg tablet 1,000 mg PO BID #180 tab 06/03/20 01/11/21 Rx glipizide 10 mg tablet, extended 10 mg PO DAILY #90 tab 08/12/20 01/11/21 Rx release 24 hr rosuvastatin 40 mg tablet 40 mg PO HS #90 tab 09/05/20 01/11/21 Rx [Test Strips] #250 ea 09/07/20 01/11/21 Rx pioglitazone 15 mg tablet 15 mg PO DAILY #90 tab 10/07/20 01/11/21 Rx diphenhydramine HCl [Benadryl] 25 mg PO BEDTIME PRN 01/11/21 01/11/21 History Allergies Allergy/AdvReac Type Severity Reaction Status Date / Time doxycycline Allergy Mild BLISTERS Verified 01/11/21 13:05 acarbose AdvReac Severe gas; Verified 01/11/21 13:05 belching sucralfate AdvReac Severe Nausea Verified 01/11/21 13:05 Review of Systems Review of Systems Narrative: +abdominal pain, no blood in stool, no emesis or diarrhea. no cough ROS: Yes All systems reviewed with the patient and are negative except as otherwise documented Exam Vital Signs (past 8 hours): - 01/12/21 03:32 01/12/21 08:49 Temperature 97.7 F 98.9 F Pulse Rate 98 H 103 H Respiratory Rate 16 18 Blood Pressure 99/58 L 94/54 L Pulse Oximetry 92 94 Oxygen Delivery Method Room Air Oxygen Flow Rate 0 Const General: cooperative and comfortable HENMT Head: normal to inspection Ears: hearing grossly normal bilaterally Eyes Sclera: sclerae normal Neck Neck: trachea midline Chest Chest: normal inspection of the chest Resp Effort & Inspection: normal respiratory effort and able to speak in complete sentences Cardio Rate: regular rate Rhythm: regular rhythm GI Inspection: normal to inspection Palpation: soft and tender (left upper quadrant) Skin General: turgor normal and warm Neuro General: patient alert, patient awake and patient oriented x3 Extrem General: normal to inspection and full ROM Psych Appearance: grossly normal and well kempt Judgment: judgment good Objective Labs Result Diagrams: 01/11/21 13:20 01/11/21 13:20 Labs: Laboratory Results - last 24 hr 01/11/21 01/11/21 01/11/21 13:20 13:20 13:20 WBC 4.7 RBC 3.64 L Hgb 10.3 L Hct 31.7 L MCV 87.1 MCH 28.4 MCHC 32.6 RDW 15.2 H Plt Count 133 L Neut % (Auto) 71.0 Lymph % (Auto) 16.0 L [place] % (Auto) 6.2 Eos % (Auto) 6.0 H Baso % (Auto) 0.8 Neut # (Auto) 3400 Lymph # (Auto) 800 L [place] # (Auto) 300 Eos # (Auto) 300 Baso # (Auto) 0 Sodium 135 L Potassium 4.6 Chloride 103 Carbon Dioxide 25 BUN 14 Creatinine 0.87 Estimated GFR > 60.0 BUN/Creatinine Ratio 16.1 Glucose 211 H Hemoglobin A1c Calcium 9.6 Iron TIBC % Saturation Transferrin Ferritin Total Bilirubin 0.5 AST 58 H ALT 37 H Alkaline Phosphatase 54 Total Creatine Kinase 163 H CK-MB (CK-2) 2.79 H CK-MB (CK-2) Rel Index 1.7 Troponin I < 0.012 Total Protein 6.6 Albumin 3.7 Globulin 2.9 Albumin/Globulin Ratio 1.3 Lipase 285 TSH SARS-CoV-2 (PCR) Negative 01/11/21 01/11/21 01/11/21 19:04 19:04 19:07 WBC RBC Hgb Hct MCV MCH MCHC RDW Plt Count Neut % (Auto) Lymph % (Auto) [place] % (Auto) Eos % (Auto) Baso % (Auto) Neut # (Auto) Lymph # (Auto) [place] # (Auto) Eos # (Auto) Baso # (Auto) Sodium Potassium Chloride Carbon Dioxide BUN Creatinine Estimated GFR BUN/Creatinine Ratio Glucose Hemoglobin A1c 7.0 H Calcium Iron 65 TIBC 274 % Saturation 24 Transferrin 218 Ferritin 892 H Total Bilirubin AST ALT Alkaline Phosphatase Total Creatine Kinase CK-MB (CK-2) CK-MB (CK-2) Rel Index Troponin I Total Protein Albumin Globulin Albumin/Globulin Ratio Lipase TSH SARS-CoV-2 (PCR) 01/11/21 Unknown WBC RBC Hgb Hct MCV MCH MCHC RDW Plt Count Neut % (Auto) Lymph % (Auto) [place] % (Auto) Eos % (Auto) Baso % (Auto) Neut # (Auto) Lymph # (Auto) [place] # (Auto) Eos # (Auto) Baso # (Auto) Sodium Potassium Chloride Carbon Dioxide BUN Creatinine Estimated GFR BUN/Creatinine Ratio Glucose Hemoglobin A1c Calcium Iron TIBC % Saturation Transferrin Ferritin Total Bilirubin AST ALT Alkaline Phosphatase Total Creatine Kinase CK-MB (CK-2) CK-MB (CK-2) Rel Index Troponin I Total Protein Albumin Globulin Albumin/Globulin Ratio Lipase TSH 1.30 SARS-CoV-2 (PCR) Assessment & Plan Assessment & Plan narrative: CT scan i reviewed in context with physical exam is most likely diverticulitis. Responding already to IV antibiotics with decreased pain and WBC. Plan: advance diet. Convert to Augmentin and Flagyl for a 5 day course. Discharge home tomorrow ([place]) if continues to improve. No restrictions of diet or activity. Follow up in surgery clinic for colonoscopy in 6-8 weeks. COVID-19 COVID-19 status: Negative Time Spent With Patient Time with patient: 25 - 35 minutes
--- NOTE | 2021-01-12 09:44 | P.CONS_ITS ---
History of Present Illness Consult details Date Patient Seen: 01/12/21 Time Patient Seen: 09:44 Chief complaint: Fell off ladder, experiencing chest + rib pain Reason for consult: trauma Requesting provider: Carlos Guy Narrative: fell from ladder approximately 8 feet. no LOC. Has compression fractures and spinous process fracture as well as evidence of old fractures of ribs(12 years ago). pain in back and deep inspiration. incidental findings of left adrenal mass and thyroid nodules that it is recommended outpatient imaging and follow up with general surgery as non urgent. I reviewd Chest and abd CT Meds Home Medications and Allergies Home Medications Medication Instructions Recorded Confirmed Type calcium carbonate-vitamin D3 1 tab PO BID #180 tab 06/13/17 01/11/21 Rx [Oyster Shell Calcium-Vit D3] albuterol sulfate 90 mcg/actuation 2 puff INHALATION Q4-6HP PRN #3 ea 05/22/18 01/11/21 Rx aerosol inhaler citalopram 20 mg tablet 20 mg PO QDAY #90 tab 01/29/19 01/11/21 Rx aspirin 81 mg tablet,delayed 81 mg PO DAILY 08/12/19 01/11/21 History release fluticasone 250 mcg-salmeterol 50 1 inh INHALATION BID PRN #180 each 08/12/19 01/11/21 Rx mcg/dose blistr powdr for inhalation ezetimibe 10 mg tablet 10 mg PO DAILY #90 tab 06/03/20 01/11/21 Rx lancets percision extra #100 each 06/03/20 01/11/21 Rx lisinopril 2.5 mg tablet 2.5 mg PO DAILY #90 tab 06/03/20 01/11/21 Rx metformin 1,000 mg tablet 1,000 mg PO BID #180 tab 06/03/20 01/11/21 Rx glipizide 10 mg tablet, extended 10 mg PO DAILY #90 tab 08/12/20 01/11/21 Rx release 24 hr rosuvastatin 40 mg tablet 40 mg PO HS #90 tab 09/05/20 01/11/21 Rx [Test Strips] #250 ea 09/07/20 01/11/21 Rx pioglitazone 15 mg tablet 15 mg PO DAILY #90 tab 10/07/20 01/11/21 Rx diphenhydramine HCl [Benadryl] 25 mg PO BEDTIME PRN 01/11/21 01/11/21 History Allergies Allergy/AdvReac Type Severity Reaction Status Date / Time doxycycline Allergy Mild BLISTERS Verified 01/11/21 13:05 acarbose AdvReac Severe gas; Verified 01/11/21 13:05 belching sucralfate AdvReac Severe Nausea Verified 01/11/21 13:05 Review of Systems Review of Systems Narrative: pain with deep inspiration and back pain. no productive cough. ROS: Yes All systems reviewed with the patient and are negative except as otherwise documented Exam Vital Signs (past 8 hours): - 01/12/21 03:32 01/12/21 08:49 Temperature 97.7 F 98.9 F Pulse Rate 98 H 103 H Respiratory Rate 16 18 Blood Pressure 99/58 L 94/54 L Pulse Oximetry 92 94 Oxygen Delivery Method Room Air Oxygen Flow Rate 0 Const General: cooperative and healthy appearing HENMT Head: normocephalic and atraumatic Eyes Conjunctivae: conjunctivae normal Sclera: sclerae normal Neck Neck: trachea midline Thyroid: multiple nodules Chest Chest: normal inspection of the chest Resp Effort & Inspection: normal respiratory effort and able to speak in complete sentences Cardio Rate: regular rate Rhythm: regular rhythm GI Inspection: normal to inspection Palpation: soft Skin General: elasticity normal Neuro General: patient alert, patient awake and patient oriented x3 Psych Appearance: grossly normal Judgment: judgment good Objective Labs Result Diagrams: 01/11/21 13:20 01/11/21 13:20 Labs: Laboratory Results - last 24 hr 01/11/21 01/11/21 01/11/21 13:20 13:20 13:20 WBC 4.7 RBC 3.64 L Hgb 10.3 L Hct 31.7 L MCV 87.1 MCH 28.4 MCHC 32.6 RDW 15.2 H Plt Count 133 L Neut % (Auto) 71.0 Lymph % (Auto) 16.0 L [place] % (Auto) 6.2 Eos % (Auto) 6.0 H Baso % (Auto) 0.8 Neut # (Auto) 3400 Lymph # (Auto) 800 L [place] # (Auto) 300 Eos # (Auto) 300 Baso # (Auto) 0 Sodium 135 L Potassium 4.6 Chloride 103 Carbon Dioxide 25 BUN 14 Creatinine 0.87 Estimated GFR > 60.0 BUN/Creatinine Ratio 16.1 Glucose 211 H Hemoglobin A1c Calcium 9.6 Iron TIBC % Saturation Transferrin Ferritin Total Bilirubin 0.5 AST 58 H ALT 37 H Alkaline Phosphatase 54 Total Creatine Kinase 163 H CK-MB (CK-2) 2.79 H CK-MB (CK-2) Rel Index 1.7 Troponin I < 0.012 Total Protein 6.6 Albumin 3.7 Globulin 2.9 Albumin/Globulin Ratio 1.3 Lipase 285 TSH SARS-CoV-2 (PCR) Negative 01/11/21 01/11/21 01/11/21 19:04 19:04 19:07 WBC RBC Hgb Hct MCV MCH MCHC RDW Plt Count Neut % (Auto) Lymph % (Auto) [place] % (Auto) Eos % (Auto) Baso % (Auto) Neut # (Auto) Lymph # (Auto) [place] # (Auto) Eos # (Auto) Baso # (Auto) Sodium Potassium Chloride Carbon Dioxide BUN Creatinine Estimated GFR BUN/Creatinine Ratio Glucose Hemoglobin A1c 7.0 H Calcium Iron 65 TIBC 274 % Saturation 24 Transferrin 218 Ferritin 892 H Total Bilirubin AST ALT Alkaline Phosphatase Total Creatine Kinase CK-MB (CK-2) CK-MB (CK-2) Rel Index Troponin I Total Protein Albumin Globulin Albumin/Globulin Ratio Lipase TSH SARS-CoV-2 (PCR) 01/11/21 Unknown WBC RBC Hgb Hct MCV MCH MCHC RDW Plt Count Neut % (Auto) Lymph % (Auto) [place] % (Auto) Eos % (Auto) Baso % (Auto) Neut # (Auto) Lymph # (Auto) [place] # (Auto) Eos # (Auto) Baso # (Auto) Sodium Potassium Chloride Carbon Dioxide BUN Creatinine Estimated GFR BUN/Creatinine Ratio Glucose Hemoglobin A1c Calcium Iron TIBC % Saturation Transferrin Ferritin Total Bilirubin AST ALT Alkaline Phosphatase Total Creatine Kinase CK-MB (CK-2) CK-MB (CK-2) Rel Index Troponin I Total Protein Albumin Globulin Albumin/Globulin Ratio Lipase TSH 1.30 SARS-CoV-2 (PCR) Assessment & Plan Assessment & Plan narrative: Fall from ladder with compression fracture and spinous process fractures of spine. Old ribs fractures. Incidental adrenal and thyroid masses. Pain control, pulmonary toilet. PT consult recommended. FOLLOW up as non urgent outpatient for adrenal protocol CT abdomin. and Thyroid ultrasound with possible aspiration. Should be seen in General surgery Clinic once imagining is complete COVID-19 COVID-19 status: Negative Time Spent With Patient Time with patient: 25 - 35 minutes
[2021-01-12 10:00] VITALS: O2SAT 94
--- NOTE | 2021-01-12 11:50 | PT.IIE ---
Surgical History (Last Reviewed 01/12/21 @ 09:34 by Patsy Keyes MD) History of heart artery stent (11/2008) History of open reduction and internal fixation (ORIF) procedure (11/29/17) History of tonsillectomy (1961) Status post appendectomy (1960) Status post Tyler fundoplication (2001) Medical History (Last Reviewed 01/12/21 @ 09:34 by Patsy Keyes MD) Adrenal mass Asthma CAD (coronary artery disease) Depression Diabetes mellitus Hemorrhoids History of open fracture Hyperlipidemia Hypertension [place] (myocardial infarction) (11/2008) Open bimalleolar fracture of right ankle (11/29/17) Osteoporosis Vaginal candidiasis Physical Therapy Inpatient Evaluation/Re-Eval M1 PT/OT-IP Prior Functional Status Start: 01/12/21 13:53 Freq: NEEDED Status: Discharge Protocol: Document 01/12/21 13:53 [facility] (Rec: 01/12/21 14:11 [facility] [id number]) Medical Review Prior Functional Status Communication independent Mobility and Gait Pt was independent and did not use a device. Activities of Daily Living and IADL's Completely independent with all ADl's, IADL's, and driving . Social History Household Members spouse Living Arrangements House Number of Floors (Floors) One Floor Number of Stairs To Enter/Railing? One step to get into the house . Home Environment High Toilet,Tub/Shower Home Equipment Front Wheel Walker,Straight Cane,Shower Seat without Backrest Additional Social History Comment Pt is the process of moving out of her house itn the net two weeks. M1 PT/OT-IP Prior Functional Status Start: 01/12/21 14:54 Freq: NEEDED Status: Active Protocol: Document 01/12/21 11:50 AB (Rec: 01/12/21 15:05 AB [id number]) Medical Review Prior Functional Status Medical History Reviewed Yes Communication able to make needs known Mobility and Gait pt stated that she is independent with all mobilities and ambulation without AD Activities of Daily Living and IADL's per OT note:Completely independent with all ADl's, IADL's, and driving. Social History Household Members spouse Living Arrangements House Number of Floors (Floors) One Floor Number of Stairs To Enter/Railing? One step to get into the house . Home Environment High Toilet,Walk in Shower Home Equipment Front Wheel Walker,Straight Cane,Shower Seat with Backrest Additional Social History Comment pt stated that they are moving to [place] in 2 weeks M2 PT-IP Current Condition Start: 01/12/21 14:54 Freq: NEEDED Status: Active Protocol: Document 01/12/21 11:50 AB (Rec: 01/12/21 15:05 AB [email or web address]) Physical Therapy Current Condition Current Condition Evaluation Date 01/12/21 Treatment Diagnosis s/p fall; T4 compression fx; L1,2,4 trans. proc. fx; difficulty in walking Onset Date 01/11/21 Precautions Lumbar Precautions Log Roll,No Twisting,Limit Bending,Lifting Restriction of 10 lbs M3 PT-IP Subjective Start: 01/12/21 14:54 Freq: NEEDED Status: Active Protocol: Document 01/12/21 11:50 AB (Rec: 01/12/21 15:05 AB [id number]) Subjective Physical Therapy Visit Type Type Initial Evaluation Visit Start Time 11:50 Visit Stop Time 12:15 Total Visit Minutes 25 Number of COMM[employer]CIAL [employer] Visits 0 Physical Therapy Visit Comments Patient Comments pt is agreeable to do PT Therapy Pain Assessment Pain When Pain Assessed During Mobility Pain Present Pain Present Pain Reported Location left ribs. Intensity 7 Scale Used Numeric (0 - 10) Pain Management Techniques Modification of Treatment,Re- positioning,Timing of Activity with Medications M4 PT-IP Mobility and Gait Start: 01/12/21 14:54 Freq: NEEDED Status: Active Protocol: Document 01/12/21 11:50 AB (Rec: 01/12/21 15:05 AB [id number]) PT-Bed Mobility Assessment Rolling Type of Rolling Log Rolling Level of Assist Standby Assistance Supine to Sit Supine to Sit Standby Assistance Sit to Supine Sit to Supine Standby Assistance PT-Transfer Assessment Sit to and From Stand Sit to and from Stand Standby Assistance,Contact Guard Assistance,1 Person Assistance,Use of Upper Extremities Equipment Transfer Assistive Device Gait Belt,Front Wheeled Walker Orthotic/Prosthetic Devices or Brace: No Transfers Transfer Destination Bed,Chair Transfer Technique ambulated using FWW Transfer Ability Level of Assist Standby Assistance,Contact Guard Assistance,Use of Upper Extremities Comments Mobility Comments pt sitting on chair and agreeable to do PT. reviewed back precautions. completed sit to stand from chair initial CGA and then SBA after a few ft and ambulated in room using FWW ~ 40 ft. ambulated to bed and completed log roll sit<>supine SBA. pt ambulated out of the room ~ 12 ft using FWW SBA and completed up/down steps using FWW CGA. pt requested to go back to bed and ambulated using FWW SBA. completed sit to supine SBA. positioned in bed. call light and table placed within reach. Gait Assessment Gait Gait Assistance Required: Standby Assistance,Contact Guard Assist Distance (Feet) 40 Assistive Devices Assistive Device Gait Belt,Front Wheeled Walker Orthotic/Prosthetic Devices or Brace: No Gait Deviations General Gait Pattern Decreased Stride Length, Decreased Feet Clearance Factors Limiting Gait Function Factors Limiting Gait Function Decreased Activity Tolerance, Decreased Strength,Limited Range of Motion,Pain,Poor Balance Comments Gait Comments pls refer to mobility section for details Stair Climbing Assessment Evaluation Level of Assist On Stairs Contact Guard Assistance Devices Stair Climbing Assistive Devices Front Wheel Walker Technique/Endurance Stair Climbing Direction Ascend and Descend Stair Climbing Technique Step to Step Number of Steps Climbed 1 Query Text: Stair Climbing Set # Repetitions (reps) 2 PT-Balance Assessment Sitting Balance and Reactions Static Sitting Balance Ability Good Dynamic Sitting Balance Ability Good Standing Balance and Reactions Static Standing Balance Ability Fair Dynamic Standing Balance Ability Fair Device Used FWW M5 PT-IP Objective Assessments Start: 01/12/21 14:54 Freq: NEEDED Status: Active Protocol: Document 01/12/21 11:50 AB (Rec: 01/12/21 15:05 AB [id number]) Orientation Orientation/Cognition Level of Alertness Alert Orientation Name,Place,Situation Safety Awareness Decreased Safety Awareness Gross Range of Motion Lower Extremity ROM Assessment Within Functional Limits Strength Lower Extremity Strength Hip 3+/5 Knee 4-/5 Muscle Tone Muscle Tone WNL Yes M6 PT-IP Treatment Start: 01/12/21 14:54 Freq: NEEDED Status: Active Protocol: Document 01/12/21 11:50 AB (Rec: 01/12/21 15:05 AB [id number]) Physical Therapy Treatment Education Education Provided Precautions,Safety M7 PT-IP Assessment and Plan Start: 01/12/21 14:54 Freq: NEEDED Status: Active Protocol: Document 01/12/21 11:50 AB (Rec: 01/12/21 15:05 AB [email or web address]) PT Summary Assessment and Plan Potential Rehabilitation Potential Good Status of Condition at Evaluation Stable Summary Impairments Pain,ROM,Strength,Balance, Coordination,Sensation,Tone, Cognition,Bed Mobility, Transfers,Gait,Activity Tolerance Assessment Summary pt requiring SBA to CGA with mobility using FWW. pt plans to go hme and stated that spouse will be able to assist her. pt may go home when medically stable. Goals Bed Mobility Goal Independent Transfer Goal Independent,Front Wheeled Walker Gait Goal Independent,Front Wheel Walker Gait Distance 150 Other Goals up/down 1 step using FWW mod I Days to Meet Goals 3 Frequency of Treatment Frequency Of Treatment Once a Day Treatment Plan Physical Therapy Treatment Plan Bed Mobility Training,Transfer Training,Gait Training, Therapeutic Exercise,Balance Retraining,Discharge Planning, Hot or Cold Pack,Neuromuscular Re-ed,Coordination Retraining ,Manual Therapy Precautions Other Precautions falls Recommendations To Nursing Amount of Assist Needed 1 Person Assist Discharge Recommendations PT Discharge Recommendations Home with Assistance,Home Health Transportation Needs at Discharge Private Vehicle
--- NOTE | 2021-01-12 11:52 | OT.IP.EVAL ---
Past Medical History (Last Reviewed 01/12/21 @ 09:34 by Patsy Keyes MD) Adrenal mass Asthma CAD (coronary artery disease) Depression Diabetes mellitus Hemorrhoids History of open fracture Hyperlipidemia Hypertension [place] (myocardial infarction) (11/2008) Open bimalleolar fracture of right ankle (11/29/17) Osteoporosis Vaginal candidiasis Surgical History (Last Reviewed 01/12/21 @ 09:34 by Patsy Keyes MD) History of heart artery stent (11/2008) History of open reduction and internal fixation (ORIF) procedure (11/29/17) History of tonsillectomy (1961) Status post appendectomy (1960) Status post Tyler fundoplication (2001) Occupational Therapy Inpatient Evaluation/Re-Eval M1 PT/OT-IP Prior Functional Status Start: 01/12/21 13:53 Freq: NEEDED Status: Active Protocol: Document 01/12/21 13:53 [facility] (Rec: 01/12/21 14:11 [facility] [id number]) Medical Review Prior Functional Status Communication independent Mobility and Gait Pt was independent and did not use a device. Activities of Daily Living and IADL's Completely independent with all ADl's, IADL's, and driving . Social History Household Members spouse Living Arrangements House Number of Floors (Floors) One Floor Number of Stairs To Enter/Railing? One step to get into the house . Home Environment High Toilet,Tub/Shower Home Equipment Front Wheel Walker,Straight Cane,Shower Seat without Backrest Additional Social History Comment Pt is the process of moving out of her house in the next two weeks. M2 OT-IP Current Condition Start: 01/12/21 13:53 Freq: Status: Active Protocol: Document 01/12/21 13:53 [facility] (Rec: 01/12/21 14:11 [facility] [id number]) Occupational Therapy Current Condition Current Condition Evaluation Date 01/12/21 Treatment Diagnosis Acute T4 compression fx, acute transverse process fractures L1, L2, &L4 Post Operative Precautions Lumbar Precautions Log Roll,No Twisting,Limit Bending,Lifting Restriction of 10 lbs M3 OT- IP Subjective and Pain Start: 01/12/21 13:53 Freq: Status: Active Protocol: Document 01/12/21 13:53 [facility] (Rec: 01/12/21 14:11 [facility] [id number]) OT- Subjective Occupational Therapy Visit Type Type Initial Evaluation Visit Start Time 10:54 Visit Stop Time 11:52 Total Visit Minutes 58 Occupational Therapy Visit Comments Patient Comments Pt wanting to get up to use the bathroom. Patient/Caregiver Goals TO go home. OT Pain Assessment Pain When Pain Assessed At Rest Pain Present Pain Present Pain Reported Location left ribs. Intensity 2 M4 OT- IP ADL's Start: 01/12/21 13:53 Freq: Status: Active Protocol: Document 01/12/21 13:53 [facility] (Rec: 01/12/21 14:11 [facility] [id number]) OT [id number] Comments OT Self-Feeding Comments NOt at meal time. OT ADL-Grooming General Evaluation Grooming Ability Standby Assistance Areas Needing Assistance Retrieving/Set-up of Grooming Items Comments OT Grooming Comments Assist to open items for grooming needs. OT ADL-Oral Care General Eval Oral Care Ability Independent OT ADL-Dressing General Eval Lower Body Dressing Ability Maximum Assistance Comments OT Dressing Comments Able to educated and issued pt LB dressing equipment to increased ease fo LB dressing needs due to her acute compression fracture. OT ADL-Toileting General Evaluation Toileting Ability Independent Comments OT Toileting Comments Suggested may want go wear brief initially and wake her up if having to get up and use the bathroom. OT ADL-Bathing Comments OT Bathing Comments Not performed. M5 OT- IP IADL's Start: 01/12/21 13:53 Freq: Status: Active Protocol: Document 01/12/21 13:53 [facility] (Rec: 01/12/21 14:11 [facility] [id number]) OT-Instrumental Activities of Daily Living Home Safety Awareness Home Safety Comments At this time due to compression fracture, pt will need to have family assist with her needs. Meal Preparation Meal Preparation Caregiver Provides Assist Laborer Laborer Caregiver Provides Assist M6 OT- IP Functional Cognition Start: 01/12/21 13:53 Freq: Status: Active Protocol: Document 01/12/21 13:53 [facility] (Rec: 01/12/21 14:11 [facility] [id number]) Cognitive Factors Limiting Selfcare Function Cognitive Ability Level of Alertness Alert Patient Orientation Name,Age,Birthday,Month,Date, Year,Day of Week,Place, Situation Attention Span Ability Capable of Focused Attention, Capable of Sustained Attention Ability to Follow Commands Able to Follow Multi-Step Commands Memory Description No Deficits Noted Cognitive Comments Cognitive Assessment Comments Pt appears to be at baseline for cognitive needs. OT- Vision and Hearing OT- Hearing Assessment OT- Hearing Assessment WFL M7 OT- IP Mobility and Balance Start: 01/12/21 13:53 Freq: Status: Active Protocol: Document 01/12/21 13:53 [facility] (Rec: 01/12/21 14:11 [facility] [id number]) OT- Bed Mobility Assessment Rolling Type of Rolling Roll to Left Supine to Sit Supine to Sit Assist Standby Assistance Sit to Supine Sit to Supine Assist Standby Assistance OT-Transfer Assessment Sit to and From Stand Sit to and from Stand Standby Assistance Transfers Transfer Ability Standby Assistance Technique Transfer Destination Bed,Chair Transfer Technique Stand Step Pivot Devices Transfer Assistive Devices Gait Belt,Front Wheeled Walker Comments Mobility Comments Supine BP 89/56, sitting 85/62 , and standing 79/51 after use of toilet. Pt initially a little symptomatic feeling sweaty but stopped after sitting down and BP 88/55. OT- Balance Assessment Sitting Balance and Reactions Static Sitting Balance Ability Normal Dynamic Sitting Balance Ability Normal Standing Balance and Reactions Static Standing Balance Ability Good Dynamic Standing Balance Ability Fair M8 OT- IP Objective Assessments Start: 01/12/21 13:53 Freq: Status: Active Protocol: Document 01/12/21 13:53 [facility] (Rec: 01/12/21 14:11 [facility] [id number]) OT Strength Comments Strength Comments NT due to compression fractures, pt at least 3+/5 as able to use BUE for mobility needs. OT-Muscle Tone Assessment Muscle Tone WNL Yes OT Sensation Assessment Edema Edema Comments Right elbow a little swollen. Notified nurse of taking off coban which was rolling up on her elbow to tend to her wound . M9 OT- IP Assessment and Plan Start: 01/12/21 13:53 Freq: Status: Active Protocol: Document 01/12/21 13:53 [facility] (Rec: 01/12/21 14:11 [facility] [id number]) OT Summary Assessment and Plan Potential Rehabilitation Potential Good Analytic Complexity at Evaluation Low Summary OT Impairments Pain,Balance,Functional Mobility,Dressing,Bathing, Shower Transfers,Activity Tolerance Progress Towards Goals Progressing Toward Goals Assessment Summary Pt s/p fall off a ladder and main barrier is pain , decreased activity tolerance and now having to use FWW for mobility needs. Pt has a supportive family to assist with her needs. Goals Grooming Goal Independent Dressing Goal Independent Toileting Goal Independent Bathing Goal Independent Toilet Transfer Goal Independent Shower Transfer Goal Independent Days to Meet Goals 5 Frequency of Treatment Frequency Of Treatment Once a Day Treatment Plan OT Treatment Plan ADL Training,Functional Mobility,Patient/Family Education,Discharge Planning Other Treatment Recommendations and Next shower if still here Treatment Focus Discharge Recommendations OT Discharge Recommendations Home with Assistance Transportation Needs at Discharge Private Vehicle
[2021-01-12 12:00] VITALS: BP 113/59; PULSE 101; RESP 20; TEMP 36.6; O2SAT 97
--- NOTE | 2021-01-12 13:27 | PM.DS.1 ---
History of Present Illness History of Present Illness Date Patient Seen: 01/12/21 Time Patient Seen: 13:27 Chief complaint: Fell off ladder, experiencing chest + rib pain Narrative: Per Dr. Kilgore, Patient is a 80-year-old female with history type 2 diabetes, hypertension, hyperlipidemia, asthma brought to emergency department due to fall from ladder. Patient clearly recalls event leading to fall. She states she was standing on top rung of an 8 ft ladder to get in the attic and was trying to adjust her footing when ladder slipped from under her causing her to fall backwards to the ground. She denies LOC. Her witnessed the event and called 911 at patient's direction. Her CT scan showed acute T4 compression fracture, acute transverse process fracture of L1, L2 and L4, old fractures of T7 and T11. She has old rib fractures on chest CT. Head CT showed left posterior occipital subgaleal hematoma but no intracerebral bleed. She has moderate anemia. EKG showed sinus tachycardia with first-degree AV block. Patient is complaining of nausea and severe pain in her back. She denies chest pain, palpitations, dyspnea, LOC or loss of vision. Patient endorses poor balance with prior history of falls. However she does not use an assist device such as cane or walker. Discharge Providers Provider Date of admission: 01/11/21 16:58 Discharge Date: 01/12/21 Primary care physician: Noe Simpson MD Consults: 01/11/21 18:03 Consult to Occupational Therapy Evaluate & Treat Comment: Physician Instructions: Evaluate and treat Consult to Physical Therapy Evaluate & Treat Comment: Physician Instructions: Evaluate and Treat 01/11/21 18:49 Consult to Pastoral Services Routine Comment: Requests Medical Technologist Prn to allow her own Tester Wafer Substrate to visit 01/12/21 08:42 Consult to General Surgery Routine Comment: Consulting Provider: Patsy Keyes Reason for consultation: trauma consult Has provider been notified: Yes Discharge provider: Zia Streeter DO Summary Hospital Course Discharge Diagnosis: 1. Acute traumatic fractures of T4 and transverse process of L1, L2 and L4 2. Left posterior occipital subgaleal hematoma 3. Coronary artery disease, stable 4. Type 2 diabetes 5. Hypertension, chronic 6. Normocytic anemia 7. Multinodular goiter 8. Indeterminate left adrenal nodule 9. Recurrent falls Hospital Course: Patient is a 80-year-old female with history type 2 diabetes, hypertension, CAD, hyperlipidemia, asthma brought to emergency department due to fall from ladder. She suffered multiple injuries as a result including traumatic fractures of T4 and transverse processes of L1, L2, and L4. She also had a left posterior occipital subgaleal hematoma. Patient had no evidence of bleeding during the course of her hospital stay.She was seen by General surgery as a trauma consult and Orthopedic surgery whom was consulted in the emergency room. She was monitored overnight with adequate pain control, and was seen by physical and occupational therapy. Patient will return home with home health, she was prescribed oxycodone 5 mg as needed for severe pain at home and recommended to continue on scheduled Tylenol. She had a couple of incidental findings on her imaging that should be followed up. She had a multinodular goiter, with a normal TSH, further outpatient evaluation is recommended. She also has a left adrenal nodule which can also be followed up as an outpatient. Exam Vital Signs (past 8 hours): - 01/12/21 08:49 01/12/21 10:00 Temperature 98.9 F Pulse Rate 103 H Respiratory Rate 18 Blood Pressure 94/54 L Pulse Oximetry 94 94 Oxygen Delivery Method Room Air Oxygen Flow Rate 0 Narrative Exam Narrative: General: Alert and communicative elderly female in mild distress HEENT: There is a left occipital hematoma, danny, EOMI Neck: No lymphadenopathy Lungs: Clear to auscultation Heart: Tachycardia with regular rhythm, no murmur Back: minimally Tender over upper thoracic and lumbar vertebrae today Extremities: There is extensive superficial bruise ears on the left and right lower legs and dorsum of left foot Neurological: A and O x3, speech is fluent, affect normal, no pronator drift, no leg drift Objective Labs Result Diagrams: 01/11/21 13:20 01/11/21 13:20 Labs: Laboratory Results - last 24 hr 01/11/21 01/11/21 01/11/21 13:20 13:20 13:20 WBC 4.7 RBC 3.64 L Hgb 10.3 L Hct 31.7 L MCV 87.1 MCH 28.4 MCHC 32.6 RDW 15.2 H Plt Count 133 L Neut % (Auto) 71.0 Lymph % (Auto) 16.0 L Throckmorton % (Auto) 6.2 Eos % (Auto) 6.0 H Baso % (Auto) 0.8 Neut # (Auto) 3400 Lymph # (Auto) 800 L Th[place]morton # (Auto) 300 Eos # (Auto) 300 Baso # (Auto) 0 Sodium 135 L Potassium 4.6 Chloride 103 Carbon Dioxide 25 BUN 14 Creatinine 0.87 Estimated GFR > 60.0 BUN/Creatinine Ratio 16.1 Glucose 211 H Hemoglobin A1c Calcium 9.6 Iron TIBC % Saturation Transferrin Ferritin Total Bilirubin 0.5 AST 58 H ALT 37 H Alkaline Phosphatase 54 Total Creatine Kinase 163 H CK-MB (CK-2) 2.79 H CK-MB (CK-2) Rel Index 1.7 Troponin I < 0.012 Total Protein 6.6 Albumin 3.7 Globulin 2.9 Albumin/Globulin Ratio 1.3 Lipase 285 TSH SARS-CoV-2 (PCR) Negative 01/11/21 01/11/21 01/11/21 19:04 19:04 19:07 WBC RBC Hgb Hct MCV MCH MCHC RDW Plt Count Neut % (Auto) Lymph % (Auto) Th[place]morton % (Auto) Eos % (Auto) Baso % (Auto) Neut # (Auto) Lymph # (Auto) [place]morton # (Auto) Eos # (Auto) Baso # (Auto) Sodium Potassium Chloride Carbon Dioxide BUN Creatinine Estimated GFR BUN/Creatinine Ratio Glucose Hemoglobin A1c 7.0 H Calcium Iron 65 TIBC 274 % Saturation 24 Transferrin 218 Ferritin 892 H Total Bilirubin AST ALT Alkaline Phosphatase Total Creatine Kinase CK-MB (CK-2) CK-MB (CK-2) Rel Index Troponin I Total Protein Albumin Globulin Albumin/Globulin Ratio Lipase TSH SARS-CoV-2 (PCR) 01/11/21 Unknown WBC RBC Hgb Hct MCV MCH MCHC RDW Plt Count Neut % (Auto) Lymph % (Auto) [place] % (Auto) Eos % (Auto) Baso % (Auto) Neut # (Auto) Lymph # (Auto) [place] # (Auto) Eos # (Auto) Baso # (Auto) Sodium Potassium Chloride Carbon Dioxide BUN Creatinine Estimated GFR BUN/Creatinine Ratio Glucose Hemoglobin A1c Calcium Iron TIBC % Saturation Transferrin Ferritin Total Bilirubin AST ALT Alkaline Phosphatase Total Creatine Kinase CK-MB (CK-2) CK-MB (CK-2) Rel Index Troponin I Total Protein Albumin Globulin Albumin/Globulin Ratio Lipase TSH 1.30 SARS-CoV-2 (PCR) COUNT INCLUDES THE [facility] Medical History Adrenal mass Asthma CAD (coronary artery disease) Depression Diabetes mellitus Hemorrhoids History of open fracture Hyperlipidemia Hypertension NC (myocardial infarction) (11/2008) Open bimalleolar fracture of right ankle (11/29/17) Osteoporosis Vaginal candidiasis Surgical History History of heart artery stent (11/2008) History of open reduction and internal fixation (ORIF) procedure (11/29/17) History of tonsillectomy (1961) Status post appendectomy (1960) Status post Tyler fundoplication (2001) Family History Father Alcoholic Stroke Hypertension Brother Leukemia Mother NC (myocardial infarction) Heart disease Sister Heart disease Sister Alzheimer's disease Sister No problems noted. Brother No problems noted. Family/Other Age: 58 Alcoholic Family/Other Age: 56 Hyperlipidemia Family/Other Age: 55 Hyperlipidemia Social History marital status: household members: spouse occupational status: previously employed Smoking Status: Never smoker second hand exposure: Yes (I was for 42 years. ) alcohol intake: never substance use type: does not use Discharge Plan Discharge Plan Patient Disposition: Home Provider Discharge Comment: You were admitted to the hospital after a fall. You have some new spinal fractures which are non-operative. You did well with PT. You are being prescribed some pain medications and home health. Discharge orders & Medications Prescriptions: New oxycodone 5 mg Tablet 5 mg PO Q4HR PRN (Reason: Pain, Moderate (4-6)) 7 Days Qty: 25 RF: 0 polyethylene glycol 3350 17 gram Powder In Packet 17 gm PO DAILY 14 Days Qty: 14 RF: 0 Continued calcium carbonate-vitamin D3 [Oyster Shell Calcium-Vit D3] 500 MG/200 IU tablet 1 tab PO BID Qty: 180 RF: 3 albuterol sulfate [Ventolin HFA] 90 mcg/actuation HFA aerosol inhaler 2 puff INHALATION Q4-6HP PRN (Reason: shortness of breath) Qty: 3 RF: 3 citalopram [Celexa] 20 mg tablet 20 mg PO QDAY Qty: 90 RF: 3 rosuvastatin 40 mg tablet 40 mg PO HS Qty: 90 RF: 3 (DME) [Test Strips] 0 .Route .MEDSUPPLY Qty: 250 RF: 3 pioglitazone 15 mg tablet 15 mg PO DAILY Qty: 90 RF: 1 aspirin [Adult Low Dose Aspirin] 81 mg tablet,delayed release (DR/EC) 81 mg PO DAILY RF: 0 fluticasone propion-salmeterol [Advair Diskus] 250-50 mcg/dose blister with device 1 inh INHALATION BID PRN (Reason: allergies) Qty: 180 RF: 3 lisinopril 2.5 mg tablet 2.5 mg PO DAILY Qty: 90 RF: 3 metformin 1,000 mg tablet 1,000 mg PO BID Qty: 180 RF: 3 ezetimibe 10 mg tablet 10 mg PO DAILY Qty: 90 RF: 3 (DME) lancets percision extra Qty: 100 RF: 5 glipizide 10 mg tablet extended release 24hr 10 mg PO DAILY Qty: 90 RF: 1 diphenhydramine HCl [Benadryl] 25 mg Capsule 25 mg PO BEDTIME PRN (Reason: Allergy Symptoms) RF: 0 Follow up/Referrals: Noe Simpson MD [Primary Care Provider] - Visit Report/Discharge Packet Instructions: Exercises to Help Prevent Falls, How to Prevent Falls, DI for Prescription Opioid Use Discharge Data Primary Care Provider: Noe Simpson Attending Provider: Carlos Guy
--- NOTE | 2021-01-12 13:29 | CM.IDA ---
Initial DCP Assessment Note Patient is a 80 yo female, resident of [place]. Patient presents after a fall from an 8 ft ladder, CT scan shows acute T4 compression fracture, acute transverse process fracture of L1, L2 and L4, old fractures of T7 and T11 PCP: Noe Simpson Payer: [facility]/ for Life According to FALLON Velez and Dolores OT, patient did well during therapy sessions and has been cleared for return home. Patient agreeable to this plan and is in the process of moving from their current home into another. Met w/patient, introduced role. Patient in good spirits, states therapy sessions went well and her spouse plans to transport her home upon DC, expected today. Patient feels confident that her can care for her as needed. patient denies needs from this YOUTH SERVICES SPECIALIST, denies the need for Home health. Dr Streeter updated and DC order now in. Plan: Home w/spouse to assist, outpatient therapies as needed LYN Murillo Discharge Planning/Care Management CM Discharge Assessment Start: 01/12/21 13:22 Freq: Status: Active Protocol: Document 01/12/21 13:22 TIM (Rec: 01/12/21 13:29 TIM [id number]) Discharge Planning Assessment Assigned Wildlife Rehabilitator LYN Gould DPOA/Assigned Designee Name Miguel Meier, spouse Contact Information [phone] Advance Directives? Yes History Provided By Patient,Medical Record Prior Living Arrangements House Household Members spouse Type of transportation used prior to Drives own vehicle admit Independent with ADL's Yes Is patient alert and oriented? Yes Caregiver for Another No Patient/Family Preference OP PT Therapy Barriers to Discharge No Discharge Plan Home Transportation Arrangement Spouse Referrals Initiated None needed
--- NOTE | 2021-01-12 14:48 | PC.NURSE ---
Pt discharge education given to pt and spouse, discussed- medications, pain management, activity, s/s of stroke, f/u appts, and reasons to seek medical attention. Pt and spouse expressed understanding. IV removed, intact, tolerated well. Pt got dressed with 1PA. All belongings packed and sent with pt. Pt left via w/c to spouse's POV, accompanied by RN.
== END 2021-01-12 14:45 | disposition home or self-care (01) ==
LOC: ED 16:58 → AC 16:58
PROVIDERS: Admitting Provider Internal Medicine; Emergency Provider Emergency Medicine; PCP Student in an Organized Health Care Education/Training Program; Referring Provider Emergency Medicine; Visit Provider Internal Medicine
DX: S22.048A Other fracture of fourth thoracic vertebra, initial encounter for closed fracture (principal); S06.2X0A Diffuse traumatic brain injury without loss of consciousness, initial encounter; S32.019A Unspecified fracture of first lumbar vertebra, initial encounter for closed fracture; W11.XXXA Fall on and from ladder, initial encounter; Y93.E6 Activity, residential relocation; Y92.009 Unspecified place in unspecified non-institutional (private) residence as the place of occurrence of the external cause; E04.2 Nontoxic multinodular goiter; Z79.82 Long term (current) use of aspirin; I25.2 Old myocardial infarction; I10 Essential (primary) hypertension; E11.9 Type 2 diabetes mellitus without complications; Z79.84 Long term (current) use of oral hypoglycemic drugs; I25.10 Atherosclerotic heart disease of native coronary artery without angina pectoris; D64.9 Anemia, unspecified; Z91.81 History of falling; Z20.822 Contact with and (suspected) exposure to COVID-19
CPT/HCPCS: 36415; 70450; 71260; 72125; 74177; 80053; 81003; 82550; 82553; 82728; 82962; 83036; 83540; 83550; 83690; 84443; 84484; 85025; 87635; 93005; 93010; 96361; 96372; 96374; 96375; 96376; 97161; 97165; 97530; 97535; 99225; 99285; C9803; G0378; A9270; J1650; J2270; J2405; Q9967

== ENCOUNTER 2021-01-14 07:32 | Emergency (ER) | payer MEDICARE, OTHER, SELFPAY ==
[2021-01-11 18:40] VITALS: BMI 22.4
[2021-01-14] VITALS (16 sets, daily range): BP systolic 97–147; BP diastolic 55–84; PULSE 84–110; RESP 18; TEMP 37; O2SAT 93–99; BMI 21.9
--- NOTE | 2021-01-14 07:59 | ED_ITS ---
HPI - Fall General Chief Complaint: Fall Stated Complaint: fell and hurt back and ribs Time Seen by Provider: 01/14/21 07:42 Source: patient and family Mode of arrival: Wheelchair Limitations: no limitations History of Present Illness HPI Narrative: 80-year-old female the emergency department complaint of continuing left-sided chest pain status post fall where she had compression fracture her thoracic vertebrae. Patient was hospitalized here in the emergency department and discharged on back home. They were offered home health care but patient deferred at that time. Patient states that she is having difficulty managing her pain and has been decreasing her fluid and food intake to prevent herself from having to go to the bathroom so she does not have to get up and walk or move. Patient states her back isn't really causing a lot of pain although it is present. Her main concern is left-sided chest pain. Patient has been taking oxycodone but typically only 10 minutes prior to attempt to get out of bed and she is only taking this intermittently. Often it 7 hours or more in between doses. She is not any sort of regimen. She states she has also not had a bowel movement since her hospitalization. She denies any fevers or chills. She denies any new shortness of breath. She denies any nausea or vomiting. She has been urinating but has been decreased frequency. She denies any current abdominal pain. She and her have both noted her lower extremities are bit more swollen she does have quite a bit of bruising of her left ankle but her states that from a vacuum sewer cleaner following her ankle and she is able to ambulate without pain in her lower extremities. Patient states she takes an aspirin daily but no other anticoagulant. She does have a history of coronary a rtery stent is on medications for diabetes, hypertension and dyslipidemia. Patient lives independently with her . Her initial fall was secondary to trying to change her positioning on a step ladder and falling off. Patient feels she may benefit from placement in a rehab facility with additional assistance. Related Data Home Medications Medication Instructions Recorded Confirmed aspirin 81 mg tablet,delayed 81 mg PO DAILY 08/12/19 01/11/21 release diphenhydramine HCl [Benadryl] 25 mg PO BEDTIME PRN 01/11/21 01/11/21 Previous Rx's Medication Instructions Recorded calcium carbonate-vitamin D3 1 tab PO BID #180 tab 06/13/17 [Oyster Shell Calcium-Vit D3] albuterol sulfate 90 mcg/actuation 2 puff INHALATION Q4-6HP PRN #3 ea 05/22/18 aerosol inhaler citalopram 20 mg tablet 20 mg PO QDAY #90 tab 01/29/19 fluticasone 250 mcg-salmeterol 50 1 inh INHALATION BID PRN #180 each 08/12/19 mcg/dose blistr powdr for inhalation ezetimibe 10 mg tablet 10 mg PO DAILY #90 tab 06/03/20 lancets percision extra #100 each 06/03/20 lisinopril 2.5 mg tablet 2.5 mg PO DAILY #90 tab 06/03/20 metformin 1,000 mg tablet 1,000 mg PO BID #180 tab 06/03/20 glipizide 10 mg tablet, extended 10 mg PO DAILY #90 tab 08/12/20 release 24 hr rosuvastatin 40 mg tablet 40 mg PO HS #90 tab 09/05/20 [Test Strips] #250 ea 09/07/20 pioglitazone 15 mg tablet 15 mg PO DAILY #90 tab 10/07/20 oxycodone 5 mg PO Q4HR PRN 7 Days #25 tab 01/12/21 polyethylene glycol 3350 17 gm PO DAILY 14 Days #14 ea 01/12/21 oxycodone 5 mg PO Q6H PRN #14 tab 01/14/21 zolpidem [Ambien] 5 mg PO BEDTIME PRN #5 tab 01/14/21 Allergies Allergy/AdvReac Type Severity Reaction Status Date / Time doxycycline Allergy Mild BLISTERS Verified 01/14/21 07:47 acarbose AdvReac Severe gas; Verified 01/14/21 07:47 belching sucralfate AdvReac Severe Nausea Verified 01/14/21 07:47 Review of Systems Review of Systems ROS Unobtainable: All systems reviewed & are unremarkable except as noted in HPI and below Patient History Medical History Adrenal mass Asthma CAD (coronary artery disease) Depression Diabetes mellitus Hemorrhoids History of open fracture Hyperlipidemia Hypertension [place] (myocardial infarction) (11/2008) Open bimalleolar fracture of right ankle (11/29/17) Osteoporosis Vaginal candidiasis Surgical History History of heart artery stent (11/2008) History of open reduction and internal fixation (ORIF) procedure (11/29/17) History of tonsillectomy (1961) Status post appendectomy (1960) Status post Tyler fundoplication (2001) Family History Father Alcoholic Stroke Hypertension Brother Leukemia Mother OR (myocardial infarction) Heart disease Sister Heart disease Sister Alzheimer's disease Sister No problems noted. Brother No problems noted. Family/Other Age: 58 Alcoholic Family/Other Age: 56 Hyperlipidemia Family/Other Age: 55 Hyperlipidemia Social History marital status: household members: spouse occupational status: previously employed Smoking Status: Never smoker second hand exposure: Yes (I was for 42 years. ) alcohol intake: never substance use type: does not use Smoking Status: Never smoker alcohol intake frequency: 0-2 drinks per day Substance Use Type: does not use Exam Narrative Exam Narrative: GENERAL: Alert and oriented x three, elderly female in mild distress HEENT: Head normocephalic, atraumatic, EOMI, pupils reactive, face symmetric, moist mucous membranes NECK: Supple, full range of motion CARDIOVASCULAR: Regular rate and rhythm without murmurs, rubs or gallops. RESPIRATORY: Breath sounds equal bilaterally, no wheezes rales or rhonchi. ABDOMEN: Soft, nontender. Normoactive bowel sounds all 4 quadrants. No guarding or rebound, rigidity, no mass : No CVA tenderness EXTREMITIES: Normal range of motion, no clubbing. Patient has bilateral pedal and ankle edema, nonpitting. Patient also has significant bruising of the left ankle. She does not have any bony tenderness of her lower extremities. She has normal range of motion. Neurovascularly intact NEUROLOGICAL: Cranial nerves II through XII grossly intact. Moving all extremities SKIN: Warm, dry, no petechiae, no rashes or lesions noted otherwise. Patient does have some ecchymosis on her upper extremities. Initial Vital Signs Initial Vital Signs: Vital Signs Blood Pressure 123/84 01/14/21 07:44 Scores GCS [place] coma scale eye opening: Spontaneous [place] coma scale verbal response: Orientated [place] coma scale motor response: Obey commands [place] coma scale total score: 15 Course Orders Ordered: ED Orders 01/14/21 09:52 Consult to Physical Therapy Evaluate & Treat Discontinued Medications Acetaminophen (Acetaminophen 325 Mg Tablet) 650 mg PO NOW ONE Stop: 01/14/21 09:52 Last Admin: 01/14/21 10:04 Dose: 650 mg Documented by: ELISABETH Docusate Sodium (Docusate 100 Mg Capsule) 100 mg PO NOW ONE Stop: 01/14/21 08:04 Last Admin: 01/14/21 10:04 Dose: 100 mg Documented by: ELISABETH Ketorolac Tromethamine (Ketorolac 60 Mg/2 Ml Vial) 15 mg IV NOW ONE Stop: 01/14/21 08:04 Last Admin: 01/14/21 08:32 Dose: 15 mg Documented by: ELISABETH Oxycodone HCl (Oxycodone Ir 5 Mg Tablet) 5 mg PO NOW ONE Stop: 01/14/21 08:04 Last Admin: 01/14/21 08:32 Dose: 5 mg Documented by: ELISABETH Oxycodone HCl (Oxycodone Ir 5 Mg Tablet) 5 mg PO NOW ONE Stop: 01/14/21 09:52 Last Admin: 01/14/21 10:03 Dose: 5 mg Documented by: ELISABETH Reevaluation(s) Reevaluation #1: Patient much improved with pain medication. PT evaluated and p atient was given some teaching including to roll to her unaffected side when getting out of bed which has made her significantly more comfortable in terms of pain as well as confidence getting out of bed and moving about. Patient myself, her all discussed that she needs to have a regimen for pain management initially and she can start to space out her pain medications. We discussed a baseline Tylenol, she can add Percocet for as needed pain control but can increase up to 2 tablets as needed. She has not been eating or drinking well so encouraged her to hydrate adequately as well as to take a stool softener to avoid constipation. Patient's labs and imaging otherwise do not show any concerning findings today and patient and family and I discussed these findings. Time: 12:38 Vital Signs Vital signs: Vital Signs - 8 hr 01/14/21 11:00 01/14/21 11:29 01/14/21 11:30 Pulse Rate 89 87 87 Blood Pressure 97/55 L 111/57 L 119/57 L Pulse Oximetry 93 98 97 01/14/21 12:00 01/14/21 12:01 01/14/21 12:30 Pulse Rate 88 89 84 Blood Pressure 129/58 L 114/63 Pulse Oximetry 96 98 96 MDM - Fall Lab Data Attestation: I reviewed the patient's lab results. Result diagrams: 01/14/21 08:28 01/14/21 08:28 Labs: Lab Results 01/14/21 01/14/21 Range/Units 08:28 08:28 WBC 7.4 (4.5-11.0) X10^3/uL RBC 3.59 L (4.0-5.2) X10^6/uL Hgb 10.3 L (12.0-16.0) g/dL Hct 31.4 L (36-46) % MCV 87.6 (80-100) fL MCH 28.8 (26-34) PG MCHC 32.9 (30-36) % RDW 15.1 H (11.6-14.8) % Plt Count 130 L (150-400) X10^3/uL Neut % (Auto) 79.3 H (50-75) % Lymph % (Auto) 7.7 L (25-40) % [place] % (Auto) 7.3 (3-14) % Eos % (Auto) 4.8 H (2-4) % Baso % (Auto) 0.9 (0-2) % Neut # (Auto) 5800 (5317-7268) /uL Lymph # (Auto) 600 L (2245-4387) /uL [place] # (Auto) 500 (0-900) /uL Eos # (Auto) 400 (0-450) /uL Baso # (Auto) 100 (0-100) /uL Sodium 133 L (137-145) mmol/L Potassium 4.3 (3.4-5.1) mmol/L Chloride 102 (98-107) mmol/L Carbon Dioxide 20 L (22-32) mmol/L BUN 16 (7-17) mg/dL Creatinine 0.84 (0.52-1.04) mg/dL Estimated GFR > 60.0 (>60) mL/min BUN/Creatinine Ratio 19.0 (6-22) Glucose 200 H (80-110) mg/dL Calcium 9.7 (8.4-10.2) mg/dL Total Bilirubin 1.2 (0.2-1.3) mg/dL AST 34 (14-36) IU/L ALT 26 (<35) IU/L Alkaline Phosphatase 46 (38-126) U/L Total Creatine Kinase 124 (30-135) U/L CK-MB (CK-2) 0.73 (<2.37) ng/mL CK-MB (CK-2) Rel Index 0.6 L (1.5-5.0) % Troponin I < 0.012 (0.01-0.034) ng/mL NT-Pro-B Natriuret Pep 1300 H (<450) pg/mL Total Protein 7.2 (6.3-8.2) g/dL Albumin 3.9 (3.5-5.0) g/dL Globulin 3.3 (1.7-4.1) g/dL Albumin/Globulin Ratio 1.2 (1.0-2.8) Lipase 51 D (23-300) U/L Imaging Data Abdominal x-ray: Radiologist's Impression: [address] [id number] ReportSigned Patient: Poppy Meier KMR#: [id number]: 2Acct:[id number]/Sex: 80 / FDate of Service: 01/14/21Loc: EDAccession Number: [id number] Procedure: XR acute abdomen series Ordering Provider: Tamiko Min D.O. PROCEDURE: XR ACUTE ABDOMEN SERIES INDICATIONS: fall, left chest pain, no BM TECHNIQUE: One view chest and two views of the abdomen were acquired. COMPARISON: [facility], , ABDOMEN ACUTE SERIES, 12/04/2017, 11:56. FINDINGS: Surgical changes and devices: None. Chest: Lungs are clear. No pneumothorax or large volume pleural effusion. Heart size is normal. Vascular calcifications within the aortic arch. No pneumoperitoneu m. Density overlying the right lower lobe favored to represent nipple shadow. Abdomen: Bowel gas pattern is normal. No evidence of obstruction. Gas is noted throughout the colon. No suspicious calcifications. Visualized solid organ contours appear normal. Bones: No suspicious bony lesions. Degenerative changes of the spine and hips. There are minimally displaced fractures along the lateral aspect of the left 3rd through 6th ribs along with additional minimally displaced fractures of the posterior aspect of the left 7th and 8th ribs. IMPRESSION: Multiple minimally displaced rib fractures of the left 3rd through eighth ribs. No pneumothorax. Nonobstructive bowel gas pattern. Dictated by: on 01/14/2021 at 7:37 Approved by: on 01/14/2021 at 7:45 ECG Data Attestation: I personally reviewed and interpreted this ECG as follows: Prior ECG tracings: available for review Interpretation: Rhythm rate 99 AL 184 QRS 84 and QTC of 454. No acute ST elevation or depression noted. Patient has prior from 03/21/2019 which appears similar. MDM Narrative Medical decision making narrative: This is a 80-year-old female with known compression fractures and old left-sided rib fractures. On her recent CT imaging at her last ER visit no obvious new fractures were noted. There once again visualized on chest x-ray. Patient is not particularly tender to palpation and I suspect she may be having some referred pain from her thoracic compression fractures. Patient has not been taking pain medications regularly and only takes about 10 minutes before trying to get out of bed. Patient was supposed to have home health care but initially deferred it. Imaging was obtained as she has had some increased swelling in her lower extremities. Patient's labs, EKG, DVT studies do not show any major abnormalities other than a elevated BNP. Some of this may be dependent edema as well and planned at have patient increase her ambulation or other than starting Lasix at this moment. We discussed pain management regimen and PT was very helpful to the patient in boosting her competence and giving her techniques in order to move less painfully. Patient feels comfortable returning home at this as does her . Discharge Plan Departure Patient Disposition: Home Clinical Impression: Compression fracture of body of thoracic vertebra, Rib pain Instructions: DI for Vertebral Fracture Activity Restrictions/Additional Instructions: Follow up in the next week for recheck. Continue to follow the recommendation from PT to assist with less painful movement. Take Tylenol/acetaminophen a 1000 mg every 8 hours as needed for pain. You may take oxycodone 1-2 tablets every 6 hours as needed for pain. I would recommend taking this regularly for the 1st 24-48 hours and then starting to space out her pain medication over time. This medication will make you sleepy do not drive, perform hazardous activities or make any major decisions while taking it. This medication will also make you constipated so make sure to drink plenty of fluids and take a stool softener 1-2 tablets daily until stools are soft and regular. If these medications are inadequate for pain you can add ibuprofen up to 800mg every 8 hours as needed. Do not start ambien at the same time as you increase your oxycodone. These are both sedating medications and can cause oversedation/respiratory depression. Please return for fevers, new chest pain, back or thoracic pain, lightheadedness or passing out, persistent vomiting, abdominal pain, new weakness, numbness or loss of sensation, new bowel or bladder incontinence or other new or concerning symptoms. Prescriptions: New oxycodone 5 mg tablet 5 mg PO Q6H PRN (Reason: pain) Qty: 14 RF: 0 zolpidem [Ambien] 5 mg tablet 5 mg PO BEDTIME PRN (Reason: insomnia) Qty: 5 RF: 0 No Action calcium carbonate-vitamin D3 [Oyster Shell Calcium-Vit D3] 500 MG/200 IU tablet 1 tab PO BID Qty: 180 RF: 3 albuterol sulfate [Ventolin HFA] 90 mcg/actuation HFA aerosol inhaler 2 puff INHALATION Q4-6HP PRN (Reason: shortness of breath) Qty: 3 RF: 3 citalopram [Celexa] 20 mg tablet 20 mg PO QDAY Qty: 90 RF: 3 rosuvastatin 40 mg tablet 40 mg PO HS Qty: 90 RF: 3 (DME) [Test Strips] 0 .Route .MEDSUPPLY Qty: 250 RF: 3 pioglitazone 15 mg tablet 15 mg PO DAILY Qty: 90 RF: 1 aspirin [Adult Low Dose Aspirin] 81 mg tablet,delayed release (DR/EC) 81 mg PO DAILY RF: 0 fluticasone propion-salmeterol [Advair Diskus] 250-50 mcg/dose blister with device 1 inh INHALATION BID PRN (Reason: allergies) Qty: 180 RF: 3 lisinopril 2.5 mg tablet 2.5 mg PO DAILY Qty: 90 RF: 3 metformin 1,000 mg tablet 1,000 mg PO BID Qty: 180 RF: 3 ezetimibe 10 mg tablet 10 mg PO DAILY Qty: 90 RF: 3 (DME) lancets percision extra Qty: 100 RF: 5 glipizide 10 mg tablet extended release 24hr 10 mg PO DAILY Qty: 90 RF: 1 diphenhydramine HCl [Benadryl] 25 mg Capsule 25 mg PO BEDTIME PRN (Reason: Allergy Symptoms) RF: 0 oxycodone 5 mg Tablet 5 mg PO Q4HR PRN (Reason: Pain, Moderate (4-6)) 7 Days Qty: 25 RF: 0 polyethylene glycol 3350 17 gram Powder In Packet 17 gm PO DAILY 14 Days Qty: 14 RF: 0 Referrals: Noe Simpson MD [Primary Care Provider] -
--- NOTE | 2021-01-14 08:03 | DI.RAD.S_ITS ---
PROCEDURE: XR ACUTE ABDOMEN SERIES INDICATIONS: fall, left chest pain, no BM TECHNIQUE: One view chest and two views of the abdomen were acquired. COMPARISON: [facility], , ABDOMEN ACUTE SERIES, 12/04/2017, 11:56. FINDINGS: Surgical changes and devices: None. Chest: Lungs are clear. No pneumothorax or large volume pleural effusion. Heart size is normal. Vascular calcifications within the aortic arch. No pneumoperitoneum. Density overlying the right lower lobe favored to represent nipple shadow. Abdomen: Bowel gas pattern is normal. No evidence of obstruction. Gas is noted throughout the colon. No suspicious calcifications. Visualized solid organ contours appear normal. Bones: No suspicious bony lesions. Degenerative changes of the spine and hips. There are minimally displaced fractures along the lateral aspect of the left 3rd through 6th ribs along with additional minimally displaced fractures of the posterior aspect of the left 7th and 8th ribs. IMPRESSION: Multiple minimally displaced rib fractures of the left 3rd through eighth ribs. No pneumothorax. Nonobstructive bowel gas pattern. Dictated by: on 01/14/2021 at 7:37 Approved by: on 01/14/2021 at 7:45
--- NOTE | 2021-01-14 08:11 | DI.US.S_ITS ---
PROCEDURE: US PERIPH VENOUS LOW EXTREM BI INDICATIONS: b/l le swelling, compression fx, not walking around TECHNIQUE: Real-time imaging, as well as color and pulse Doppler interrogation, were performed of the deep veins of both legs from the inguinal ligament to the popliteal fossa. COMPARISON: None. FINDINGS: Right: The common femoral, femoral and popliteal veins are normally compressible, and free of intraluminal thrombus. Color and pulse Doppler demonstrate normal phasic intravascular flow. There is normal augmentation response to distal compression maneuver. Left: The common femoral, femoral and popliteal veins are normally compressible, and free of intraluminal thrombus. Color and pulse Doppler demonstrate normal phasic intravascular flow. There is normal augmentation response to distal compression maneuver. IMPRESSION: No evidence of deep vein thrombosis involving either the right or left lower extremities. Dictated by: Elyse Jean MD, PhD on 01/14/2021 at 9:45 Approved by: Elyse Jean MD, PhD on 01/14/2021 at 9:45
[2021-01-14] MEDS: KETOROLAC 60 MG/2 ML VIAL 15 MG IV (08:32)
[2021-01-14] MEDS: OXYCODONE IR 5 MG TABLET PO ×2 (08:32→10:03)
[2021-01-14 08:39] LABS: Add Manual Diff / Slide Review NO; Basophils Absolute Auto 100 /uL (0-100); Basophils Percent Auto 0.9 % (0-2); Eosinophils Absolute Auto 400 /uL (0-450); Eosinophils Percent Auto 4.8 % (2-4); Hematocrit 31.4 % (36-46); Hemoglobin 10.3 g/dL (12.0-16.0); Lymphocytes Absolute Auto 600 /uL (1100-4500); Lymphocytes Percent Auto 7.7 % (25-40); Mean Corpuscular HGB Conc 32.9 % (30-36); Mean Corpuscular Hemoglobin 28.8 PG (26-34); Mean Corpuscular Volume 87.6 fL (80-100); Monocytes Absolute Auto 500 /uL (0-900); Monocytes Percent Auto 7.3 % (3-14); Neutrophils Absolute Auto 5800 /uL (1500-7000); Neutrophils Percent Auto 79.3 % (50-75); Platelet Count 130 X10^3/uL (150-400); Red Blood Cell Count 3.59 X10^6/uL (4.0-5.2); Red Cell Distribution Width 15.1 % (11.6-14.8); White Blood Cell Count 7.4 X10^3/uL (4.5-11.0)
[2021-01-14 08:50] LABS: Alanine Aminotransferase 26 IU/L (<35); Albumin 3.9 g/dL (3.5-5.0); Albumin Globulin Ratio 1.2 (1.0-2.8); Alkaline Phosphatase 46 U/L (38-126); Aspartate Aminotransferase 34 IU/L (14-36); Bilirubin Total 1.2 mg/dL (0.2-1.3); Blood Urea Nitrogen 16 mg/dL (7-17); Calcium 9.7 mg/dL (8.4-10.2); Carbon Dioxide 20 mmol/L (22-32); Chloride 102 mmol/L (98-107); Creatine Kinase 124 U/L (30-135); Estimated Glomerular Filt Rate > 60.0 mL/min (>60); Globulin 3.3 g/dL (1.7-4.1); Glucose 200 mg/dL (80-110); Lipase 51 U/L (23-300); Potassium 4.3 mmol/L (3.4-5.1); Sodium 133 mmol/L (137-145); Total Protein 7.2 g/dL (6.3-8.2)
[2021-01-14 09:02] LABS: NT-proBNP (BNP-Adult 18+) 1300 pg/mL (<450); Troponin I < 0.012 ng/mL (0.01-0.034)
[2021-01-14 09:06] LABS: CKMB % Relative Index 0.6 % (1.5-5.0); Creatine Kinase MB 0.73 ng/mL (<2.37); HEMOLYSIS 53 (0-50)
[2021-01-14] MEDS: DOCUSATE 100 MG CAPSULE PO (10:04)
[2021-01-14] MEDS: ACETAMINOPHEN 325 MG TABLET 650 MG PO (10:04)
--- NOTE | 2021-01-14 11:43 | PT.IIE ---
Surgical History (Last Reviewed 01/14/21 @ 08:15 by Tamiko Min DO) History of heart artery stent (11/2008) History of open reduction and internal fixation (ORIF) procedure (11/29/17) History of tonsillectomy (1961) Status post appendectomy (1960) Status post Tyler fundoplication (2001) Medical History (Last Reviewed 01/14/21 @ 08:15 by Tamiko Min DO) Adrenal mass Asthma CAD (coronary artery disease) Depression Diabetes mellitus Hemorrhoids History of open fracture Hyperlipidemia Hypertension [place] (myocardial infarction) (11/2008) Open bimalleolar fracture of right ankle (11/29/17) Osteoporosis Vaginal candidiasis Physical Therapy Inpatient Evaluation/Re-Eval M1 PT/OT-IP Prior Functional Status Start: 01/14/21 11:27 Freq: Status: Active Protocol: Document 01/14/21 11:28 [facility] (Rec: 01/14/21 11:42 [facility] [id number]) Medical Review Prior Functional Status Medical History Reviewed Yes Diet/Fluid Consistency Regular Communication communication with nursing prior to PT evaluation Mobility and Gait pt ambulates with a FWW for sumeet, lives with her Independently, moving to [place] this next week to live closer to daughter. Social History Household Members spouse Living Arrangements House Home Equipment Front Wheel Walker M2 PT-IP Current Condition Start: 01/14/21 11:27 Freq: Status: Active Protocol: Document 01/14/21 11:28 [facility] (Rec: 01/14/21 11:42 [facility] [id number]) Physical Therapy Current Condition Current Condition Evaluation Date 01/14/21 Treatment Diagnosis compression fracture thoracic spine and rib fractures from a previous fall M3 PT-IP Subjective Start: 01/14/21 11:27 Freq: Status: Active Protocol: Document 01/14/21 11:28 [facility] (Rec: 01/14/21 11:42 [facility] [id number]) Subjective Physical Therapy Visit Type Type Initial Evaluation Visit Start Time 11:00 Visit Stop Time 11:30 Total Visit Minutes 30 Notes PT consult to check on pt's mobility as the patient was feeling that she may need to go to a SNF Physical Therapy Visit Comments Patient Comments Pt is reclined in bed comfortably and denies any current pain. She reports the percoset with the tylenol that was given to her in the ER has really helped and has helped more than the Oxycodone she has taken when she has pain at home. Her chief complaint is pain in the left rib cage with transfers out of bed. She reports she has been restricting her fluid levels to minimize how many times she has to get out of bed. She notes she is transfering to her left side when getting out of bed Therapy Pain Assessment Pain When Pain Assessed At Rest Pain Present Pain Present Denied Pain M4 PT-IP Mobility and Gait Start: 01/14/21 11:27 Freq: Status: Active Protocol: Document 01/14/21 11:28 [facility] (Rec: 01/14/21 11:42 [facility] [id number]) PT-Bed Mobility Assessment Rolling Type of Rolling Roll to Right Level of Assist Contact Guard Assistance Supine to Sit Supine to Sit Contact Guard Assistance Scooting Scooting to Edge of Bed Contact Guard Assistance PT-Transfer Assessment Sit to and From Stand Sit to and from Stand Contact Guard Assistance Equipment Transfer Assistive Device Gait Belt,Front Wheeled Walker Transfer Ability Level of Assist Contact Guard Assistance Comments Mobility Comments pt was educated in rolling to the right for transfer to minimize pressure on her left rib cage. Her pain levels were very much controlled and she denied pain during the roll and once sitting up at the edge of bed. She performed her bed mobility with CGA. She was able to transfer from sit-stand with the fww and CGA without complaints of pain. M7 PT-IP Assessment and Plan Start: 01/14/21 11:27 Freq: Status: Active Protocol: Document 01/14/21 11:28 [facility] (Rec: 01/14/21 11:42 [facility] [id number]) PT Summary Assessment and Plan Potential Rehabilitation Potential Excellent Status of Condition at Evaluation Stable Summary Assessment Summary Pt appears to have much better pain control with the percocet with tylenol taken on a schedule. She was educated on transferring to her right side to avoid pressure on the left rib cage. She did this without complaints for me with CGA. She was then able to transfer from sit-stand with FWW. She had only been medicating once she had pain at home so I talked to nursing about having her premedicate and be on a pain med schedule for a while until her pain levels decrease. She felt comfortable returning home with her there as her caregiver. Discharge Recommendations PT Discharge Recommendations Home,Home with Assistance Other Discharge Recommendations Pt to discharge home with Transportation Needs at Discharge Private Vehicle
== END 2021-01-14 13:00 | disposition home or self-care (01) ==
PROVIDERS: Emergency Provider Emergency Medicine; PCP Student in an Organized Health Care Education/Training Program
DX: S22.000A Wedge compression fracture of unspecified thoracic vertebra, initial encounter for closed fracture (principal); R07.81 Pleurodynia
CPT/HCPCS: 36415; 74022; 80053; 82550; 82553; 83690; 83880; 84484; 85025; 93005; 93010; 93970; 96374; 97161; 99284; J1885